=== PATIENT | female | born 1950 | race Caucasian/White ===

== ENCOUNTER → 2022-08-08 | Outpatient (CLI) | payer MEDICARE, SELFPAY ==
--- NOTE | 2022-08-09 07:42 | PFT ---
INTRODUCTION: The patient is a 72-year-old female that presents for pulmonary function studies secondary to a diagnosis of lung mass. Respiratory therapy reported good patient effort. Bronchodilators were used during testing. INTERPRETATION: Forced expiration spirometry demonstrates the presence of a severe large airways obstructive ventilatory defect. There was a significant response to aerosolized bronchodilators. Spirograms are of fair quality but do not plateau indicating slow emptying of the lungs. Body plethysmography was performed and revealed an elevated RV to 148% of predicted, indicative of underlying air trapping. Diffusing capacity by single breath CO is reduced to 55% of predicted. IMPRESSION: Partially reversible severe large airways obstructive ventilatory defect with associated air trapping and symmetric reduction in diffusing capacity.
== END | disposition home or self-care (01) ==
PROVIDERS: PCP Internal Medicine Infectious Disease; Referring Provider Internal Medicine Critical Care Medicine; Visit Provider Internal Medicine Critical Care Medicine
DX: R91.8 Other nonspecific abnormal finding of lung field (principal); F17.211 Nicotine dependence, cigarettes, in remission
CPT/HCPCS: 94060; 94726; 94729

== ENCOUNTER 2022-08-22 11:00 | Day surgery (SDC) | payer MEDICARE, SELFPAY ==
--- NOTE | 2022-08-19 07:32 | HP.PCM_ITS ---
[facility] - General General Date of Service: 08/22/22 HPI Narrative The patient is a 72-year-old female who initially presented to the pulmonary medicine clinic on August 06 for the evaluation of a lung mass. A plain film chest x-ray was obtained on July 09, 2022 due to reported dyspnea.? There was concern for a right hilar lung mass.? In follow-up, a CT chest with contrast was then obtained on July 17, 2022.? That imaging study demonstrated the presence of a right hilar lung mass measuring approximately 9 x 5 cm in size.? There was concern for extrinsic compression of the bronchus intermedius with volume loss in the right middle lobe. The patient has an approximate 03-45-mvre-year smoking history, having quit completely in March 2022.? In addition to her personal smoking history, the patient did grow up in a smoking household.? 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 Pulmonary function studies recently completed on August 09, 2022 demonstrated a partially reversible severe large airways obstructive ventilatory defect with associated air trapping and symmetric reduction in diffusing capacity. [facility] Medical History BMI 23.0-23.9, adult Dyspnea on effort Fatigue Mass of right lung Non-smoker Postnasal drip Standardized adult depression screening tool completed Home Medications cholecalciferol (vitamin D3) 250 mcg (10,000 unit) capsule 250 mcg PO QWEEK 08/05/22 [History Last Taken Unknown] guaifenesin 1,200 mg tablet, extended release 12 hr (Mucinex) 1,200 mg PO BID 08/05/22 [History Last Taken Unknown] lorazepam 0.5 mg tablet (Ativan) 0.5 mg PO BID PRN 08/05/22 [History Last Taken Unknown] magnesium 250 mg tablet 250 mg PO DAILY 08/05/22 [History Last Taken Unknown] mecobalamin (vitamin B12) 2,500 mcg chewable tablet mcg PO 08/05/22 [History Last Taken Unknown] vitamin B complex (B Complex-Vitamin B12 tablet) 1 tab PO DAILY 08/05/22 [History Last Taken Unknown] Allergy/AdvReac Type Severity Reaction Status Date / Time No Known Allergies Allergy Unverified 08/05/22 11:07 Family History Father Asthma Son Asthma Mother Breast cancer Uncle Diabetes Type 1 Surgical History H/O tubal ligation Hx of tonsillectomy Social History (Updated 08/05/22 @ 11:18 by Yamileth Lacy) Smoking Status: Former smoker quit date: 03/23/22 Tobacco: How many years used: 50 how long ago did patient quit smoking: march 2022 alcohol intake: never substance use type: does not use caffeine: Yes Type: coffee Number of servings: 2 ROS ROS Narrative 10 systems were reviewed with pertinent positives as noted in the HPI. Physical Exam Const alert and no apparent distress General Appearance: cooperative HEENT normocephalic and head/scalp atraumatic Eyes PERRL and EOMs intact bilaterally Neck supple General: trachea midline Resp normal respiratory effort Auscultation: Negative for rales, rhonchi or wheezes Cardio regular rate and regular rhythm GI normal to inspection, nondistended, normoactive bowel sounds Extremity no clubbing, cyanosis or edema Skin General Skin Exam: no breakdown Neuro no focal motor deficits and no sensory deficits noted Psych cooperative and affect normal Assessment & Plan Assessment/Plan (1) Lung mass: PLAN: The patient presented to our office for the evaluation of a right hilar lung mass noted on CT imaging of the chest from July 17, 2022.? There does appear to be some extrinsic compression affecting the right bronchus intermedius.? In light of the patient's tobacco abuse history, these findings are certainly concerning for an underlying primary lung malignancy.? I explained to the patient the options for moving forward.? I did recommend that we proceed with airway evaluation with EBUS facilitated bronchoscopy to obtain a tissue diagnosis and stage the mediastinum.? Risks and benefits of the proposed procedure were discussed with the patient at length.? The patient is in agreement to proceed.?
[2022-08-19 13:38] LABS: Platelet Count 405 K/mm3 (150-450)
[2022-08-19 13:46] LABS: Prothrombin Time (Protime)PT. 13.1 SECONDS (11.7-14.9)
[2022-08-22] VITALS (7 sets, daily range): BP systolic 126–179; BP diastolic 72–90; PULSE 90–118; RESP 18–28; TEMP 36.2–36.6; O2SAT 92–99; BMI 22.6
--- NOTE | 2022-08-22 | LUNG_PTH ---
PATIENT: MARIAM KOCH LOC: EN U#:[id number] AGE/SX: 72/F ROOM: RE08/22/[address]: Dr. Jay Covarrubias DO : 1950 BED: DIS: 08/22/2022 SPEC #: [id number] RECD: 08/22/22 13:50 STATUS: NEHEMIAS REQ #: [id number] SOLO: 08/22/22 00:[address]: Jay Covarrubias DEPT: SURGICAL PATHOLOGY RECD BY: Alicia Vogel ENTERED: 08/22/22 13:52 SP TYPE: LUNG BX OTHR DR: Dr. Aditi Caba MD Tissues: Lung, NOS Procedures: FNA Specimen Adequacy Special Stain Group I Surgery Specimen Level IV Cytology Other HEADER OPERATION: Endobronchial ultrasound PRE-OP DIAGNOSIS: Lung mass TISSUE SUBMITTED: Bronchial lesion biopsy MICROSCOPIC DIAGNOSIS Bronchial lesion, biopsy: Non-small cell carcinoma, favor poorly differentiated adenocarcinoma, consistent with lung primary. See comment. SJ:em 08/25/2022 COMMENT The specimen is evaluated at the time of biopsy by Dr. Dawn. Immediate Evaluation = Malignant cells present derived from non-small cell carcinoma. Immunohistochemistry ([id number]) supports the above diagnosis. Molecular studies on the tumor can be performed if clinically indicated. Please notify the laboratory if they are needed. Please also refer to additional cytology specimen [id number]. Case has been reviewed in consultation with Dr. Elder who concurs with the above diagnosis. IDC:AM MICROSCOPIC DESCRIPTION Slides are reviewed. GROSS DESCRIPTION Received in fixative is one container labeled with the patient's name and designated endobronchial biopsy. The specimen consists of multiple irregular fragments of light bunch soft tissue that in aggregate measure 0.5 x 0.1 x 0.1 cm. The specimen is totally submitted in one cassette. One touch imprint is prepared at the time of core biopsy. / LIONEL:em 08/22/2022 TC:0 [facility]: [id number], [id number] ADDENDUM ADDENDUM ADDENDUM ADDENDUM ADDENDUM ADDENDUM ADDENDUM ADDENDUM ADDENDUM ADDENDUM ADDENDUM ADDENDUM ADDENDUM ADDENDUM ADDENDUM ADDENDUM ADDENDUM ADDENDUM ADDENDUM ADDENDUM 09/15/2022 09:34 ADDENDUM 09/15/2022 09:34 ADDENDUM 09/15/2022 09:34 ADDENDUM 09/15/2022 09:34 ADDENDUM 09/15/2022 09:34 PD-L1 (KEYTRUDA) IMMUNOHISTOCHEMICAL ANALYSIS FROM [facility] RESULTS: Tumor proportion score: 100% / Positive [facility] ADVANCED LUNG CANCER NGS REPORT FROM [facility] RESULT SUMMARY: Abnormal IMMUNOTHERAPY BIOMARKERS: Tumor Mutation [place]: High (14.1 Mutations / MB) Microsatellite Instability: MSI Negative (4.03%) PERTINENT NEGATIVE RESULTS: The following genes are NEGATIVE for clinically relevant mutations. Mutational hotspots and surrounding exonic regions were interrogated for DNA level point mutations and indels (fusions not assayed). AKT1, ALK, ATR, CHEK1, DDR2, EGFR, ERBB2, ERBB3, FGFR1, MAP2K1, MET, NRAS, NTRK1, PIK3CA, POLD1, POLE, ROS1, STK11, TERT Please see complete report in e-chart or EMR
--- NOTE | 2022-08-22 | ASPIG_PTH ---
PATIENT: MARIAM KOCH LOC: EN U#:[id number] AGE/SX: 72/F ROOM: RE08/22/[address]: Dr. Jay Covarrubias DO : 1950 BED: DIS: 08/22/2022 SPEC #: [id number] RECD: 08/22/22 13:54 STATUS: NEHEMIAS REFaustina #: [id number] SOLO: 08/22/22 00:[address]: Jay Covarrubias DEPT: CYTOLOGY RECD BY: Alicia Vogel ENTERED: 08/22/22 13:57 SP TYPE: ASP OUT OTHR DR: Dr. Aditi Caba MD Tissues: A - Lung, NOS B - Lung, NOS C - Lung, NOS D - Lung, NOS E - Lung, NOS Procedures: FNA Specimen Adequacy Special Stain Group II Surgery Specimen Level IV Cytology Other HEADER OPERATION: Endobronchial ultrasound PRE-OP DIAGNOSIS: Lung mass TISSUE SUBMITTED: A - EBUS, TBNA, site 7 #1, B - EBUS, TBNA, site 7 #2, C - EBUS, TBNA, site 7, D - EBUS, TBNA, site 7 brush, E - EBUS, TBNA, site 7 brush (smears) DIAGNOSIS CYTOLOGY A. EBUS, TBNA, site 7 #1 (smears): Predominantly respiratory epithelial cells. Negative for malignant cells. B. EBUS, TBNA, site 7 #2 (smears): Malignant cells present derived from non-small cell carcinoma. C. EBUS, TBNA, site 7 fluid (cytospin and cell block): Malignant cells present derived from non-small cell carcinoma. D. EBUS, TBNA, site 7 brush fluid (cytospin and cell block): A few malignant cells present derived from non-small cell carcinoma. E. EBUS, TBNA, site 7 brushings (smears): Malignant cells present derived from non-small cell carcinoma. SJ:em 08/25/2022 COMMENT The specimen is evaluated at the time of procedure by Dr. Dawn. Rapid On-Site Evaluation: A. EBUS, TBNA, site 7 #1: Predominantly respiratory epithelial cells. Negative for malignant cells. B. EBUS, TBNA, site 7 #2: Malignant cells present derived from non-small cell carcinoma. Please also make reference to additional specimen ([id number]), bronchial lesion, biopsy with diagnosis of ?non-small cell carcinoma, favor poorly differentiated adenocarcinoma, consistent with lung primary?. Case has been reviewed in consultation with Dr. Elder who concurs with the above diagnosis. IDC:AM CYTOLOGY STUDY Slides are reviewed. CYTOLOGY GROSS A - Received labeled with the patient's name and and designated EBUS, TBNA, site 7 #1. The specimen consists of two stained smears for PETER (Rapid On-Site Evaluation). B - Received labeled with the patient's name and and designated EBUS, TBNA, site 7 #2. The specimen consists of two stained smears for PETER. C - Received in RPMI is 20 ml of pink, needle rinsed fluid labeled with the patient's name and and designated EBUS, TBNA, site 7. The specimen is submitted for cell block preparation. D - Received is a metallic endoscopic cytobrush with adherent minute fragments of bunch-red tissue brush in 2 ml of clear red fluid and labeled with the patient's name and and designated per the requisition as brush. The material is dislodged from the brush and submitted for cytology preparation including cell block. E - Received are nine smears labeled with the patient's name and designated per the requisition as brush. Submitted for staining. / SJ:rg 08/22/2022 TC:0 CPT: 80389 x2, 67364, 98736 x2, 08660, 61210
--- NOTE | 2022-08-22 | IMM_PTH ---
PATIENT: MARIAM KOCH LOC: EN U#:[id number] AGE/SX: 72/F ROOM: RE08/22/[address]: Dr. Jay Covarrubias DO : 1950 BED: DIS: 08/22/2022 SPEC #: [id number] RECD: 08/25/22 12:35 STATUS: NEHEMIAS REQ #: [id number] SOLO: 08/22/22 00:[address]: Jay Covarrubias DEPT: IMMUNOHISTOCHEMISTRY RECD BY: Lorelei Oliva ENTERED: 08/25/22 12:37 SP TYPE: IMMUNO OTHR DR: Dr. Aditi Caba MD Tissues: Lung, NOS Procedures: RCC (add) NAPSIN A (add) CK20 (add) CK5-6 (add) CK7 (add) CK8 (add) HEP PAR (add) AR (add) TTF1 (add) Pankeratin (add) P40 (add) ER (initial) PHYSICIAN & [address] [address] SPECIMEN INFORMATION: Tissue Source: Bronchial lesion Clinical Info: Lung mass Specimen Number: [id number] CPT code: 66174, 37280 x11 METHODOLOGY: Deparaffinized sections of prefer/formalin-fixed tissue or PAP/DQ stained slides are incubated with monoclonal/polyclonal antibodies/oligonucleotide probes. Localization is made via biotin free immunoperoxidase method. Appropriate controls are performed and reacted as expected. Results on target cell population are indicated in the following table: RESULTS: ANTIBODY / CLONE RESULT ER (6F11) positive, focal AR (1E2) negative AE1-3 (AE1/AE3/PCK26) positive CK7 (OV-TL12/30) positive CK8 (99xcrkJ53) positive CK20 (KS20.8) negative TTF-1 (8G7G3/1) positive Napsin A (Rabbit Polyclonal) positive HepPar (OCh1E5) negative RCC (PN-15) negative CK5-6 (D5 & 1684) negative P40 (BC28) negative These tests were developed and their performance characteristics determined by [facility]. They may not have been cleared or approved by the U.S. Food and Drug Administration. The FDA has determined that such clearance or approval is not necessary. The above immunohistochemical/dualISH markers are ordered and reviewed by the Pathologist. INTERPRETATION: Bronchial lesion, biopsy: Non-small cell carcinoma, favor poorly differentiated adenocarcinoma consistent with lung primary. This case has been reviewed in consultation with Dr. Elder who concurs with the above diagnosis. SJ:em 08/26/2022
[2022-08-22] MEDS: Lactated Ringers 1,000 ML 15 ML IV (11:37)
[2022-08-22] MEDS: Lidocaine Jelly 2% 20 ML Syringe (URO-JET) 1 APPLIC (13:02)
--- NOTE | 2022-08-22 13:38 | OP.BRONCH_ITS ---
Patient Name: Rani Jean Procedure Date: 08/22/2022 12:38 PM Date of : 1950 Age: 72 Procedure: Bronchoscopy Indications: Mediastinal adenopathy, Lung mass suspicious for cancer Providers: Jay Covarrubias MD Referring MD: Jay Covarrubias MD Complications: No immediate complications Procedure: Pre-Anesthesia Assessment: - A History and Physical has been performed. Patient meds and allergies have been reviewed. The risks and benefits of the procedure and the sedation options and risks were discussed with the patient. All questions were answered and informed consent was obtained. Patient identification and proposed procedure were verified prior to the procedure by the physician and the nurse in the procedure room. Mental Status Examination: alert and oriented. Airway Examination: normal oropharyngeal airway. Respiratory Examination: poor air movement. CV Examination: normal. ASA Grade Assessment: III - A patient with severe systemic disease. After reviewing the risks and benefits, the patient was deemed in satisfactory condition to undergo the procedure. The anesthesia plan was to use general anesthesia. Immediately prior to administration of medications, the patient was re-assessed for adequacy to receive sedatives. The heart rate, respiratory rate, oxygen saturations, blood pressure, adequacy of pulmonary ventilation, and response to care were monitored throughout the procedure. The physical status of the patient was re-assessed after the procedure. After I obtained informed consent, the scope was passed under direct vision. Throughout the procedure, the patient's blood pressure, pulse, and oxygen saturations were monitored continuously. The ultrasound bronchoscope was introduced through the mouth, via laryngeal mask airway and advanced to the tracheobronchial tree. The procedure was accomplished without difficulty. The patient tolerated the procedure well. Findings: The laryngeal mask airway is in good position. The vocal cords appear normal. The subglottic space is normal. The trachea is of normal caliber. The ayah is sharp. The tracheobronchial tree was examined to at least the first subsegmental level. Bronchial mucosa and anatomy are normal; there are no endobronchial lesions, and no secretions. The laryngeal mask airway is in good position. The vocal cords appear normal. The subglottic space is normal. The trachea is of normal caliber. The ayah is sharp. The tracheobronchial tree of the left lung was examined to at least the first subsegmental level. Bronchial mucosa and anatomy are normal; there are no endobronchial lesions, and no secretions. Right Lung Abnormalities: Extrinsic compression was found in the bronchus intermedius. The airway lumen is occluded. The lesion was not traversed. A completely obstructing mass was found in the bronchus intermedius. The mass was large and endobronchial. The lesion was not traversed. Endobronchial biopsies of a mass were performed in the bronchus intermedius using a forceps and sent for routine cytology. Three samples were obtained. Brushings of a mass were obtained in the bronchus intermedius with a cytology brush and sent for routine cytology. One sample was obtained The scope was withdrawn and replaced with the EBUS bronchoscope to accomplish the ultrasound examination. Lymph Nodes: An endobronchial ultrasound endoscope was utilized to systematically examine the subcarinal mediastinum (level 7) in order to assist with fine needle aspiration. Lymph node sizing was performed via endobronchial ultrasound for suspected lung cancer. Sampling by transbronchial needle aspiration was also performed using an Olympus EBUS-TBNA 19 gauge needle in the subcarinal mediastinum (level 7) and sent for routine cytology. - The 7 (subcarinal) node was evaluated. Two samples with the needle were obtained. Lymph Nodes: Rapid On-Site Evaluation (PETER): Preliminary cytology was suggestive of non small cell carcinoma (final results are pending) in the subcarinal mediastinum (level 7). Impression: - Mediastinal adenopathy - Lung mass suspicious for cancer - The airway examination of the left lung was normal. - Extrinsic compression was found in the bronchus intermedius. - An endobronchial mass was found in the bronchus intermedius. This lesion is likely malignant. - Endobronchial ultrasound was performed. - Rapid On-Site Evaluation (PETER): Preliminary cytology was suggestive of non small cell carcinoma in node level 7 (final results are pending). - An endobronchial biopsy was performed. - Brushings were obtained. Recommendation: - Await biopsy results. Procedure Code(s): --- Professional --- 75535, Bronchoscopy, rigid or flexible, including fluoroscopic guidance, when performed; with endobronchial ultrasound (EBUS) guided transtracheal and/or transbronchial sampling (eg, aspiration[s]/biopsy[ies]), one or two mediastinal and/or hilar lymph node stations or structures 81186, Bronchoscopy, rigid or flexible, including fluoroscopic guidance, when performed; with bronchial or endobronchial biopsy(s), single or multiple sites 64902, Bronchoscopy, rigid or flexible, including fluoroscopic guidance, when performed; with brushing or protected brushings Diagnosis Code(s): --- Professional --- R59.0, Localized enlarged lymph nodes R91.8, Other nonspecific abnormal finding of lung field CPT copyright 2017 [employer]. All rights reserved. 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 DO Jay Hyde MD 08/22/2022 1:38:16 PM This report has been signed electronically. Number of Addenda: 0 Note Initiated On: 08/22/2022 12:38 PM
== END 2022-08-22 16:05 | disposition home or self-care (01) ==
LOC: EN 11:02 → AC 11:02
PROVIDERS: PCP Internal Medicine Infectious Disease; Referring Provider Internal Medicine Infectious Disease; Visit Provider Internal Medicine Critical Care Medicine
PROC: BB4BZZZ Ultrasonography of Pleura (ICD-10-PCS; CPT 31652; principal; 2022-08-22 11:30)
DX: C34.91 Malignant neoplasm of unspecified part of right bronchus or lung (principal); R59.0 Localized enlarged lymph nodes; Z87.891 Personal history of nicotine dependence; Z79.899 Other long term (current) drug therapy
CPT/HCPCS: 31652; 31625; 31623; 36415; 85049; 85610; 85730; 88161; 88172; 88305; 88312; 88313; 88341; 88342; J7120; J2405

== ENCOUNTER → 2022-09-16 | Outpatient (CLI) | payer MEDICARE, SELFPAY ==
--- NOTE | 2022-09-16 10:00 | PET_ITS ---
EXAMINATION: FDG PET/CT INDICATIONS: 72-year-old female with a history of primary lung carcinoma, presenting for initial staging examination. COMPARISON EXAMINATION: None available INDEX LESION SIZE SUV INTERPRETATION Right mid lung field, right middle lobe 51.8 mm 22.2 Fulfills quantitative criteria for viable neoplasm ? Right thoracic perihilum, mediastinum 56.5 mm 14.4 Fulfills quantitative criteria for viable neoplasm ? Pancreatic head, body, peripancreatic soft tissue mass formation 30.7 mm largest 22.6 max Fulfills quantitative criteria for viable neoplasm ? Bilateral chest wall-rib ? 19.4 max Quantitative criteria for viable neoplasm are fulfilled ? NON-INDEX LESION ? ? ? Additional right hemithorax pulmonary parenchyma ? 1.9 max Quantitative criteria for viable neoplasm not fulfilled TECHNIQUE: Following the intravenous administration of 12.62 mCi of F-18 deoxyglucose via the right wrist, multiplanar image acquisitions of the head, neck, chest, abdomen and pelvis to the level of the midthigh, obtained at one-hour post radiopharmaceutical administration contemporaneously interpreted with the current CT of the chest, abdomen and pelvis dated 09/16/2022 via coregistration reveal: SERUM GLUCOSE LEVEL: 120 mg/dL HEIGHT: 65 inches WEIGHT: 126 pounds FINDINGS: HEAD/NECK: There is no evidence of abnormal increased glucose metabolism in the pharyngeal mucosal space, parapharyngeal space, oropharynx, bilateral-lateral and anterior neck, hypopharynx and distribution of the larynx. The visualized portion of the cerebral cortical-subcortical structures demonstrate symmetric and preserved glucose metabolism. CHEST: Facilitated FDG uptake is noted heterogeneously in the distribution of the right middle lobe. The calculated maximum standard uptake value is 22.2. The maximal axial diameter of the metabolic, morphologic abnormality is 51.8 mm. Additional subtle foci of increased FDG concentration are manifest in the right upper lung field. The calculated standard uptake value is 1.9. Facilitated FDG uptake is manifest in the paraesophageal lymph node basin involving lymph node station 8 and the right thoracic perihilum involving lymph node station 10R. The calculated maximum standard uptake value is 14.4. The maximal axial diameter of the largest corresponding metabolic, morphologic abnormality is 56.[address] of the chest demonstrates the following anatomic characteristics: A right hemithorax pleural effusion is nonglucose avid. Airspace disease defined in the right lobe anterior lung zone demonstrates no evidence of quantitatively significant increased FDG uptake. Atherosclerotic calcification is defined in the thoracic aorta without evidence of dilatation, aneurysm formation. Coronary artery calcification is observed. ABDOMEN/PELVIS: Enhanced FDG uptake is noted in the upper abdominal retroperitoneum which appears contiguous to the pancreatic head and body in a single nodular focus in the peripancreatic lymph node basin. The calculated maximum standard uptake value is 22.6. The maximal axial diameter of the largest metabolic, morphologic abnormality is 30.7 mm. Normal physiologic distribution of the radiopharmaceutical is identified in the hepatic (3.1) and splenic parenchyma, both renal units, urinary bladder, and visualized intestinal tract. CT of the abdomen and pelvis is remarkable for the following: Calcification is noted in the right adnexa without evidence of increased tracer uptake. Atherosclerotic calcification is defined in the abdominal aorta without evidence of dilatation, aneurysm formation. Pelvic arterial calcification is observed. SKELETAL: Facilitated uptake is noted in the bilateral chest wall-rib corresponding to destructive changes noted on CT of the chest dated 09/16/2022 in the analogous locations. The calculated maximum standard uptake value is 19.4. PET/PET/CT Tumor Base -Thigh Init IMPRESSION: 1. ABNORMAL EXAMINATION INDICATIVE OF MALIGNANT-VIABLE NEOPLASM. 2. Increased radiopharmaceutical concentration manifest in the right mid anterior lung, right middle lobe fulfills quantitative criteria for viable neoplasm. 3. Facilitated uptake noted in the right thoracic perihilum and mediastinum fulfills quantitative criteria for malignant transformation (Lidia et al, Journal of Clinical Oncology, 16:2142, 1998). 4. Focal increased radiopharmaceutical concentration in two separate locations in the region of the pancreatic head and body, as well as the soft tissue density in the peripancreatic soft tissues fulfills quantitative criteria for viable neoplasm. 5. Enhanced tracer uptake noted in the left anterior and right posterior chest wall-rib fulfill quantitative criteria for viable osseous neoplasm (John, et al, Clinical Nuclear Medicine, 29:161, 2004). 6. Additional right hemithorax pulmonary parenchymal hypermetabolic foci do not fulfill quantitative criteria for malignant transformation. Electronic Signature Yovany Alex D.O. Accurate Quantification of SUVs for this report are calculated using the exclusive [employer]. ([place]. Patent No. [id number] [phone] [id number] [phone] patent [phone] [id number] [phone] [phone]). Standardization and correction of the FDG SUV metric via [employer] technology allow for vendor non-specific objective quantitative examination comparison and optimization of the sensitivity and specificity of the FDG PET-CT examination. Electronically Signed: Yovany Alex, at 17:48 EDT ,
== END | disposition home or self-care (01) ==
PROVIDERS: PCP Internal Medicine Infectious Disease; Referring Provider Internal Medicine Hematology & Oncology; Visit Provider Internal Medicine Hematology & Oncology
DX: C34.2 Malignant neoplasm of middle lobe, bronchus or lung (principal); D49.1 Neoplasm of unspecified behavior of respiratory system
CPT/HCPCS: 78815; A9552

== ENCOUNTER → 2022-12-31 | Outpatient (CLI) | payer MEDICARE, SELFPAY ==
[2022-12-31 15:05] LABS: Anion Gap 4 (5-15); BUN 15 mg/dL (7-18); BUN/Creat Ratio 29.4 RATIO (10-20); Calcium,Total 8.9 mg/dL (8.5-10.1); Chloride 101 mmol/L (98-107); Creatinine, Serum 0.51 mg/dL (0.55-1.02); EST Glomerular Filtration Rate 126 mL/min (>60); Est Glom Filt Rate - Afr Amer 152 mL/min (>60); Glucose 90 mg/dL (74-106); Potassium 4.2 mmol/L (3.5-5.1); Sodium Level 133 mmol/L (136-145)
== END | disposition home or self-care (01) ==
LOC: LAB 13:20
PROVIDERS: PCP Internal Medicine Infectious Disease; Referring Provider Internal Medicine Nephrology; Visit Provider Internal Medicine Nephrology
DX: N17.9 Acute kidney failure, unspecified (principal)
CPT/HCPCS: 36415; 80048

== ENCOUNTER 2023-05-11 07:36 | Inpatient (IN) | payer MEDICARE, SELFPAY ==
[2023-05-11 07:37] VITALS: BP 139/96; PULSE 93; RESP 14; TEMP 36.5; O2SAT 99
--- NOTE | 2023-05-11 07:53 | CT_ITS ---
STUDY: CT ABDOMEN AND PELVIS WITH CONTRAST REASON FOR EXAM: Female, 72 years old. Hematuria, recent renal biopsy on right RADIATION DOSAGE (If Supplied By Facility): CTDIvol = ( 12.43 ) mGy, DLP = ( 542.59 ) mGy TECHNIQUE: Transaxial images were obtained from the dome of the diaphragm to the symphysis pubis without oral contrast. IV 100mL Isovue-300 was administered. Sagittal and coronal images were reconstructed. Individualized dose optimization techniques were used for this CT. COMPARISON: None. FINDINGS: Focal infiltrate is seen in the right middle lobe with mild volume loss. There is a 2.7 cm x 1.9 cm x 5.7 cm retrocrural lymph node in the upper right side of the abdomen. Coronary artery calcification. There is decreased attenuation of the liver consistent with steatosis. Normal gallbladder and extrahepatic biliary system. Normal spleen. There is dilatation of the pancreatic duct with the atrophy of the body and tail portions of the pancreas. Normal bilateral adrenal glands. There is a 3.2 cm x 3.1 cm heterogeneous hypodense mass in the anterior lower pole of the right kidney. Perinephric stranding is visualized. There is thickening of the posterior pararenal space. This is in keeping with the patient''s history of a recent renal biopsy. Normal left kidney. Normal visualized stomach. Normal small intestine. Normal colon. The appendix is visualized and appears normal. There is diffuse atherosclerotic calcification of the abdominal aorta and major visceral branches, without a demonstrated aneurysm. Normal inferior vena cava. Normal retroperitoneum. There is a 4.8 cm x 6.2 cm mass at the base of the bladder more prominent on the right side. There is a left-sided inguinal hernia containing adipose tissue. There are mild degenerative changes of the visualized lumbar spine. CT/Abdomen/Pelvis W IV Cont ONLY IMPRESSION: Right middle lobe infiltrate with volume loss. Atrophy of the body and tail portions of the pancreas with dilated pancreatic duct. Fatty infiltration of the liver. 3.2 cm x 3.1 cm heterogeneous hypodense mass in the anterior lower pole of the right kidney with right perinephric and perinephric stranding in keeping with recent history of biopsy. There is evidence of a 2.7 cm x 1.9 cm x 5.7 cm right retrocrural enlarged lymph node. There is a 4.8 cm x 6.2 cm mass at the base of the bladder more prominent on the right side. A neoplastic process should be pulled Electronically Signed: Evans Wilson MD at 9:04 EST ,
--- NOTE | 2023-05-11 07:54 | EX.ED.DYSGE1 ---
HPI History of Present Illness Chief Complaint: Complaint Detail of Chief Complaint: Hematuria Informant: patient Narrative Narrative: Patient presents with hematuria that started around 3 AM today. Patient tells me that she had a renal biopsy on May 07 because of a mass on her right kidney. After the biopsy she had a small amount of hematuria that resolved after several hours and she has not had any since until this morning. She complains of urgency but then only able to get small amounts of urine out. She did have some pain in her right low back for about 5 minutes that was dull and achy but now resolved. No significant history of UTIs. Patient currently being treated for lung cancer and is currently on immunotherapy last summer she did have chemotherapy. Patient denies any fevers or chills or sweats. Patient not anticoagulated. [facility] Medical History Anxiety BMI 23.0-23.9, adult Dyspnea on effort Fatigue Former smoker History of echocardiogram History of stress test Mass of right lung Non-smoker Postnasal drip Shortness of breath on exertion Standardized adult depression screening tool completed Wears dentures Wears glasses Home Medications cholecalciferol (vitamin D3) 250 mcg (10,000 unit) capsule 250 mcg PO DAILY 08/05/22 [History Last Taken Unknown] guaifenesin 1,200 mg tablet, extended release 12 hr (Mucinex) 1,200 mg PO BID 08/05/22 [History Last Taken Unknown] lorazepam 0.5 mg tablet (Ativan) 0.5 mg PO BID PRN Anxiety 08/05/22 [History Last Taken 08/22/22 08:30] magnesium 250 mg tablet 250 mg PO DAILY 08/05/22 [History Last Taken Unknown] mecobalamin (vitamin B12) 2,500 mcg chewable tablet 2,500 mcg PO DAILY 08/05/22 [History Last Taken Unknown] vitamin B complex (B Complex-Vitamin B12 tablet) 1 tab PO DAILY 08/05/22 [History Last Taken Unknown] Nebulizer machine #1 ea 08/29/22 [Rx Last Taken Unknown] albuterol sulfate 2.5 mg/3 mL (0.083 %) solution for nebulization 2.5 mg (3 mL) inhalation Q4H PRN Sob &/Or Wheezing #180 mL 08/29/22 [Rx Last Taken Unknown] albuterol sulfate 90 mcg/actuation aerosol inhaler (Ventolin HFA) 2 puff inhalation Q4H PRN shortness of breath or wheezing #18 grams 08/29/22 [Rx Last Taken Unknown] fluticasone fur. 200 mcg-umeclid 62.5 mcg-vilant 25 mcg inhalat.powder (Trelegy Ellipta) 1 inh inhalation DAILY #3 ea 11/17/22 [Rx Last Taken Unknown] Allergy/AdvReac Type Severity Reaction Status Date / Time No Known Allergies Allergy Verified 05/11/23 07:40 Family History Father Asthma Son Asthma Mother Breast cancer Uncle Diabetes Type 1 Surgical History H/O tubal ligation Hx of tonsillectomy Social History Smoking Status: Former smoker quit date: 03/23/22 Tobacco: How many years used: 50 how long ago did patient quit smoking: march 2022 alcohol intake: never substance use type: does not use caffeine: Yes Type: coffee Number of servings: 2 ROS ROS ED Review of Systems ROS Unobtainable: other Constitutional Constitutional ED: Reports lethargy; Denies chills, fever(s), sweats or weight loss Eyes Eyes: Denies blurry vision, change in vision or diplopia ENT ENT ED: Denies rhinorrhea or sore throat Cardiovascular Cardiovascular: Denies chest pain, orthopnea or racing heartbeat Respiratory/Chest Respiratory/Chest: Denies cough, dyspnea, dyspnea on exertion, orthopnea or sputum Gastrointestinal Gastrointestinal: Denies abdominal pain, diarrhea, nausea or vomiting Genitourinary Genitourinary ED: Reports hematuria; Denies dysuria or urinary frequency Musculoskeletal Musculoskeletal: Reports back pain; Denies arthralgias, myalgias or neck pain Integumentary Denies abscess, Abrasions or rash Neurologic Neurologic: Denies headache(s) or weakness Psychiatric Psychiatric: Denies anxiety, depression or suicidal thoughts Endocrine Endocrinology: Denies polydipsia, polyphagia or polyuria Hematologic/Lymphatic Hematologic/Lymphatic: Denies easy bleeding, easy bruising or lymphadenopathy Allergic/Immunologic Allergic/Immunologic ED: Denies mouth swelling, tongue swelling or urticaria EXAM Physical Exam Const Vital Signs: 05/11/23 07:37 Temperature 97.7 F L Temperature Source Temporal Pulse Rate 93 Respiratory Rate 14 Blood Pressure 139/96 H Blood Pressure Mean 110 Pulse Ox 99 Oxygen Delivery Method Room Air Positive well nourished and well developed General Appearance ED: well developed and NAD HEENT Reports TM's clear and moist mucous membranes normocephalic and atraumatic; Negative for trauma or tenderness Tympanic Membrane ED: Yes TM's clear Eyes PERRL and EOMs intact bilaterally General Eye ED: Negative for pale conjunctiva or scleral icterus Neck no lymphadenopathy, supple and no JVD General: Negative for tenderness Chest Wall inspection of chest normal and palpation of chest normal Chest: Negative for tenderness Resp normal respiratory effort and clear to auscultation bilaterally Effort and Inspection: Negative for respiratory distress or pain with movement Auscultation: Negative for rhonchi, wheezes or diminished lung sounds Cardio regular rate, regular rhythm, S1 normal heart sound, S2 normal heart sound and no murmurs Peripheral Pulses: pulses 2+ throughout GI normal to inspection, nondistended, normoactive bowel sounds, soft to palpation, non-tender, non-distended and no masses Back/Spine no CVA tenderness and no thoracic nor lumbar tenderness Extremity normal to inspection General Extremety ED: Negative for edema General Extremity: Negative for edema Neuro oriented x3, CN's II-XII intact bilaterally, no sensory deficits noted and gait normal Sensorium / Orientation: awake, alert, oriented to person, oriented to place and oriented to time Motor Exam: strength 5/5 throughout and strength abnormal Psych mental status grossly normal Skin no rashes or lesions noted and no wounds MDM MDM MDM Narrative Medical decision making narrative: Patient presents with hematuria. IV line established on arrival. CBC with differential count of 3.3 with hemoglobin 10.0 and platelet count of 145. Chemistries unremarkable. BUN was 12 and creatinine 0.73. Urinalysis obtained showed greater than 100 RBCs and 0-5 WBCs with +1 bacteria. I will send off a culture. We did obtain a CT scan of the abdomen pelvis with IV contrast that showed a enlarged lymph node right upper abdomen as well as some right perinephric stranding from prior biopsy. Patient also noted to have a mass on the right kidney which was biopsied. Patient also noted to have a mass in the bladder that measured 4.8 x 6.2 cm. I was able to review her blood work from April 30 prior to her biopsy and her hemoglobin at that time was 12.2. She has dropped 2 g. Discussed case with urologist on-call who recommended bladder irrigation and admission. His suspicion is that the bladder mass may be a large blood clot. May need further diagnostics if bladder mass does not resolve with irrigation such as a bladder scope. Case will be discussed with hospitalist to evaluate patient for admission and urologist will consult. Lab Data Attestation: I reviewed the patient's lab results. Labs: Laboratory Results - last 24 hr 05/11/23 08:00 WBC 3.3 L RBC 2.99 L Hgb 10.0 L Hct 29.9 L MCV 100.0 H MCH 33.4 H MCHC 33.4 RDW Std Deviation 45.1 H RDW Coeff of Francie 12.5 Plt Count 145 L MPV 9.0 Immature Gran % (Auto) 0.600 Neut % (Auto) 54.8 Lymph % (Auto) 22.2 Mora % (Auto) 21.8 H Eos % (Auto) 0.0 Baso % (Auto) 0.6 Absolute Neuts (auto) 1.8 L Absolute Lymphs (auto) 0.72 L Nucleated RBC % 0 Sodium 135 L Potassium 4.2 Chloride 105 Carbon Dioxide 26.0 Anion Gap 4 L BUN 12 Creatinine 0.73 Estim Creat Clear Calc 54.56 Est GFR (MDRD) Af Amer 101 Est GFR (MDRD) Non-Af 84 BUN/Creatinine Ratio 16.5 Glucose 142 H Calcium 9.1 Urine Color Red Urine Clarity Turbid Urine pH 7.0 Ur Specific [place] 1.010 Urine Protein 500 H Urine Glucose (UA) Normal Urine Ketones 5 H Urine Occult Blood 150 H Urine Nitrite Negative Urine Bilirubin Negative Urine Urobilinogen Normal Ur Leukocyte Esterase Negative Urine RBC > 100 SEEN Urine WBC 0-5 SEEN Ur Squamous Epith Cells 5-10 SEEN Urine Bacteria 1+ Urine Mucus 0 SEEN Radiography Diagnostic Testing: Clinical Impression(s) from Imaging Studies Abdomen/Pelvis CT 05/11/23 07:53 IMPRESSION: Right middle lobe infiltrate with volume loss. Atrophy of the body and tail portions of the pancreas with dilated pancreatic duct. Fatty infiltration of the liver. 3.2 cm x 3.1 cm heterogeneous hypodense mass in the anterior lower pole of the right kidney with right perinephric and perinephric stranding in keeping with recent history of biopsy. There is evidence of a 2.7 cm x 1.9 cm x 5.7 cm right retrocrural enlarged lymph node. There is a 4.8 cm x 6.2 cm mass at the base of the bladder more prominent on the right side. A neoplastic process should be pulled Electronically Signed: Evans Wilson MD at 9:04 EST , Discharge Plan Triage Chief Complaint: Complaint ED Provider: Carlos Chanel Dx/Rx/DC Orders Clinical Impression: Hematuria, History of lung cancer, Bladder mass Prescriptions: No Action Mucinex 1,200 mg tablet extended release 12hr 1,200 mg PO BID lorazepam [Ativan] 0.5 mg tablet 0.5 mg PO BID PRN (Reason: Anxiety) cholecalciferol (vitamin D3) 250 mcg (10,000 unit) capsule 250 mcg PO DAILY magnesium 250 mg tablet 250 mg PO DAILY vitamin B complex [B Complex-Vitamin B12] Tablet 1 tab PO DAILY mecobalamin (vitamin B12) 2,500 mcg tablet,chewable 2,500 mcg PO DAILY albuterol sulfate 2.5 mg /3 mL (0.083 %) solution for nebulization 2.5 mg inhalation Q4H PRN (Reason: Sob &/Or Wheezing) Qty: 180 3RF albuterol sulfate [Ventolin HFA] 90 mcg/actuation HFA aerosol inhaler 2 puff inhalation Q4H PRN (Reason: shortness of breath or wheezing) Qty: 18 6RF (DME) Nebulizer machine See Rx Instructions .ROUTE .MEDSUPPLY Qty: 1 0RF Rx Instructions: As directed Trelegy Ellipta 200-62.5-25 mcg blister with device 1 inh inhalation DAILY Qty: 3 3RF Primary Care Provider: Feroz Miranda Referrals: Aditi Caba MD [Non-Staff] - Disposition Disposition: Acute Care [facility]
[2023-05-11 08:04] VITALS: BMI 24.5
[2023-05-11] MEDS: 0.9% Normal Saline (1000mL) 1,000 ML 150 ML IV ×3 (08:06→18:18)
[2023-05-11 08:07] LABS: Mucous, Urine 0 SEEN /hpf (<or=2+)
[2023-05-11 08:13] LABS: Absolute Lymphocyte Count 0.72 X10^3/uL (0.83-4.51); Absolute Neutrophil Count 1.8 X10^3/uL (2.0-7.7); Basophil# 0.02 X10^3/uL; Basophil% 0.6 % (0-1); Color, Urine Red (Yellow); Glucose, Dipstick Normal (Normal); Hematocrit 29.9 % (37-47); Ketone-Dipstick 5 mg/dl (Negative); Leukocyte Esterase-Dipstick Negative /ul (Negative); Lymphocyte # 0.72 X10^3/ul (0.83-4.51); Lymphocyte % 22.2 % (19-41); Mean Corp Hgb Conc 33.4 g/dL (32-36); Mean Corpuscular Hgb 33.4 pg (27.0-32.0); Monocyte# 0.71 X10^3/uL; Monocyte% 21.8 % (0-10); NRBC Flagged by Analyzer 0 % (0-5); Neutrophil # 1.78 X10^3/uL (2.7-7.7); Neutrophil % 54.8 % (47-70); Nitrite-Dipstick Negative (Negative); Occult Blood-Urine 150 /ul (Negative); Platelet Count 145 K/mm3 (150-450); Protein-Dipstick 500 mg/dl (Negative); RBC Distribution Width CV 12.5 % (11.6-14.6); RBC Distribution Width SD 45.1 fl (35.1-43.9); Red Blood Count 2.99 M/mm3 (4.2-5.4); Urine Bilirubin Dipstick Negative (Negative); Urine Clarity Turbid (Clear); Urine Urobilinogen Normal (Normal); White Blood Count 3.3 K/mm3 (4.4-11.0)
[2023-05-11 08:18] LABS: Squamous Epithelial Cells - UA 5-10 SEEN /hpf (5-10); White Blood Cells 0-5 SEEN /hpf (0-5)
[2023-05-11 08:19] LABS: Bacteria 1+ /hpf (None Seen)
[2023-05-11 08:22] LABS: Red Blood Cells-Urine > 100 SEEN /hpf (0-5)
[2023-05-11 08:24] LABS: Anion Gap 4 (5-15); BUN 12 mg/dL (7-18); BUN/Creat Ratio 16.5 RATIO (10-20); Calcium,Total 9.1 mg/dL (8.5-10.1); Chloride 105 mmol/L (98-107); Creatinine, Serum 0.73 mg/dL (0.55-1.02); EST Glomerular Filtration Rate 84 mL/min (>60); Est Glom Filt Rate - Afr Amer 101 mL/min (>60); Estimated Creatinine Clearance 54.56 ml/min; Glucose 142 mg/dL (74-106); Potassium 4.2 mmol/L (3.5-5.1); Sodium Level 135 mmol/L (136-145)
[2023-05-11] MEDS: Ondansetron 4 MG/2 ML Vial IV (09:20)
--- NOTE | 2023-05-11 09:55 | PCM.HP.STD ---
HPI - General General Date of Admission: 05/11/23 Date of Service: 05/11/23 Chief Complaint: hematuria HPI Narrative MARIAM KOCH, is a 72 F with a PMh as outlined including lung cancer on immunotherapy, who presents via the ED on 05/11/2023 with a complaint of hematuria. She has a history of lung cancer on immunotherapy, and had an abdominal lymph node which her oncologist wanted biopsied, so she was sent up to [facility]. They couldnt biopsy it there due to the location, but biopsied a renal mass which was noticed incidentally. Patient had some hematuria after the procedure but it resolved and she was discharged home. She woke up this sana with david hematuria. She denied any frequency but admitted to some urgency. She also admitted to some right lower back pain which had now resolved. She is not on any blood thinners. REview of systems was otherwise negative. Vitals in the ED were BP of 139/96, NE of 93, RR of 14 and temp of 97.7F. She was saturating at 99% on room air. CBC showed hb of 10. wbc of 3.3 and platelets of 145. Chemistry showed sodium of 135, potassium of 4.2 and Cr of 0.73. Urinalysis showed bacteria of 1+. CT abdomen and pelvis showed a right middle lobe infiltrate with volume loss and 3.2 x 3.1 cm heterogenous hypodense mass in tami anterio rlower pole of hte right kidney with right perinephric stranding in keeping with recent biopsy. There was also a retrocural enlarged lymph node and a 4.8 x 6.2cm mass at the base of the bladder more prominent on the right side. He is being admitted to be managed for new onset hematuria. [facility] Medical History Anxiety BMI 23.0-23.9, adult Cancer COPD (chronic obstructive pulmonary disease) Dyspnea on effort Fatigue Former smoker History of echocardiogram History of stress test Kidney disease Mass of right lung Non-smoker Postnasal drip Shortness of breath on exertion Standardized adult depression screening tool completed Wears dentures Wears glasses Home Medications cholecalciferol (vitamin D3) 250 mcg (10,000 unit) capsule 250 mcg PO DAILY supplement 08/05/22 [History Last Taken 05/10/23] guaifenesin 1,200 mg tablet, extended release 12 hr (Mucinex) 1,200 mg PO PRN congestion 08/05/22 [History Last Taken Unknown] lorazepam 0.5 mg tablet (Ativan) 0.5 mg PO BID PRN Anxiety 08/05/22 [History Last Taken 08/22/22 08:30] magnesium 250 mg tablet 250 mg PO DAILY supp 08/05/22 [History Last Taken Unknown] mecobalamin (vitamin B12) 2,500 mcg chewable tablet 2,500 mcg PO DAILY supplement 08/05/22 [History Last Taken 05/10/23] vitamin B complex (B Complex-Vitamin B12 tablet) 1 tab PO DAILY supplement 08/05/22 [History Last Taken 05/10/23] Nebulizer machine #1 ea 08/29/22 [Rx Last Taken Unknown] albuterol sulfate 2.5 mg/3 mL (0.083 %) solution for nebulization 2.5 mg (3 mL) inhalation Q4H PRN Sob &/Or Wheezing #180 mL 08/29/22 [Rx Last Taken Unknown] albuterol sulfate 90 mcg/actuation aerosol inhaler (Ventolin HFA) 2 puff inhalation Q4H PRN shortness of breath or wheezing #18 grams 08/29/22 [Rx Last Taken Unknown] fluticasone fur. 200 mcg-umeclid 62.5 mcg-vilant 25 mcg inhalat.powder (Trelegy Ellipta) 1 inh inhalation DAILY breathing #3 ea 11/17/22 [Rx Last Taken 05/11/23] alprazolam 0.5 mg tablet 0.5 mg PO BID PRN anxiety 05/11/23 [History Last Taken Unknown] Allergy/AdvReac Type Severity Reaction Status Date / Time No Known Allergies Allergy Verified 05/11/23 07:40 Family History (Reviewed 12/31/22 @ 12:52 by Alexia Lundy PUBLIC HEALTH SERVICE OFFICER, PUBLIC HEALTH SERVICE OFFICER-C) Father Asthma Son Asthma Mother Breast cancer Uncle Diabetes Type 1 Surgical History H/O tubal ligation Hx of tonsillectomy Social History (Reviewed 12/31/22 @ 12:51 by Alexia Lundy PUBLIC HEALTH SERVICE OFFICER, PUBLIC HEALTH SERVICE OFFICER-C) Smoking Status: Former smoker quit date: 03/23/22 Tobacco: How many years used: 50 how long ago did patient quit smoking: march 2022 alcohol intake: never substance use type: does not use caffeine: Yes Type: coffee Number of servings: 2 ROS Review of Systems ROS Unobtainable: Denies due to encephalopathy Constitutional Constitutional: Denies anorexia, chills, fatigue, fever(s), malaise, weakness or weight loss Eyes Eyes: Denies change in vision ENT HEENT: Denies dysphagia, nasal congestion or throat swelling Cardiovascular Cardiovascular: Denies chest pain, edema, orthopnea or palpitations Respiratory/Chest Respiratory/Chest: Denies cough, shortness of breath at rest or shortness of breath with exertion Gastrointestinal Gastrointestinal: Denies abdominal pain, diarrhea, dyspepsia, hematemesis, hematochezia, melena, nausea or vomiting Genitourinary Genitourinary: Reports hematuria; Denies dysuria, nocturia or oliguria Musculoskeletal Musculoskeletal: Denies back pain or joint swelling Integumentary Integumentary: Denies dry skin Psychiatric Psychiatric: Denies anxiety Vital Signs Vital Signs Vital Signs: 05/11/23 07:37 Temperature 97.7 F L Temperature Source Temporal Pulse Rate 93 Respiratory Rate 14 Blood Pressure 139/96 H Blood Pressure Mean 110 Pulse Ox 99 Oxygen Delivery Method Room Air Weight Weight: 134 lb Body Mass Index (BMI) 24.5 Physical Exam Const alert and no apparent distress General Appearance: cooperative and well developed HEENT normocephalic, head/scalp atraumatic, moist oral mucous membranes and oropharynx normal Eyes PERRL and EOMs intact bilaterally Neck no lymphadenopathy and supple Lymph Lymphatic: no lymphadenopathy noted and no lymphedema noted Resp normal respiratory effort, normal air movement and clear to auscultation bilaterally Cardio regular rate, regular rhythm, S1 normal heart sound, S2 normal heart sound and no murmurs GI normal to inspection, nondistended, normoactive bowel sounds, soft to palpation and non-tender Extremity normal capillary refill, no clubbing, cyanosis or edema and no calf tenderness General Extremity: no tenderness to palpation of joints or extremities Skin General Skin Exam: no breakdown Neuro CN's II-XII intact bilaterally, no focal motor deficits, no sensory deficits noted and deep tendon reflexes 2+ bilaterally Motor Exam: strength 5/5 throughout and general weakness Psych thought process normal and cooperative Appearance: appropriate Results Lab / Micro Data 05/11/23 08:00 05/11/23 08:00 Labs: Laboratory Results - last 24 hr 05/11/23 08:00: WBC 3.3 L, RBC 2.99 L, Hgb 10.0 L, Hct 29.9 L, MCV 100.0 H, MCH 33.4 H, MCHC 33.4, RDW Std Deviation 45.1 H, RDW Coeff of Francie 12.5, Plt Count 145 L, MPV 9.0, Immature Gran % (Auto) 0.600, Neut % (Auto) 54.8, Lymph % (Auto) 22.2, [place] % (Auto) 21.8 H, Eos % (Auto) 0.0, Baso % (Auto) 0.6, Absolute Neuts (auto) 1.8 L, Absolute Lymphs (auto) 0.72 L, Nucleated RBC % 0, Sodium 135 L, Potassium 4.2, Chloride 105, Carbon Dioxide 26.0, Anion Gap 4 L, BUN 12, Creatinine 0.73, Estim Creat Clear Calc 54.56, Est GFR (MDRD) Af Amer 101, Est GFR (MDRD) Non-Af 84, BUN/Creatinine Ratio 16.5, Glucose 142 H, Calcium 9.1, Urine Color Red, Urine Clarity Turbid, Urine pH 7.0, Ur Specific [place] 1.010, Urine Protein 500 H, Urine Glucose (UA) Normal, Urine Ketones 5 H, Urine Occult Blood 150 H, Urine Nitrite Negative, Urine Bilirubin Negative, Urine Urobilinogen Normal, Ur Leukocyte Esterase Negative, Urine RBC > 100 SEEN, Urine WBC 0-5 SEEN, Ur Squamous Epith Cells 5-10 SEEN, Urine Bacteria 1+, Urine Mucus 0 SEEN Imaging Radiology Impression Abdomen/Pelvis CT 05/11/23 07:53 IMPRESSION: Right middle lobe infiltrate with volume loss. Atrophy of the body and tail portions of the pancreas with dilated pancreatic duct. Fatty infiltration of the liver. 3.2 cm x 3.1 cm heterogeneous hypodense mass in the anterior lower pole of the right kidney with right perinephric and perinephric stranding in keeping with recent history of biopsy. There is evidence of a 2.7 cm x 1.9 cm x 5.7 cm right retrocrural enlarged lymph node. There is a 4.8 cm x 6.2 cm mass at the base of the bladder more prominent on the right side. A neoplastic process should be pulled Electronically Signed: Evans Wilson MD at 9:04 EST , Assessment & Plan Assessment/Plan (1) Bladder mass: (2) History of lung cancer: (3) Hematuria: PLAN: Plan #New onset hematuria Started having flank hematuria this morning. Had a right kidney biopsy on 07 May on account of metastatic lung cancer with a renal lesion. Says she had mild hematuria after the biopsy but it resolved until this morning. Hemoglobin is 10. Will check CBC every 4 hourly Hydrated with IV fluids. Continuous bladder irrigation. Urology consulted. CT of the abdomen and pelvis done showed a mass in the bladder. However patient pulled out her imaging done at [facility] March 2023 and there was no mention of any bladder mass. I also spoke to her oncologist Dr. Harris who reviewed her previous images and there was no such mention. It is doubtful that she would have had a bladder lesion grow so quickly within less than a month. Question this is a possibly hematoma that is being seen on the CAT scan. Urology consulted. Await recommendations. Transfuse if Hb is less than 7. #Pancytopenia: WBC is 3.3 with hemoglobin of 10 and platelets of 145. Check CBC every 4 hourly. May be due to immunotherapy for lung cancer. #Metastatic lung cancer Has mets to the pancreas and the kidney. Had a kidney biopsy done recently. Results pending. Currently on immunotherapy. Follow-up with her oncologist on outpatient basis. Discussed with oncologist Dr. Grimes. DVT prophylaxis: SCDs. CODE STATUS: Full code Patient counseled extensively about different types of CODE STATUS including full code, DNR CCA and DNR CCA. Patient elects to be full code. Total [id number] time 16 minutes. Total time spent on evaluation and management of patient, reviewing chart and specialist notes, discussing plan with patient, discussion with nursing and ancillary staff as well as documentation:77 mins Charges/Coding Visit Charges Inpatient E&M: 37317 Init Hosp L3 Procedures Hospitalists Procedures: 91285 Advncd Care Plan 30 Min
[2023-05-11 11:27] VITALS: BP 165/88; PULSE 90; RESP 16; O2SAT 94
[2023-05-11 11:37] VITALS: BP 165/88; PULSE 90; RESP 16; TEMP 36.8; O2SAT 95
[2023-05-11 11:41] VITALS: BMI 24.7
[2023-05-11 12:06] VITALS: BP 167/93; PULSE 90; RESP 18; TEMP 36.6; O2SAT 96
[2023-05-11] MEDS: 0.9% Saline Lock 10 ML Syringe IV (12:15)
--- NOTE | 2023-05-11 16:26 | PCM.CONS.U ---
Assessment & Plan Assessment/Plan (1) Bladder mass: (2) History of lung cancer: (3) Hematuria: (4) Asthma-COPD overlap syndrome: (5) Adenocarcinoma of lung: QUALIFIERS: Laterality: unspecified laterality Qualified Code(s): C34.90 - Malignant neoplasm of unspecified part of unspecified bronchus or lung (6) Lung mass: HPI Consult Data Date of Consult: 05/11/23 HPI Narrative Reason for Consultation: Possible bladder mass bladder mass HPI Narrative: MARIAM KOCH, is a 72 F who presents to the hospital she had a biopsy of a right renal mass done in [place] she did report some bleeding after this and then last night she had significant amount of dark old blood and some pain she presented to the ER CAT scan was done that demonstrated a large what appears to be mass in the bladder but on my review this looks more like a large blood clot in the bladder probably resolve the bleeding from the biopsy of her renal mass in the right kidney she does have a history of lung cancer that is metastatic and is currently immunotherapy. I recommend we continue with bladder irrigation to see if we can dissolve the clot but does look like an organized clot probably what to take her to surgery later this week plan for Thursday for cystoscopy and evacuation of blood clot. [facility] Medical History Anxiety BMI 23.0-23.9, adult Cancer COPD (chronic obstructive pulmonary disease) Dyspnea on effort Fatigue Former smoker History of echocardiogram History of stress test Kidney disease Mass of right lung Non-smoker Postnasal drip Shortness of breath on exertion Standardized adult depression screening tool completed Wears dentures Wears glasses Home Medications cholecalciferol (vitamin D3) 250 mcg (10,000 unit) capsule 250 mcg PO DAILY supplement 08/05/22 [History Last Taken 05/10/23] guaifenesin 1,200 mg tablet, extended release 12 hr (Mucinex) 1,200 mg PO PRN congestion 08/05/22 [History Last Taken Unknown] lorazepam 0.5 mg tablet (Ativan) 0.5 mg PO BID PRN Anxiety 08/05/22 [History Last Taken 08/22/22 08:30] magnesium 250 mg tablet 250 mg PO DAILY supp 08/05/22 [History Last Taken Unknown] mecobalamin (vitamin B12) 2,500 mcg chewable tablet 2,500 mcg PO DAILY supplement 08/05/22 [History Last Taken 05/10/23] vitamin B complex (B Complex-Vitamin B12 tablet) 1 tab PO DAILY supplement 08/05/22 [History Last Taken 05/10/23] Nebulizer machine #1 ea 08/29/22 [Rx Last Taken Unknown] albuterol sulfate 2.5 mg/3 mL (0.083 %) solution for nebulization 2.5 mg (3 mL) inhalation Q4H PRN Sob &/Or Wheezing #180 mL 08/29/22 [Rx Last Taken Unknown] albuterol sulfate 90 mcg/actuation aerosol inhaler (Ventolin HFA) 2 puff inhalation Q4H PRN shortness of breath or wheezing #18 grams 08/29/22 [Rx Last Taken Unknown] fluticasone fur. 200 mcg-umeclid 62.5 mcg-vilant 25 mcg inhalat.powder (Trelegy Ellipta) 1 inh inhalation DAILY breathing #3 ea 11/17/22 [Rx Last Taken 05/11/23] alprazolam 0.5 mg tablet 0.5 mg PO BID PRN anxiety 05/11/23 [History Last Taken Unknown] Allergy/AdvReac Type Severity Reaction Status Date / Time No Known Allergies Allergy Verified 05/11/23 07:40 Family History Father Asthma Son Asthma Mother Breast cancer Uncle Diabetes Type 1 Surgical History H/O tubal ligation Hx of tonsillectomy Social History Smoking Status: Former smoker quit date: 03/23/22 Tobacco: How many years used: 50 how long ago did patient quit smoking: march 2022 alcohol intake: never substance use type: does not use caffeine: Yes Type: coffee Number of servings: 2 Physical Exam Const alert and oriented x3 General Appearance: cooperative HEENT normocephalic, head/scalp atraumatic, EAC's normal and TM's normal bilaterally Eyes PERRL and EOMs intact bilaterally Pupil: sluggish Neck no lymphadenopathy, supple and no JVD General: trachea midline Lymph Lymphatic: no lymphadenopathy noted, lymphedema and lymphadenopathy Resp normal respiratory effort, normal air movement and clear to auscultation bilaterally Cardio regular rate, regular rhythm and peripheral pulses 2+ throughout GI soft to palpation, non-tender and non-distended Extremity normal capillary refill and no clubbing, cyanosis or edema General Extremity: no tenderness to palpation of joints or extremities Skin no rashes or lesions noted General Skin Exam: turgor normal Lesions: no lesions Rashes: no rashes Neuro CN's II-XII intact bilaterally Speech: speech normal Motor Exam: strength 5/5 throughout; Negative for general weakness Psych thought process normal, cooperative and affect normal Appearance: appropriate Medical Records Data Attestation: I reviewed the patient's medical records Lab / Micro Data 05/11/23 08:00 05/11/23 08:00 Labs: Laboratory Results - last 24 hr 05/11/23 08:00: WBC 3.3 L, RBC 2.99 L, Hgb 10.0 L, Hct 29.9 L, MCV 100.0 H, MCH 33.4 H, MCHC 33.4, RDW Std Deviation 45.1 H, RDW Coeff of Francie 12.5, Plt Count 145 L, MPV 9.0, Immature Gran % (Auto) 0.600, Neut % (Auto) 54.8, Lymph % (Auto) 22.2, [place] % (Auto) 21.8 H, Eos % (Auto) 0.0, Baso % (Auto) 0.6, Absolute Neuts (auto) 1.8 L, Absolute Lymphs (auto) 0.72 L, Nucleated RBC % 0, Sodium 135 L, Potassium 4.2, Chloride 105, Carbon Dioxide 26.0, Anion Gap 4 L, BUN 12, Creatinine 0.73, Estim Creat Clear Calc 54.56, Est GFR (MDRD) Af Amer 101, Est GFR (MDRD) Non-Af 84, BUN/Creatinine Ratio 16.5, Glucose 142 H, Calcium 9.1, Urine Color Red, Urine Clarity Turbid, Urine pH 7.0, Ur Specific [place] 1.010, Urine Protein 500 H, Urine Glucose (UA) Normal, Urine Ketones 5 H, Urine Occult Blood 150 H, Urine Nitrite Negative, Urine Bilirubin Negative, Urine Urobilinogen Normal, Ur Leukocyte Esterase Negative, Urine RBC > 100 SEEN, Urine WBC 0-5 SEEN, Ur Squamous Epith Cells 5-10 SEEN, Urine Bacteria 1+, Urine Mucus 0 SEEN Imaging Radiology Impression Abdomen/Pelvis CT 05/11/23 07:53 IMPRESSION: Right middle lobe infiltrate with volume loss. Atrophy of the body and tail portions of the pancreas with dilated pancreatic duct. Fatty infiltration of the liver. 3.2 cm x 3.1 cm heterogeneous hypodense mass in the anterior lower pole of the right kidney with right perinephric and perinephric stranding in keeping with recent history of biopsy. There is evidence of a 2.7 cm x 1.9 cm x 5.7 cm right retrocrural enlarged lymph node. There is a 4.8 cm x 6.2 cm mass at the base of the bladder more prominent on the right side. A neoplastic process should be pulled Electronically Signed: Evans Wilson MD at 9:04 EST ,
[2023-05-11 17:29] VITALS: BP 119/58; PULSE 94; RESP 18; TEMP 36.8; O2SAT 95
[2023-05-11 18:22] LABS: Absolute Lymphocyte Count 0.92 X10^3/uL (0.83-4.51); Absolute Neutrophil Count 1.3 X10^3/uL (2.0-7.7); Basophil# 0.02 X10^3/uL; Basophil% 0.6 % (0-1); Hematocrit 26.2 % (37-47); Hemoglobin 8.4 g/dL (12.0-15.0); Lymphocyte # 0.92 X10^3/ul (0.83-4.51); Mean Corp Hgb Conc 32.1 g/dL (32-36); Mean Corpuscular Hgb 32.3 pg (27.0-32.0); Mean Corpuscular Volume 100.8 fL (81-99); Mean Platelet Vol. 8.9 fl (6.2-12.0); Monocyte# 0.92 X10^3/uL; NRBC Flagged by Analyzer 0 % (0-5); Neutrophil % 41.1 % (47-70); Platelet Count 130 K/mm3 (150-450); RBC Distribution Width CV 12.6 % (11.6-14.6); RBC Distribution Width SD 45.9 fl (35.1-43.9); White Blood Count 3.2 K/mm3 (4.4-11.0)
[2023-05-11 21:06] VITALS: BP 186/99; PULSE 120; RESP 20; TEMP 37; O2SAT 94
[2023-05-11] MEDS: LORazepam 0.5 MG Tablet PO (21:17)
[2023-05-11 22:15] LABS: Absolute Lymphocyte Count 0.88 X10^3/uL (0.83-4.51); Absolute Neutrophil Count 1.5 X10^3/uL (2.0-7.7); Basophil# 0.01 X10^3/uL; Basophil% 0.2 % (0-1); Eosinophil# 0.01 X10^3/uL; Eosinophils% 0.2 % (0-5); Hemoglobin 8.3 g/dL (12.0-15.0); Lymphocyte # 0.88 X10^3/ul (0.83-4.51); Lymphocyte % 21.9 % (19-41); Mean Corp Hgb Conc 31.9 g/dL (32-36); Mean Corpuscular Hgb 32.2 pg (27.0-32.0); Mean Corpuscular Volume 100.8 fL (81-99); Mean Platelet Vol. 8.7 fl (6.2-12.0); Monocyte% 39.9 % (0-10); NRBC Flagged by Analyzer 0 % (0-5); Neutrophil # 1.48 X10^3/uL (2.7-7.7); Neutrophil % 37.1 % (47-70); POSITIVE DIFFERENTIAL YES; Platelet Count 137 K/mm3 (150-450); RBC Distribution Width CV 12.6 % (11.6-14.6); RBC Distribution Width SD 46.3 fl (35.1-43.9); Red Blood Count 2.58 M/mm3 (4.2-5.4)
[2023-05-11 22:18] LABS: Differential Indicated SCAN CRITERIA MET
[2023-05-11 22:37] LABS: Differential Comment SCANNED
[2023-05-12] MEDS: 0.9% Normal Saline (1000mL) 1,000 ML 150 ML IV ×4 (01:03→20:19)
[2023-05-12 02:20] LABS: Absolute Lymphocyte Count 1.13 X10^3/uL (0.83-4.51); Absolute Neutrophil Count 1.5 X10^3/uL (2.0-7.7); Basophil# 0.01 X10^3/uL; Basophil% 0.3 % (0-1); Eosinophil# 0.01 X10^3/uL; Eosinophils% 0.3 % (0-5); Hematocrit 23.5 % (37-47); Hemoglobin 7.7 g/dL (12.0-15.0); Lymphocyte # 1.13 X10^3/ul (0.83-4.51); Mean Corp Hgb Conc 32.8 g/dL (32-36); Mean Corpuscular Volume 100.9 fL (81-99); Mean Platelet Vol. 9.3 fl (6.2-12.0); Monocyte# 1.23 X10^3/uL; Monocyte% 31.5 % (0-10); NRBC Flagged by Analyzer 0 % (0-5); Neutrophil % 38.4 % (47-70); Platelet Count 130 K/mm3 (150-450); RBC Distribution Width CV 12.8 % (11.6-14.6); RBC Distribution Width SD 45.9 fl (35.1-43.9); Red Blood Count 2.33 M/mm3 (4.2-5.4); White Blood Count 3.9 K/mm3 (4.4-11.0)
[2023-05-12 04:15] VITALS: BP 134/71; PULSE 92; RESP 18; TEMP 36.6; O2SAT 92
[2023-05-12] MEDS: Ipratropium/Albuterol Sulfate 3 ML AMPUL.NEB INHALATION ×2 (06:49→13:33)
[2023-05-12] MEDS: Budesonide Respules 0.5 MG/2 ML AMPUL.NEB. INHALATION (06:49)
[2023-05-12 06:50] VITALS: PULSE 89; RESP 16
[2023-05-12 06:54] LABS: Absolute Lymphocyte Count 0.89 X10^3/uL (0.83-4.51); Absolute Neutrophil Count 1.4 X10^3/uL (2.0-7.7); Basophil# 0.01 X10^3/uL; Basophil% 0.3 % (0-1); Eosinophil# 0.01 X10^3/uL; Eosinophils% 0.3 % (0-5); Hematocrit 25.4 % (37-47); Hemoglobin 8.4 g/dL (12.0-15.0); Lymphocyte # 0.89 X10^3/ul (0.83-4.51); Lymphocyte % 24.3 % (19-41); Mean Corp Hgb Conc 33.1 g/dL (32-36); Mean Corpuscular Hgb 33.6 pg (27.0-32.0); Mean Corpuscular Volume 101.6 fL (81-99); Monocyte% 35.5 % (0-10); NRBC Flagged by Analyzer 0 % (0-5); Neutrophil # 1.44 X10^3/uL (2.7-7.7); Neutrophil % 39.3 % (47-70); Platelet Count 132 K/mm3 (150-450); RBC Distribution Width CV 12.8 % (11.6-14.6); RBC Distribution Width SD 46.8 fl (35.1-43.9); White Blood Count 3.7 K/mm3 (4.4-11.0)
[2023-05-12 07:24] LABS: Anion Gap 2 (5-15); BUN 7 mg/dL (7-18); BUN/Creat Ratio 12.5 RATIO (10-20); Calcium,Total 8.1 mg/dL (8.5-10.1); Chloride 113 mmol/L (98-107); Creatinine, Serum 0.56 mg/dL (0.55-1.02); EST Glomerular Filtration Rate 113 mL/min (>60); Est Glom Filt Rate - Afr Amer 137 mL/min (>60); Estimated Creatinine Clearance 54.74 ml/min; Glucose 113 mg/dL (74-106); Potassium 3.9 mmol/L (3.5-5.1); Sodium Level 141 mmol/L (136-145)
[2023-05-12 07:59] VITALS: BP 118/64; PULSE 94; RESP 18; TEMP 36.9; O2SAT 95
[2023-05-12] MEDS: Acetaminophen 325 MG Tablet 650 MG PO (08:15)
[2023-05-12] MEDS: Vitamin B Comp W-C Capsule 1 CAP PO (08:18)
[2023-05-12] MEDS: Cholecalciferol (Vit D3) 125 MCG CAPSULE (5,000 UNITS) 250 MCG PO (08:18)
--- NOTE | 2023-05-12 10:30 | CASEMGMT ---
DEVANTE ALVARADO Assessment: Face to Face with pt for initial transition planning/care coordination assessment. RN CHRISTIANO introduced self and role at [facility], pt voices understanding and consents to assessment. Pt is A&O x4 and answers all questions appropriately at this time. Pt sitting up in bed in no distress with friend and granddtr at bedside. Pt agreeable to assessment with visitors present. Care providers, pharmacy, and demographics verified/updated. Admitting Dx: Hematuria PCP:Ruben Specialists:Alyssa, onc; selene Bass D.Brown, pulm Preferred Pharmacy: [facility] Insurance: [employer] [facility] Prescription Benefit: yes LNOK: Genoveva Ruelas, friend; Penny Carreno dtr Living Arrangements: Pt lives with grandson who is staying while pt is alone ( is at [facility] for 30 days) in a two story home with 2 steps to enter without a rail. Pt reports she is I in ADL's and IADL's and denies concerns at home. Transportation: Pt drives self and denies concerns with transportation. DME:nebulizer, doesn't use HHC/SNF: Denies hx of Pt states no concerns with going home at time of dc. Pt states no further concerns/needs. CM to follow. Advised pt to ask CM if any further question/concerns/needs arise, voices understanding. Pt Goal: Home Plan: Home
--- NOTE | 2023-05-12 12:53 | PN_ITS ---
Subjective Subjective Patient seen and examined. She had no active complaints. She had an uneventful night. Hematuria has resolved. Review of systems otherwise negative. Objective Data Objective Data Vital Signs: Vital Signs Temp Pulse Resp BP Pulse Ox O2 Del Method 98.5 F 94 18 118/64 95 Room Air 05/12/23 07:59 05/12/23 07:59 05/12/23 07:59 05/12/23 07:59 05/12/23 07:59 05/12/23 08:03 Oxygen Delivery Method Room Air Weight: 135 lb Body Mass Index (BMI) 24.7 Intake & Output: Intake and Output for Last 24 Hours 05/10/23 05/11/23 05/12/23 23:59 23:59 23:59 Intake Total 1530.0 / 1530.0 1795 / 1795 Output Total 7450 / 7450 1550 / 1550 Balance -5920.0 / -5920.0 245 / 245 Lab / Micro Data 05/12/23 06:40 05/12/23 06:40 Labs: Laboratory Results - last 24 hr 05/11/23 18:08: WBC 3.2 L, RBC 2.60 L, Hgb 8.4 L, Hct 26.2 L, MCV 100.8 H, MCH 32.3 H, MCHC 32.1, RDW Std Deviation 45.9 H, RDW Coeff of Francie 12.6, Plt Count 130 L, MPV 8.9, Immature Gran % (Auto) 0.300, Neut % (Auto) 41.1 L, Lymph % (Auto) 29.0, [place] % (Auto) 29.0 H, Eos % (Auto) 0.0, Baso % (Auto) 0.6, Absolute Neuts (auto) 1.3 L, Absolute Lymphs (auto) 0.92, Nucleated RBC % 0 05/11/23 22:04: WBC 4.0 L, RBC 2.58 L, Hgb 8.3 L, Hct 26.0 L, MCV 100.8 H, MCH 32.2 H, MCHC 31.9 L, RDW Std Deviation 46.3 H, RDW Coeff of Francie 12.6, Plt Count 137 L, MPV 8.7, Immature Gran % (Auto) 0.700, Neut % (Auto) 37.1 L, Lymph % (Auto) 21.9, [place] % (Auto) 39.9 H, Eos % (Auto) 0.2, Baso % (Auto) 0.2, Absolute Neuts (auto) 1.5 L, Absolute Lymphs (auto) 0.88, Nucleated RBC % 0, Differential Comment SCANNED, Antibody Screen NEGATIVE 05/12/23 02:06: WBC 3.9 L, RBC 2.33 L, Hgb 7.7 L, Hct 23.5 L, MCV 100.9 H, MCH 33.0 H, MCHC 32.8, RDW Std Deviation 45.9 H, RDW Coeff of Francie 12.8, Plt Count 130 L, MPV 9.3, Immature Gran % (Auto) 0.500, Neut % (Auto) 38.4 L, Lymph % (Auto) 29.0, [place] % (Auto) 31.5 H, Eos % (Auto) 0.3, Baso % (Auto) 0.3, Absolute Neuts (auto) 1.5 L, Absolute Lymphs (auto) 1.13, Nucleated RBC % 0 05/12/23 06:40: WBC 3.7 L, RBC 2.50 L, Hgb 8.4 L, Hct 25.4 L, MCV 101.6 H, MCH 33.6 H, MCHC 33.1, RDW Std Deviation 46.8 H, RDW Coeff of Francie 12.8, Plt Count 132 L, MPV 9.0, Immature Gran % (Auto) 0.300, Neut % (Auto) 39.3 L, Lymph % (Auto) 24.3, [place] % (Auto) 35.5 H, Eos % (Auto) 0.3, Baso % (Auto) 0.3, Absolute Neuts (auto) 1.4 L, Absolute Lymphs (auto) 0.89, Nucleated RBC % 0, Sodium 141, Potassium 3.9, Chloride 113 H, Carbon Dioxide 26.0, Anion Gap 2 L, BUN 7, Creatinine 0.56, Estim Creat Clear Calc 54.74, Est GFR (MDRD) Af Amer 137, Est GFR (MDRD) Non-Af 113, BUN/Creatinine Ratio 12.5, Glucose 113 H, Calcium 8.1 L Physical Exam Const alert, oriented x3 and no apparent distress General Appearance: cooperative and well developed HEENT normocephalic, head/scalp atraumatic, moist oral mucous membranes and oropharynx normal Eyes PERRL and EOMs intact bilaterally Neck no lymphadenopathy and supple Lymph Lymphatic: no lymphadenopathy noted and no lymphedema noted Resp normal respiratory effort, normal air movement and clear to auscultation b ilaterally Cardio regular rate, regular rhythm, S1 normal heart sound, S2 normal heart sound and no murmurs GI normal to inspection, nondistended, normoactive bowel sounds, soft to palpation and non-tender Extremity normal capillary refill, no clubbing, cyanosis or edema and no calf tenderness General Extremity: no tenderness to palpation of joints or extremities Skin General Skin Exam: no breakdown Neuro CN's II-XII intact bilaterally, no focal motor deficits, no sensory deficits noted and deep tendon reflexes 2+ bilaterally Motor Exam: strength 5/5 throughout and general weakness Psych thought process normal and cooperative Appearance: appropriate Assessment & Plan Assessment/Plan (1) Bladder mass: (2) History of lung cancer: (3) Hematuria: PLAN: Plan #New onset hematuria * resolved. Had continuous bladder irrigation * likely a sequelae of the right kidney biopsy she had no May 07 2023 * hb today is 8.4. * Urology on board. * CT of the abdomen and pelvis done showed a mass in the bladder. However patient pulled out her imaging done at [facility] March 2023 and there was no mention of any bladder mass. THis bladder mass was likely a blood clot. * Transfuse if Hb is less than 7. * #Pancytopenia: WBC is 3.7 today with hemoglobin of 8.4 and platelets of 132. Check CBC every 4 hourly. May be due to immunotherapy for lung cancer. #Metastatic lung cancer * Has mets to the pancreas and the kidney. Had a kidney biopsy done recently. Results pending. * Currently on immunotherapy. Follow-up with her oncologist on outpatient basis. Discussed with oncologist Dr. Grimes. * DVT prophylaxis: SCDs. CODE STATUS: Full code * Patient counseled extensively about different types of CODE STATUS including full code, DNR CCA and DNR CCA. Patient elects to be full code. Total [id number] time 16 minutes. * Charges/Coding Visit Charges Inpatient E&M: 03960 Subs Hosp L2
[2023-05-12 13:33] VITALS: PULSE 88; RESP 14
[2023-05-12 14:00] VITALS: BP 125/65; PULSE 95; RESP 18; TEMP 36.8; O2SAT 95
--- NOTE | 2023-05-12 18:35 | CT_ITS ---
STUDY: CT ABDOMEN AND PELVIS WITH CONTRAST REASON FOR EXAM: Female, 72 years old. Follow up BLADDER MASS, PT HAD KIDNEY BIOPSY 05/07/2023, NOW HAS HEMATURIA WITH CLOTS, HX:COPD, LUNG CANCER WITH METS RADIATION DOSAGE (If Supplied By Facility): CTDIvol = ( 13.27 ) mGy, DLP = ( 1259.17 ) mGycm TECHNIQUE: Transaxial images were obtained from the dome of the diaphragm to the symphysis pubis without oral contrast. IV 100mL Isovue-370 was administered. Sagittal and coronal images were reconstructed. Individualized dose optimization techniques were used for this CT. COMPARISON: May 11, 2023. FINDINGS: There is right middle lobe consolidation. There is small right pleural effusion. There are 3.0 x 3.0 cm retrocrural lymph nodes. The visualized portions of the heart are within normal limits. Normal liver. Normal gallbladder and extrahepatic biliary system. Normal spleen. There is atrophy of the body and tail of the pancreas with dilatation of the pancreatic duct. There are enlarged peripancreatic lymph nodes measuring up to 2.5 cm. Normal bilateral adrenal glands. There is 3.4 x 3.2 cm enhancing solid mass in the anterior lower pole of the right kidney. Normal left kidney. Normal visualized stomach. Normal small intestine. Normal colon. There is non-visualization of the appendix. There is diffuse atherosclerotic calcification of the abdominal aorta, without a demonstrated aneurysm. Normal inferior vena cava. Normal retroperitoneum. There is a Desouza catheter in the urinary bladder. Normal visualized uterus. There is no free fluid in the abdomen or pelvis. Normal abdominal wall. There are degenerative changes of the visualized lumbar spine. CT/Abdomen/Pelvis WITH Contrast IMPRESSION: Right renal mass consistent with renal carcinoma or metastatic disease. Enlarged upper abdominal and retrocrural lymph nodes. Desouza catheter in the bladder. No dominant mass in the bladder. Previously seen abnormality likely represented hematoma. Right middle lobe consolidation of the lung. Electronically Signed: Taurus Hassan MD at 20:24 EST ,
[2023-05-12] MEDS: ALPRAZolam 0.5 MG Tablet PO (19:39)
[2023-05-12 19:42] VITALS: BP 157/100; PULSE 116; RESP 15; TEMP 37.1; O2SAT 95
--- NOTE | 2023-05-12 22:16 | NURSING ---
CBI DC'D PER NEW ORDER DR BRIDGES. ALSO SURGERY CANCELED FOR TOMORROW BASED ON CT ABD/PELVIS RESULTS.
[2023-05-13 03:00] VITALS: BP 124/75; PULSE 81; RESP 15; TEMP 36.8; O2SAT 93; O2SAT 94
--- NOTE | 2023-05-13 07:39 | PCM.CONS.U ---
HPI Consult Data Date of Consult: 05/13/23 HPI Narrative Reason for Consultation: Gross hematuria after biopsy HPI Narrative: MARIAM KOCH, is a 72 F who presents she had a biopsy of a renal mass which had bleeding CT scan demonstrated large blood clot in the bladder we irrigated the patient repeat CAT scan showed the blood clots completely gone at this point we can stop irrigation and remove the Desouza catheter signing off call with questions [facility] Medical History Anxiety BMI 23.0-23.9, adult Cancer COPD (chronic obstructive pulmonary disease) Dyspnea on effort Fatigue Former smoker History of echocardiogram History of stress test Kidney disease Mass of right lung Non-smoker Postnasal drip Shortness of breath on exertion Standardized adult depression screening tool completed Wears dentures Wears glasses Home Medications cholecalciferol (vitamin D3) 250 mcg (10,000 unit) capsule 250 mcg PO DAILY supplement 08/05/22 [History Last Taken 05/10/23] guaifenesin 1,200 mg tablet, extended release 12 hr (Mucinex) 1,200 mg PO PRN congestion 08/05/22 [History Last Taken Unknown] lorazepam 0.5 mg tablet (Ativan) 0.5 mg PO BID PRN Anxiety 08/05/22 [History Last Taken 08/22/22 08:30] magnesium 250 mg tablet 250 mg PO DAILY supp 08/05/22 [History Last Taken Unknown] mecobalamin (vitamin B12) 2,500 mcg chewable tablet 2,500 mcg PO DAILY supplement 08/05/22 [History Last Taken 05/10/23] vitamin B complex (B Complex-Vitamin B12 tablet) 1 tab PO DAILY supplement 08/05/22 [History Last Taken 05/10/23] Nebulizer machine #1 ea 08/29/22 [Rx Last Taken Unknown] albuterol sulfate 2.5 mg/3 mL (0.083 %) solution for nebulization 2.5 mg (3 mL) inhalation Q4H PRN Sob &/Or Wheezing #180 mL 08/29/22 [Rx Last Taken Unknown] albuterol sulfate 90 mcg/actuation aerosol inhaler (Ventolin HFA) 2 puff inhalation Q4H PRN shortness of breath or wheezing #18 grams 08/29/22 [Rx Last Taken Unknown] fluticasone fur. 200 mcg-umeclid 62.5 mcg-vilant 25 mcg inhalat.powder (Trelegy Ellipta) 1 inh inhalation DAILY breathing #3 ea 11/17/22 [Rx Last Taken 05/11/23] alprazolam 0.5 mg tablet 0.5 mg PO BID PRN anxiety 05/11/23 [History Last Taken Unknown] Allergy/AdvReac Type Severity Reaction Status Date / Time No Known Allergies Allergy Verified 05/11/23 07:40 Family History Father Asthma Son Asthma Mother Breast cancer Uncle Diabetes Type 1 Surgical History H/O tubal ligation Hx of tonsillectomy Social History Smoking Status: Former smoker quit date: 03/23/22 Tobacco: How many years used: 50 how long ago did patient quit smoking: march 2022 alcohol intake: never substance use type: does not use caffeine: Yes Type: coffee Number of servings: 2 Lab / Micro Data 05/12/23 06:40 05/12/23 06:40 Imaging Radiology Impression Abdomen/Pelvis CT 05/12/23 18:35 IMPRESSION: Right renal mass consistent with renal carcinoma or metastatic disease. Enlarged upper abdominal and retrocrural lymph nodes. Desouza catheter in the bladder. No dominant mass in the bladder. Previously seen abnormality likely represented hematoma. Right middle lobe consolidation of the lung. Electronically Signed: Taurus Hassan MD at 20:24 EST ,
[2023-05-13 08:16] VITALS: O2SAT 95
[2023-05-13 08:39] VITALS: BP 128/71; PULSE 91; RESP 16; TEMP 37.1; O2SAT 97
[2023-05-13 08:39] LABS: Absolute Lymphocyte Count 1.03 X10^3/uL (0.83-4.51); Absolute Neutrophil Count 1.5 X10^3/uL (2.0-7.7); Basophil# 0.01 X10^3/uL; Basophil% 0.3 % (0-1); Eosinophil# 0.04 X10^3/uL; Hematocrit 25.7 % (37-47); Hemoglobin 8.2 g/dL (12.0-15.0); Lymphocyte # 1.03 X10^3/ul (0.83-4.51); Lymphocyte % 26.2 % (19-41); Mean Corp Hgb Conc 31.9 g/dL (32-36); Mean Corpuscular Hgb 32.8 pg (27.0-32.0); Mean Corpuscular Volume 102.8 fL (81-99); Monocyte# 1.38 X10^3/uL; Monocyte% 35.1 % (0-10); NRBC Flagged by Analyzer 0 % (0-5); Neutrophil # 1.45 X10^3/uL (2.7-7.7); Neutrophil % 36.9 % (47-70); Platelet Count 164 K/mm3 (150-450); RBC Distribution Width CV 13.2 % (11.6-14.6); RBC Distribution Width SD 47.8 fl (35.1-43.9); White Blood Count 3.9 K/mm3 (4.4-11.0)
[2023-05-13 08:53] LABS: Anion Gap 3 (5-15); BUN 4 mg/dL (7-18); Calcium,Total 8.1 mg/dL (8.5-10.1); Chloride 111 mmol/L (98-107); EST Glomerular Filtration Rate 129 mL/min (>60); Est Glom Filt Rate - Afr Amer 156 mL/min (>60); Estimated Creatinine Clearance 54.74 ml/min; Glucose 94 mg/dL (74-106); Potassium 3.4 mmol/L (3.5-5.1); Sodium Level 141 mmol/L (136-145)
[2023-05-13] MEDS: Vitamin B Comp W-C Capsule 1 CAP PO (08:53)
[2023-05-13] MEDS: Cholecalciferol (Vit D3) 125 MCG CAPSULE (5,000 UNITS) 250 MCG PO (08:53)
--- NOTE | 2023-05-13 10:14 | PCM.DC.SUM ---
Providers Date of Admission: 05/11/23 Date of Discharge: 05/13/23 Primary Care Physician: Dr. Feroz Miranda, DO Consultations 05/11/23 11:36 Consult: Urology Routine Consulting Provider: Librado Hitchcock Reason for Consult: hematuria EMERGENT Consult: No MD Notified: Yes Date Notified: 05/11/23 Time Notified: 10:18 Method of Notification: Text Reason For Visit: HEMATURIA Diagnosis Discharge Diagnosis (1) Bladder mass: Status: Acute Code(s): N32.89 - Other specified disorders of bladder (2) History of lung cancer: Status: Acute Code(s): Z85.118 - Personal history of other malignant neoplasm of bronchus and lung (3) Hematuria: Status: Acute Code(s): R31.9 - Hematuria, unspecified Plan #New onset hematuria resolved. Had continuous bladder irrigation likely a sequelae of the right kidney biopsy she had no May 07 2023 hb today is 8.4. Urology on board. CT of the abdomen and pelvis done showed a mass in the bladder. However patient pulled out her imaging done at [facility] March 2023 and there was no mention of any bladder mass. THis bladder mass was likely a blood clot. Transfuse if Hb is less than 7. #Pancytopenia: WBC is 3.7 today with hemoglobin of 8.4 and platelets of 132. Check CBC every 4 hourly. May be due to immunotherapy for lung cancer. #Metastatic lung cancer Has mets to the pancreas and the kidney. Had a kidney biopsy done recently. Results pending. Currently on immunotherapy. Follow-up with her oncologist on outpatient basis. Discussed with oncologist Dr. Grimes. DVT prophylaxis: SCDs. CODE STATUS: Full code Patient counseled extensively about different types of CODE STATUS including full code, DNR CCA and DNR CCA. Patient elects to be full code. Total [id number] time 16 minutes. Medications at Discharge Home Medications cholecalciferol (vitamin D3) 250 mcg (10,000 unit) capsule 250 mcg PO DAILY supplement 08/05/22 guaifenesin 1,200 mg tablet, extended release 12 hr (Mucinex) 1,200 mg PO PRN congestion 08/05/22 lorazepam 0.5 mg tablet (Ativan) 0.5 mg PO BID PRN Anxiety 08/05/22 magnesium 250 mg tablet 250 mg PO DAILY supp 08/05/22 mecobalamin (vitamin B12) 2,500 mcg chewable tablet 2,500 mcg PO DAILY supplement 08/05/22 vitamin B complex (B Complex-Vitamin B12 tablet) 1 tab PO DAILY supplement 08/05/22 Nebulizer machine #1 ea 08/29/22 albuterol sulfate 2.5 mg/3 mL (0.083 %) solution for nebulization 2.5 mg (3 mL) inhalation Q4H PRN Sob &/Or Wheezing #180 mL 08/29/22 albuterol sulfate 90 mcg/actuation aerosol inhaler (Ventolin HFA) 2 puff inhalation Q4H PRN shortness of breath or wheezing #18 grams 08/29/22 fluticasone fur. 200 mcg-umeclid 62.5 mcg-vilant 25 mcg inhalat.powder (Trelegy Ellipta) 1 inh inhalation DAILY breathing #3 ea 11/17/22 alprazolam 0.5 mg tablet 0.5 mg PO BID PRN anxiety 05/11/23 Hospital Course Operations None Procedures None Summary of Care Provided Minutes Spent on Discharge: 50 Hospital Course: MARIAM KOCH, is a 72 F with a PMh as outlined including lung cancer on immunotherapy, who presents via the ED on 05/11/2023 with a complaint of hematuria. She has a history of lung cancer on immunotherapy, and had an abdominal lymph node which her oncologist wanted biopsied, so she was sent up to [facility] [address] [place]. They couldnt biopsy it there due to the location, but biopsied a renal mass which was noticed incidentally. Patient had some hematuria after the procedure but it resolved and she was discharged home. She woke up this sana with david hematuria. She denied any frequency but admitted to some urgency. She also admitted to some right lower back pain which had now resolved. She is not on any blood thinners. REview of systems was otherwise negative. Vitals in the ED were BP of 139/96, KS of 93, RR of 14 and temp of 97.7F. She was saturating at 99% on room air. CBC showed hb of 10. wbc of 3.3 and platelets of 145. Chemistry showed sodium of 135, potassium of 4.2 and Cr of 0.73. Urinalysis showed bacteria of 1+. CT abdomen and pelvis showed a right middle lobe infiltrate with volume loss and 3.2 x 3.1 cm heterogenous hypodense mass in tami anterio rlower pole of hte right kidney with right perinephric stranding in keeping with recent biopsy. There was also a retrocural enlarged lymph node and a 4.8 x 6.2cm mass at the base of the bladder more prominent on the right side. She was admitted to be managed for new onset hematuria. She was started on continuous bladder irrigation. Urology was consulted. The bladder mass was thought to be more likely due to hematoma in the bladder. Hematuria resolved with IV fluid hydration in the continuous bladder irrigation. Patient did not require blood transfusion. Her hemoglobin was 8.2 at time of discharge. Hematuria was thought to be likely be due to the kidney biopsy. She remained stable and was discharged home on 05/13/2023. She is follow-up with her primary care doctor within 1 to 2 weeks. She is also to follow-up with urology and hair oncologist. Patient seen and examined prior to discharge. She had no active complaints and had an uneventful night. Review of systems otherwise negative. Labs and vitals reviewed. Home medication reviewed and reconciled. Physical Exam Const alert, oriented x3 and no apparent distress General Appearance: cooperative, comfortable, well kempt and well developed HEENT normocephalic, head/scalp atraumatic, hearing grossly normal bilaterally, moist oral mucous membranes and oropharynx normal Mouth: oral and palatal mucosa normal Eyes PERRL, EOMs intact bilaterally and conjunctivae normal Neck no lymphadenopathy and supple Lymph Lymphatic: no lymphadenopathy noted and no lymphedema noted Resp normal respiratory effort, normal air movement, no retractions, no use of accessory muscles and clear to auscultation bilaterally Cardio regular rate, regular rhythm, S1 normal heart sound, S2 normal heart sound and no murmurs GI normal to inspection, nondistended, normoactive bowel sounds, soft to palpation and non-tender Extremity normal to inspection, full ROM, normal capillary refill, no clubbing, cyanosis or edema and no calf tenderness General Extremity: no tenderness to palpation of joints or extremities Skin no rashes or lesions noted General Skin Exam: no breakdown Neuro oriented x3, CN's II-XII intact bilaterally, moves all extremities, no focal motor deficits, no sensory deficits noted and deep tendon reflexes 2+ bilaterally Sensorium / Orientation: awake Motor Exam: strength 5/5 throughout and general weakness Psych thought process normal and cooperative Appearance: appropriate Weight / BMI Weight Weight: 135 lb Body Mass Index (BMI) 24.7 ABG / Lab / Microbiology Data 05/13/23 07:13 05/13/23 07:13 Laboratory: Laboratory Results - last 24 hr 05/13/23 07:13: WBC 3.9 L, RBC 2.50 L, Hgb 8.2 L, Hct 25.7 L, MCV 102.8 H, MCH 32.8 H, MCHC 31.9 L, RDW Std Deviation 47.8 H, RDW Coeff of Francie 13.2, Plt Count 164, MPV 9.0, Immature Gran % (Auto) 0.500, Neut % (Auto) 36.9 L, Lymph % (Auto) 26.2, [place] % (Auto) 35.1 H, Eos % (Auto) 1.0, Baso % (Auto) 0.3, Absolute Neuts (auto) 1.5 L, Absolute Lymphs (auto) 1.03, Nucleated RBC % 0, Sodium 141, Potassium 3.4 L, Chloride 111 H, Carbon Dioxide 27.0, Anion Gap 3 L, BUN 4 L, Creatinine 0.50 L, Estim Creat Clear Calc 54.74, Est GFR (MDRD) Af Amer 156, Est GFR (MDRD) Non-Af 129, BUN/Creatinine Ratio 8.0 L, Glucose 94, Calcium 8.1 L Radiography Diagnostic Testing: Radiology Impression Abdomen/Pelvis CT 05/12/23 18:35 IMPRESSION: Right renal mass consistent with renal carcinoma or metastatic disease. Enlarged upper abdominal and retrocrural lymph nodes. Desouza catheter in the bladder. No dominant mass in the bladder. Previously seen abnormality likely represented hematoma. Right middle lobe consolidation of the lung. Electronically Signed: Taurus Hassan MD at 20:24 EST , D/C Instructions Discharge Diet: Low fat / Low cholesterol Discharge Activity: Return to Normal Activity Weight Bearing Status: Weight bearing as tolerated Call your doctor if you observe: Fever of 101 or Higher, Shortness of breath, Dizziness, Swelling in the ankles and - (hematuria) Meaningful Use Info Meaningful Use Diagnoses (Choose all that apply): None applicable Discharge Plan Admission Admit Date/Time: 05/11/23 10:14 Primary Reason for Your Visit: hematuria Attending Provider: Graciela Quijano Primary Care Provider: Feroz Miranda Consulting Providers: Librado Hitchcock Instructions Patient Instructions: What is Hematuria? Discharge Orders/Prescriptions Prescriptions: Continued guaifenesin [Mucinex] 1,200 mg tablet extended release 12hr 1,200 mg PO PRN lorazepam [Ativan] 0.5 mg tablet 0.5 mg PO BID PRN (Reason: Anxiety) cholecalciferol (vitamin D3) 250 mcg (10,000 unit) capsule 250 mcg PO DAILY magnesium 250 mg tablet 250 mg PO DAILY vitamin B complex [B Complex-Vitamin B12] Tablet 1 tab PO DAILY mecobalamin (vitamin B12) 2,500 mcg tablet,chewable 2,500 mcg PO DAILY albuterol sulfate 2.5 mg /3 mL (0.083 %) solution for nebulization 2.5 mg inhalation Q4H PRN (Reason: Sob &/Or Wheezing) Qty: 180 3RF albuterol sulfate [Ventolin HFA] 90 mcg/actuation HFA aerosol inhaler 2 puff inhalation Q4H PRN (Reason: shortness of breath or wheezing) Qty: 18 6RF (DME) Nebulizer machine See Rx Instructions .ROUTE .MEDSUPPLY Qty: 1 0RF Rx Instructions: As directed alprazolam 0.5 mg tablet 0.5 mg PO BID PRN Trelegy Ellipta 200-62.5-25 mcg blister with device 1 inh inhalation DAILY Qty: 3 3RF Referrals / Follow Up: Feroz Miranda DO [Primary Care Provider] - Within 2 Weeks Librado Hitchcock MD [Med Staff - Active Staff] - Within 2 Weeks Nikolas Shah DO [Med Staff - Active Staff] - Within 1 Week Aditi Caba MD [Non-Staff] - Disposition Disposition (needs filled in before D/C Order can be placed): Home, Self Care Charges/Coding Visit Charges Inpatient E&M: 45682 Disch Hosp >30min
--- NOTE | 2023-05-13 10:39 | CASEMGMT ---
RN CM met with pt bedside. Pt has DC orders and reports she is ready to get out of here . Pt still with patel catheter in place. Spoke with RN who is awaiting an order to remove. Pt will DC home with self care. Yu DREW, RN, CCM
--- NOTE | 2023-05-13 10:40 | PHA.DC.MR.R ---
Pharmacy [place] Med Reconciliation Pharmacy Service has performed discharge medication reconciliation for this patient. The patient's discharge medication list was reviewed for discrepancies and discrepancies were resolved. Medications at Discharge Home Medications cholecalciferol (vitamin D3) 250 mcg (10,000 unit) capsule 250 mcg PO DAILY supplement 08/05/22 guaifenesin 1,200 mg tablet, extended release 12 hr (Mucinex) 1,200 mg PO PRN congestion 08/05/22 lorazepam 0.5 mg tablet (Ativan) 0.5 mg PO BID PRN Anxiety 08/05/22 magnesium 250 mg tablet 250 mg PO DAILY supp 08/05/22 mecobalamin (vitamin B12) 2,500 mcg chewable tablet 2,500 mcg PO DAILY supplement 08/05/22 vitamin B complex (B Complex-Vitamin B12 tablet) 1 tab PO DAILY supplement 08/05/22 Nebulizer machine #1 ea 08/29/22 albuterol sulfate 2.5 mg/3 mL (0.083 %) solution for nebulization 2.5 mg (3 mL) inhalation Q4H PRN Sob &/Or Wheezing #180 mL 08/29/22 albuterol sulfate 90 mcg/actuation aerosol inhaler (Ventolin HFA) 2 puff inhalation Q4H PRN shortness of breath or wheezing #18 grams 08/29/22 fluticasone fur. 200 mcg-umeclid 62.5 mcg-vilant 25 mcg inhalat.powder (Trelegy Ellipta) 1 inh inhalation DAILY breathing #3 ea 11/17/22 alprazolam 0.5 mg tablet 0.5 mg PO BID PRN anxiety 05/11/23
== END 2023-05-13 12:50 | disposition home or self-care (01) | DRG 698 ==
LOC: ED 09:42 → MS3 10:22
PROVIDERS: Admitting Provider Student in an Organized Health Care Education/Training Program; Emergency Provider Emergency Medicine; PCP Student in an Organized Health Care Education/Training Program; Visit Provider Student in an Organized Health Care Education/Training Program
DX: N99.89 Other postprocedural complications and disorders of genitourinary system (principal); D61.811 Other drug-induced pancytopenia; C78.89 Secondary malignant neoplasm of other digestive organs; C79.00 Secondary malignant neoplasm of unspecified kidney and renal pelvis; C34.90 Malignant neoplasm of unspecified part of unspecified bronchus or lung; J44.9 Chronic obstructive pulmonary disease, unspecified; F41.9 Anxiety disorder, unspecified; R31.0 Gross hematuria; Z79.51 Long term (current) use of inhaled steroids; Z79.899 Other long term (current) drug therapy; Z87.891 Personal history of nicotine dependence; Y84.8 Other medical procedures as the cause of abnormal reaction of the patient, or of later complication, without mention of misadventure at the time of the procedure
CPT/HCPCS: 36415; 74177; 80048; 81001; 85025; 86850; 86900; 86901; 94640; 99284; J7030; Q9967; A4216; J2405

== ENCOUNTER 2023-05-23 20:05 | Inpatient (IN) | payer MEDICARE, SELFPAY ==
[2023-05-23 20:06] VITALS: BP 112/73; PULSE 113; RESP 16; TEMP 37.2; O2SAT 93
[2023-05-23 21:30] VITALS: BP 116/69; PULSE 65; RESP 16; TEMP 37.1; O2SAT 95
--- NOTE | 2023-05-23 21:36 | EKG12_ITS ---
Test Reason : DYSRHYTHMIA Blood Pressure : / mmHG Vent. Rate : 108 BPM Atrial Rate : 108 BPM P-R Int : 122 ms QRS Dur : 134 ms QT Int : 340 ms P-R-T Axes : 066 068 046 degrees QTc Int : 455 ms Sinus tachycardia Possible Left atrial enlargement Right bundle branch block Abnormal ECG Confirmed by Suhas Cota ([id number]), editor news CATHERINE FOLEY ([id number]) on 05/25/2023 10:31:19 AM Referred By: Confirmed By:Suhas Cota
--- NOTE | 2023-05-23 21:41 | EX.ED.DYSGE1 ---
HPI <LEOLA Garrido - Last Filed: 05/23/23 22:04> History of Present Illness Chief Complaint: Shortness of Breath Narrative Narrative: Patient is a 72-year-old female with history of COPD, history of right-sided lung cancer who sees Dr. Acharya, the patient receives chemotherapy every 3 weeks, next chemotherapy is in 3 days. Patient states that today she developed a cough, she felt more short of breath and she is here for evaluation. Patient does states she is been under a lot of stress, she has been around a lot of family that is ill. Patient is concerned that she might of caught something. She denies being on any recent biotics, she does take steroids before her chemotherapy. Patient is here for evaluation. PFS <LEOLA Garrido - Last Filed: 05/23/23 22:04> [facility] Medical History (Updated 05/21/23 @ 00:01 by Eriberto Saldivar) Adenocarcinoma of lung Anxiety Asthma-COPD overlap syndrome BMI 23.0-23.9, adult Cancer COPD (chronic obstructive pulmonary disease) Dyspnea on effort Fatigue Former smoker History of echocardiogram History of lung cancer History of stress test Kidney disease Lung mass Mass of right lung Non-smoker Postnasal drip Shortness of breath on exertion Standardized adult depression screening tool completed Wears dentures Wears glasses Home Medications cholecalciferol (vitamin D3) 250 mcg (10,000 unit) capsule 250 mcg PO DAILY supplement 08/05/22 [History Last Taken 05/10/23] guaifenesin 1,200 mg tablet, extended release 12 hr (Mucinex) 1,200 mg PO PRN congestion 08/05/22 [History Last Taken Unknown] lorazepam 0.5 mg tablet (Ativan) 0.5 mg PO BID PRN Anxiety 08/05/22 [History Last Taken 08/22/22 08:30] mecobalamin (vitamin B12) 2,500 mcg chewable tablet 2,500 mcg PO DAILY supplement 08/05/22 [History Last Taken 05/10/23] vitamin B complex (B Complex-Vitamin B12 tablet) 1 tab PO DAILY supplement 08/05/22 [History Last Taken 05/10/23] Nebulizer machine #1 ea 08/29/22 [Rx Last Taken Unknown] albuterol sulfate 2.5 mg/3 mL (0.083 %) solution for nebulization 2.5 mg (3 mL) inhalation Q4H PRN Sob &/Or Wheezing #180 mL 08/29/22 [Rx Last Taken Unknown] albuterol sulfate 90 mcg/actuation aerosol inhaler (Ventolin HFA) 2 puff inhalation Q4H PRN shortness of breath or wheezing #18 grams 08/29/22 [Rx Last Taken Unknown] fluticasone fur. 200 mcg-umeclid 62.5 mcg-vilant 25 mcg inhalat.powder (Trelegy Ellipta) 1 inh inhalation DAILY breathing #3 ea 11/17/22 [Rx Last Taken 05/11/23] alprazolam 0.5 mg tablet 0.5 mg PO BID PRN anxiety 05/11/23 [History Last Taken Unknown] Allergy/AdvReac Type Severity Reaction Status Date / Time No Known Allergies Allergy Verified 05/23/23 20:15 Family History Father Asthma Son Asthma Mother Breast cancer Uncle Diabetes Type 1 Surgical History H/O tubal ligation Hx of tonsillectomy Social History Smoking Status: Former smoker quit date: 03/23/22 Tobacco: How many years used: 50 how long ago did patient quit smoking: march 2022 alcohol intake: never substance use type: does not use caffeine: Yes Type: coffee Number of servings: 2 ROS <LEOLA Garrido - Last Filed: 05/23/23 22:04> ROS ED ROS Narrative Constitutional: Negative for fever, chills, weight loss, weakness Eyes: Negative for vision loss, vision change, double vision ENT: Negative for any sore throat, ear pain, congestion Cardiovascular: Negative for any chest pain, tightness, palpitations Respiratory: Negative for any sputum production, hemoptysis,orthopnea. Positive for cough, dyspnea, dyspnea on exertion Gastrointestinal: Negative for any abdominal pain, nausea, vomiting, diarrhea, constipation, blood in stool, blood in vomit : Negative for any urinary frequency, dysuria, retention, blood in urine Muscle skeletal: Negative for any neck pain, back pain Neurological: Negative for any headache, syncope, dizziness Skin: Negative for any rashes, itching, abrasions, lacerations Psychiatric: Negative for any depression, anxiety, stress, suicidal ideation, homicidal ideation Hematologic: Negative for any excessive bruising, easy bleeding EXAM <LEOLA Garrido - Last Filed: 05/23/23 22:04> Physical Exam Narrative Exam Narrative: Vital signs reviewed. Patient appears to be in no obvious distress. HEET: Head normocephalic atraumatic, TMs clear bilaterally. Posterior pharynx is clear, moist mucous membranes. Nares clear bilaterally. Neck: Supple with no lymphadenopathy or tenderness. No signs of meningismus. Cardiac: Regular rate and rhythm no murmurs gallops or rubs, equal peripheral pulses bilaterally. Respiratory: Diminished lung sounds in the bases, slight expiratory wheeze to the right upper lobe. No chest tenderness. Abdomen: Soft, nontender, nondistended. No abdominal bruit or pulsatile masses. No hepatosplenomegaly Extremities: No peripheral edema, no signs of gross trauma or deformity. Active full range of motion of all extremities. Neuro: Cranial nerves II through XII intact, no focal neurological deficits. Skin: Clean dry and intact with no rash, purpura, petechiae, vesicles or pustules. Backs/flank: No CVA tenderness, no midline spinal tenderness, no deformity. Psych: Normal mood and affect. No SI, HI or acute psychosis. Const Vital Signs: 05/23/23 20:06 05/23/23 21:28 05/23/23 21:30 Temperature 99.0 F 98.8 F Temperature Source Temporal Oral Pulse Rate 113 H 65 Respiratory Rate 16 16 Respiratory Effort Normal Respiratory Depth Normal Respiratory Pattern Normal Blood Pressure 112/73 116/69 Blood Pressure Mean 86 84 Pulse Ox 93 95 Oxygen Delivery Method Room Air Room Air Room Air Oxygen Flow Rate (L/min) 05/23/23 21:44 05/23/23 23:24 Temperature 98.4 F Temperature Source Oral Pulse Rate 102 H 102 H Respiratory Rate 20 H 24 H Respiratory Effort Respiratory Depth Respiratory Pattern Normal Blood Pressure 117/66 Blood Pressure Mean 83 Pulse Ox 98 Oxygen Delivery Method Nasal Cannula Oxygen Flow Rate (L/min) 2 <Dr. Pete Lanza DO - Last Filed: 05/23/23 23:40> Physical Exam Const Vital Signs: 05/23/23 20:06 05/23/23 21:28 05/23/23 21:30 Temperature 99.0 F 98.8 F Temperature Source Temporal Oral Pulse Rate 113 H 65 Respiratory Rate 16 16 Respiratory Effort Normal Respiratory Depth Normal Respiratory Pattern Normal Blood Pressure 112/73 116/69 Blood Pressure Mean 86 84 Pulse Ox 93 95 Oxygen Delivery Method Room Air Room Air Room Air Oxygen Flow Rate (L/min) 05/23/23 21:44 05/23/23 23:24 Temperature 98.4 F Temperature Source Oral Pulse Rate 102 H 102 H Respiratory Rate 20 H 24 H Respiratory Effort Respiratory Depth Respiratory Pattern Normal Blood Pressure 117/66 Blood Pressure Mean 83 Pulse Ox 98 Oxygen Delivery Method Nasal Cannula Oxygen Flow Rate (L/min) 2 MDM <LEOLA Garrido - Last Filed: 05/23/23 22:04> MDM Lab Data Labs: Laboratory Results - last 24 hr 05/23/23 05/23/23 05/23/23 21:45 21:46 22:30 WBC 20.7 H RBC 3.03 L Hgb 10.3 L Hct 30.7 L MCV 101.3 H MCH 34.0 H MCHC 33.6 RDW Std Deviation 51.8 H RDW Coeff of Francie 13.9 Plt Count 451 H MPV 8.0 Immature Gran % (Auto) 1.100 H Neut % (Auto) 79.4 H Lymph % (Auto) 4.2 L Merrick % (Auto) 15.0 H Eos % (Auto) 0.0 Baso % (Auto) 0.3 Absolute Neuts (auto) 16.4 H Absolute Lymphs (auto) 0.87 Nucleated RBC % 0 Differential Comment SCANNED Diff Path Review May foll Sodium 131 L Potassium 3.7 Chloride 98 Carbon Dioxide 26.0 Anion Gap 7 BUN 10 Creatinine 0.80 Est GFR (MDRD) Af Amer 91 Est GFR (MDRD) Non-Af 75 BUN/Creatinine Ratio 12.5 Glucose 146 H Lactic Acid 1.5 Calcium 9.0 Troponin I High Sens 8 Urine Color Straw Urine Clarity Clear Urine pH 5.0 Ur Specific [place] 1.010 Urine Protein 15 H Urine Glucose (UA) Normal Urine Ketones 5 H Urine Occult Blood 10 H Urine Nitrite Negative Urine Bilirubin Negative Urine Urobilinogen Normal Ur Leukocyte Esterase Negative Urine RBC 0-5 SEEN Urine WBC 0 SEEN Ur Squamous Epith Cells 0-5 SEEN Urine Bacteria 0 SEEN Urine Mucus 0 SEEN Radiography Diagnostic Testing: Clinical Impression(s) from Imaging Studies Chest X-Ray 05/23/23 22:10 IMPRESSION: Left basilar opacity. Developing pneumonia not excluded. Presumably chronic changes at the right perihilar region. Electronically Signed: Cristopher Walker MD at 22:43 EST , Chest CTA 05/23/23 22:45 IMPRESSION: No pulmonary embolism. Bilateral lower lung bronchial thickening/debris. There are multifocal patchy opacities at the lower lungs which are new. Findings may reflect aspiration and/or bronchopneumonia. Chronic changes in the right perihilar soft tissues with improvement compared to PET/CT September 16, 2022. Given the multifocal opacities, follow up suggested. Electronically Signed: Cristopher Walker MD at 23:21 EST , Treatment and Re-Evaluation :: Differential diagnosis includes however is not limited to: COPD exacerbation, community-acquired pneumonia, worsening lung cancer, pulmonary embolus, viral-like illness such as influenza or COVID-19. Patient appears to be in no obvious distress, patient is in slight tripod position however she is breathing normal. Patient received a cardiac workup including a troponin. Two-view chest x-ray will be obtained. Basic laboratory values will be obtained, patient received breathing treatments, IV steroids. Patient will be reevaluated. <Dr. Pete Lanza, DO - Last Filed: 05/23/23 23:40> [facility] Narrative Medical decision making narrative: Differential diagnosis includes however is not limited to: COPD exacerbation, community-acquired pneumonia, worsening lung cancer, pulmonary embolus, viral-like illness such as influenza or COVID-19. Patient appears to be in no obvious distress, patient is in slight tripod position however she is breathing normal. Patient received a cardiac workup including a troponin. Two-view chest x-ray will be obtained. Basic laboratory values will be obtained, patient received breathing treatments, IV steroids. Patient will be reevaluated. This patient was seen with a PA/[employer] CH[employer]ER Individually assessed they patient including history and physical. I have reviewed everything on the chart that is available and agree with the documentation provided by the PA/[employer] CH[employer]ER including discussion about the assessment, treatment plan, discussion, and return precautions. Differential as above. Patient well-appearing with normal vital signs except for some tachycardia. CBC shows leukocytosis of 20.7. Hemoglobin 10.3 and is stable. Renal function and electrolytes appear normal. Lactic acid 1.5. High-sensitivity opponent is 8. EKG on my interpretation shows a sinus tachycardia at 108 bpm without sign of ischemic change or ectopy. Chest x-ray my interpretation shows a left lower lobe infiltrate. Given patient history of lung cancer and tachycardia as well as shortness of breath and hypoxia CTA of the chest was obtained to rule out pulmonary embolism. This shows bilateral infiltrates in the lung bases. Patient recently admitted within the last 90 days so she will be started on vancomycin and Zosyn. She is requiring oxygen and states she does not usually have to wear oxygen at home. Patient was given breathing treatments for wheezing and she has a history of COPD. He was also given Solu-Medrol. Patient will be admitted for further care. Impression: 1. History of lung cancer 2. Leukocytosis 3. Hypoxic respiratory failure 4. Bilateral lower lobe pneumonia Lab Data Labs: Laboratory Results - last 24 hr 05/23/23 05/23/23 05/23/23 21:45 21:46 22:30 WBC 20.7 H RBC 3.03 L Hgb 10.3 L Hct 30.7 L MCV 101.3 H MCH 34.0 H MCHC 33.6 RDW Std Deviation 51.8 H RDW Coeff of Francie 13.9 Plt Count 451 H MPV 8.0 Immature Gran % (Auto) 1.100 H Neut % (Auto) 79.4 H Lymph % (Auto) 4.2 L Merrick % (Auto) 15.0 H Eos % (Auto) 0.0 Baso % (Auto) 0.3 Absolute Neuts (auto) 16.4 H Absolute Lymphs (auto) 0.87 Nucleated RBC % 0 Differential Comment SCANNED Diff Path Review May foll Sodium 131 L Potassium 3.7 Chloride 98 Carbon Dioxide 26.0 Anion Gap 7 BUN 10 Creatinine 0.80 Est GFR (MDRD) Af Amer 91 Est GFR (MDRD) Non-Af 75 BUN/Creatinine Ratio 12.5 Glucose 146 H Lactic Acid 1.5 Calcium 9.0 Troponin I High Sens 8 Urine Color Straw Urine Clarity Clear Urine pH 5.0 Ur Specific [place] 1.010 Urine Protein 15 H Urine Glucose (UA) Normal Urine Ketones 5 H Urine Occult Blood 10 H Urine Nitrite Negative Urine Bilirubin Negative Urine Urobilinogen Normal Ur Leukocyte Esterase Negative Urine RBC 0-5 SEEN Urine WBC 0 SEEN Ur Squamous Epith Cells 0-5 SEEN Urine Bacteria 0 SEEN Urine Mucus 0 SEEN Radiography Diagnostic Testing: Clinical Impression(s) from Imaging Studies Chest X-Ray 05/23/23 22:10 IMPRESSION: Left basilar opacity. Developing pneumonia not excluded. Presumably chronic changes at the right perihilar region. Electronically Signed: Cristopher Walker MD at 22:43 EST , Chest CTA 05/23/23 22:45 IMPRESSION: No pulmonary embolism. Bilateral lower lung bronchial thickening/debris. There are multifocal patchy opacities at the lower lungs which are new. Findings may reflect aspiration and/or bronchopneumonia. Chronic changes in the right perihilar soft tissues with improvement compared to PET/CT September 16, 2022. Given the multifocal opacities, follow up suggested. Electronically Signed: Cristopher Walker MD at 23:21 EST , Discharge Plan Triage Chief Complaint: Shortness of Breath ED Midlevel Provider: Nikolas Butt ED Provider: ePte Lanza Dx/Rx/DC Orders Instructions: ED COPD Flare Prescriptions: No Action guaifenesin [Mucinex] 1,200 mg tablet extended release 12hr 1,200 mg PO PRN lorazepam [Ativan] 0.5 mg tablet 0.5 mg PO BID PRN (Reason: Anxiety) cholecalciferol (vitamin D3) 250 mcg (10,000 unit) capsule 250 mcg PO DAILY vitamin B complex [B Complex-Vitamin B12] Tablet 1 tab PO DAILY mecobalamin (vitamin B12) 2,500 mcg tablet,chewable 2,500 mcg PO DAILY albuterol sulfate 2.5 mg /3 mL (0.083 %) solution for nebulization 2.5 mg inhalation Q4H PRN (Reason: Sob &/Or Wheezing) Qty: 180 3RF albuterol sulfate [Ventolin HFA] 90 mcg/actuation HFA aerosol inhaler 2 puff inhalation Q4H PRN (Reason: shortness of breath or wheezing) Qty: 18 6RF (DME) Nebulizer machine See Rx Instructions .ROUTE .MEDSUPPLY Qty: 1 0RF Rx Instructions: As directed alprazolam 0.5 mg tablet 0.5 mg PO BID PRN Trelegy Ellipta 200-62.5-25 mcg blister with device 1 inh inhalation DAILY Qty: 3 3RF Primary Care Provider: Feroz Miranda Referrals: Feroz Miranda, DO [Primary Care Provider] -
[2023-05-23 21:44] VITALS: PULSE 102; RESP 20
[2023-05-23] MEDS: Ipratropium/Albuterol Sulfate 3 ML AMPUL.NEB INHALATION (21:44)
[2023-05-23] MEDS: MethylPREDNISolone 125 MG/2 ML Vial 60 MG IV (21:52)
[2023-05-23 21:56] LABS: Absolute Lymphocyte Count 0.87 X10^3/uL (0.83-4.51); Absolute Neutrophil Count 16.4 X10^3/uL (2.0-7.7); Basophil# 0.06 X10^3/uL; Basophil% 0.3 % (0-1); Hematocrit 30.7 % (37-47); Hemoglobin 10.3 g/dL (12.0-15.0); Lymphocyte # 0.87 X10^3/ul (0.83-4.51); Lymphocyte % 4.2 % (19-41); Mean Corp Hgb Conc 33.6 g/dL (32-36); Mean Corpuscular Volume 101.3 fL (81-99); Monocyte# 3.11 X10^3/uL; NRBC Flagged by Analyzer 0 % (0-5); Neutrophil # 16.42 X10^3/uL (2.7-7.7); Neutrophil % 79.4 % (47-70); POSITIVE DIFFERENTIAL YES; Platelet Count 451 K/mm3 (150-450); RBC Distribution Width CV 13.9 % (11.6-14.6); RBC Distribution Width SD 51.8 fl (35.1-43.9); Red Blood Count 3.03 M/mm3 (4.2-5.4); White Blood Count 20.7 K/mm3 (4.4-11.0)
[2023-05-23 22:01] LABS: Differential Indicated SCAN CRITERIA MET
--- NOTE | 2023-05-23 22:10 | RAD_ITS ---
INDICATION: cough EXAMINATION/TECHNIQUE: X-RAY - XR Chest 2 Views COMPARISON: Prior CT abdomen April 2023. FINDINGS: Emphysematous change. Cardiac silhouette normal in size. There is a right-sided perihilar opacity which may be chronic. Mid to upper lungs are relatively clear above the level of the zoran. There is no pleural effusion. Some increased markings are noted at the left base compared to the right. Right-sided rib changes. No acute spinal pathology. Degenerative changes of the spine are present. RAD/Chest PA and Lateral IMPRESSION: Left basilar opacity. Developing pneumonia not excluded. Presumably chronic changes at the right perihilar region. Electronically Signed: Cristopher Walker MD at 22:43 EST ,
[2023-05-23 22:14] LABS: Anion Gap 7 (5-15); BUN 10 mg/dL (7-18); BUN/Creat Ratio 12.5 RATIO (10-20); Chloride 98 mmol/L (98-107); EST Glomerular Filtration Rate 75 mL/min (>60); Est Glom Filt Rate - Afr Amer 91 mL/min (>60); Glucose 146 mg/dL (74-106); Potassium 3.7 mmol/L (3.5-5.1); Sodium Level 131 mmol/L (136-145); Troponin-I HS 8 pg/mL (3.0-54.0)
[2023-05-23 22:22] LABS: Differential Comment SCANNED
--- NOTE | 2023-05-23 22:45 | CT_ITS ---
STUDY: CTA CHEST REASON FOR EXAM: Female, 72 years old. PE TECHNIQUE: The examination was performed with the intravenous administration of IV 100mL [id number]. Post-processing of the angiographic images was performed, with multiplanar reformation and maximum intensity projection reconstruction. Individualized dose optimization techniques were used for this CT. COMPARISON: CT PET September 16, 2022 FINDINGS: Homogeneous thyroid gland with probable right lobe enlargement. No pathologic axillary adenopathy. There is atherosclerotic aortic disease. No pulmonary arterial filling defect is appreciated. The right pulmonary artery does extend through abnormal soft tissue at the right hilum where there is no disease. There is no pericardial effusion. No significant pleural effusion. Visualized portions of the upper abdomen demonstrate no acute abnormality. This patient has multifocal bronchial thickening in the lower lungs as well as some bronchial debris. Patchy airspace opacity is seen at the lower lungs right greater than left. Emphysematous change. Slight patchy upper lung opacities are present. No focal aggressive osseous lesion is present. CT/CTA Chest W/WO Contrast IMPRESSION: No pulmonary embolism. Bilateral lower lung bronchial thickening/debris. There are multifocal patchy opacities at the lower lungs which are new. Findings may reflect aspiration and/or bronchopneumonia. Chronic changes in the right perihilar soft tissues with improvement compared to PET/CT September 16, 2022. Given the multifocal opacities, follow up suggested. Electronically Signed: Cristopher Walker MD at 23:21 EST ,
[2023-05-23 23:00] LABS: Lactic Acid 1.5 mmol/L (0.4-1.9)
[2023-05-23 23:24] VITALS: BP 117/66; PULSE 102; RESP 24; TEMP 36.9; O2SAT 98; BMI 26.6
[2023-05-23 23:26] LABS: Bacteria 0 SEEN /hpf (None Seen); Color, Urine Straw (Yellow); Glucose, Dipstick Normal (Normal); Ketone-Dipstick 5 mg/dl (Negative); Leukocyte Esterase-Dipstick Negative /ul (Negative); Mucous, Urine 0 SEEN /hpf (<or=2+); Nitrite-Dipstick Negative (Negative); Occult Blood-Urine 10 /ul (Negative); Protein-Dipstick 15 mg/dl (Negative); Urine Bilirubin Dipstick Negative (Negative); Urine Clarity Clear (Clear); Urine Urobilinogen Normal (Normal); White Blood Cells 0 SEEN /hpf (0-5)
[2023-05-23 23:34] LABS: Red Blood Cells-Urine 0-5 SEEN /hpf (0-5); Squamous Epithelial Cells - UA 0-5 SEEN /hpf (5-10)
[2023-05-24] VITALS (9 sets, daily range): BP systolic 113–140; BP diastolic 56–91; PULSE 90–112; RESP 15–20; TEMP 36.3–36.9; O2SAT 92–100; BMI 23.6; BMI 23.8
--- NOTE | 2023-05-24 00:01 | PCM.HP.STD ---
[facility] - General General Date of Admission: 05/24/23 Date of Service: 05/24/23 Chief Complaint: SOB and Wheezing. 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 [address] Shah of oncology, generalized anxiety, OA and recent admission here from May 11, 2023 to May 13, 2023 for workup of a bladder mass with hematuria who presents to [facility] ER complaining of SOB and wheezing. Ms. Jean reports her symptoms began earlier today when she developed a cough and GONZALEZ that progressed to SOB at rest. She also admits to wheezing along with increased life-stress with multiple close family members who are also ill at this time with the additional concern that she may have caught something from them. She denies being on recent antibiotics but she does admit to taking steroids before her chemo with her next dose due in 3 days. She denies related fever, chills, nausea, vomiting, diarrhea or constipation. In the ER she was diagnosed with AE COPD with CXR positive for Multifocal Pneumonia (likely nosocomial after recent admission) with Leukocytosis of 20.7 present on admission complicated by clinical evidence of Acute Respiratory Insufficiency and she was then admitted to the general medical floor for ongoing care for a stay that is expected to be greater than 48 hours. [facility] Medical History Adenocarcinoma of lung Anxiety Asthma-COPD overlap syndrome BMI 23.0-23.9, adult Cancer COPD (chronic obstructive pulmonary disease) Dyspnea on effort Fatigue Former smoker History of echocardiogram History of lung cancer History of stress test Kidney disease Lung mass Mass of right lung Non-smoker Postnasal drip Shortness of breath on exertion Standardized adult depression screening tool completed Wears dentures Wears glasses Home Medications cholecalciferol (vitamin D3) 250 mcg (10,000 unit) capsule 250 mcg PO DAILY supplement 08/05/22 [History Last Taken 05/10/23] guaifenesin 1,200 mg tablet, extended release 12 hr (Mucinex) 1,200 mg PO PRN congestion 08/05/22 [History Last Taken Unknown] lorazepam 0.5 mg tablet (Ativan) 0.5 mg PO BID PRN Anxiety 08/05/22 [History Last Taken 08/22/22 08:30] mecobalamin (vitamin B12) 2,500 mcg chewable tablet 2,500 mcg PO DAILY supplement 08/05/22 [History Last Taken 05/10/23] vitamin B complex (B Complex-Vitamin B12 tablet) 1 tab PO DAILY supplement 08/05/22 [History Last Taken 05/10/23] Nebulizer machine #1 ea 08/29/22 [Rx Last Taken Unknown] albuterol sulfate 2.5 mg/3 mL (0.083 %) solution for nebulization 2.5 mg (3 mL) inhalation Q4H PRN Sob &/Or Wheezing #180 mL 08/29/22 [Rx Last Taken Unknown] albuterol sulfate 90 mcg/actuation aerosol inhaler (Ventolin HFA) 2 puff inhalation Q4H PRN shortness of breath or wheezing #18 grams 08/29/22 [Rx Last Taken Unknown] fluticasone fur. 200 mcg-umeclid 62.5 mcg-vilant 25 mcg inhalat.powder (Trelegy Ellipta) 1 inh inhalation DAILY breathing #3 ea 11/17/22 [Rx Last Taken 05/11/23] alprazolam 0.5 mg tablet 0.5 mg PO BID PRN anxiety 05/11/23 [History Last Taken Unknown] Allergy/AdvReac Type Severity Reaction Status Date / Time No Known Allergies Allergy Verified 05/23/23 20:15 Family History Father Asthma Son Asthma Mother Breast cancer Uncle Diabetes Type 1 Surgical History H/O tubal ligation Hx of tonsillectomy Social History Smoking Status: Former smoker quit date: 03/23/22 Tobacco: How many years used: 50 how long ago did patient quit smoking: march 2022 alcohol intake: never substance use type: does not use caffeine: Yes Type: coffee Number of servings: 2 ROS ROS Narrative Review of systems: Constitutional: Patient denies fever or chills. Eyes: Patient denies changes in vision or discharge from eyes. ENT: Patient denies runny nose, sore throat or ear pain. CV: Patient denies chest pain or palpitations. Resp: Patient admits to nonproductive cough with wheezing. GI: Patient denies abdominal pain, nausea or vomiting. : Patient denies dysuria or urinary frequency. MSK: Patient denies arthralgias or myalgias. Neuro: Patient denies headache, dizziness or focal neurologic deficits. Skin: Patient denies rash. Psych: Patient denies uncontrolled depression or anxiety. Hematology: Patient denies easy bleeding or easy bruisability. Endocrinologic: Patient denies polyuria, polydipsia or polyphagia. 14 point ROS otherwise negative except for positives noted above in BPI. Vital Signs Vital Signs Vital Signs: 05/23/23 20:06 05/23/23 21:28 05/23/23 21:30 Temperature 99.0 F 98.8 F Temperature Source Temporal Oral Pulse Rate 113 H 65 Respiratory Rate 16 16 Respiratory Effort Normal Respiratory Depth Normal Respiratory Pattern Normal Blood Pressure 112/73 116/69 Blood Pressure Mean 86 84 Pulse Ox 93 95 Oxygen Delivery Method Room Air Room Air Room Air Oxygen Flow Rate (L/min) 05/23/23 21:44 05/23/23 23:24 Temperature 98.4 F Temperature Source Oral Pulse Rate 102 H 102 H Respiratory Rate 20 H 24 H Respiratory Effort Respiratory Depth Respiratory Pattern Normal Blood Pressure 117/66 Blood Pressure Mean 83 Pulse Ox 98 Oxygen Delivery Method Nasal Cannula Oxygen Flow Rate (L/min) 2 Weight Weight: 145 lb 11.609 oz Body Mass Index (BMI) 26.6 Physical Exam Const alert, oriented x3 and average body habitus Constitutional Narrative: Labored respirations with audible wheezing and cough noted. General Appearance: cooperative HEENT normocephalic, head/scalp atraumatic, hearing grossly normal bilaterally and moist oral mucous membranes Eyes PERRL and EOMs intact bilaterally Neck no lymphadenopathy and supple Resp Resp Narrative: Diminished breath sounds throughout with scattered wheezes. Auscultation: wheezes Cardio regular rate and regular rhythm GI normal to inspection, nondistended, normoactive bowel sounds, soft to palpation, non-tender and non-distended Extremity normal to inspection and full ROM Skin Skin Narrative: Patient has no evidence of rash. Neuro oriented x3, CN's II-XII intact bilaterally, moves all extremities and no focal motor deficits Sensorium / Orientation: awake, alert, oriented to person, oriented to place and oriented to time Speech: speech normal Motor Exam: strength 5/5 throughout Psych affect normal Results Medical Records Data Attestation: I reviewed the patient's medical records Lab / Micro Data Attestation: I reviewed the patient's lab results. 05/23/23 21:45 05/23/23 21:45 Labs: Laboratory Results - last 24 hr 05/23/23 21:45: WBC 20.7 H, RBC 3.03 L, Hgb 10.3 L, Hct 30.7 L, MCV 101.3 H, MCH 34.0 H, MCHC 33.6, RDW Std Deviation 51.8 H, RDW Coeff of Francie 13.9, Plt Count 451 H, MPV 8.0, Immature Gran % (Auto) 1.100 H, Neut % (Auto) 79.4 H, Lymph % (Auto) 4.2 L, Dare % (Auto) 15.0 H, Eos % (Auto) 0.0, Baso % (Auto) 0.3, Absolute Neuts (auto) 16.4 H, Absolute Lymphs (auto) 0.87, Nucleated RBC % 0, Differential Comment SCANNED, Diff Path Review July, Sodium 131 L, Potassium 3.7, Chloride 98, Carbon Dioxide 26.0, Anion Gap 7, BUN 10, Creatinine 0.80, Est GFR (MDRD) Af Amer 91, Est GFR (MDRD) Non-Af 75, BUN/Creatinine Ratio 12.5, Glucose 146 H, Calcium 9.0, Troponin I High Sens 8 05/23/23 21:46: Urine Color Straw, Urine Clarity Clear, Urine pH 5.0, Ur Specific Thompson 1.010, Urine Protein 15 H, Urine Glucose (UA) Normal, Urine Ketones 5 H, Urine Occult Blood 10 H, Urine Nitrite Negative, Urine Bilirubin Negative, Urine Urobilinogen Normal, Ur Leukocyte Esterase Negative, Urine RBC 0-5 SEEN, Urine WBC 0 SEEN, Ur Squamous Epith Cells 0-5 SEEN, Urine Bacteria 0 SEEN, Urine Mucus 0 SEEN 05/23/23 22:30: Lactic Acid 1.5 Imaging Radiology Impression Chest X-Ray 05/23/23 22:10 IMPRESSION: Left basilar opacity. Developing pneumonia not excluded. Presumably chronic changes at the right perihilar region. Electronically Signed: Cristopher Walker MD at 22:43 EST , Chest CTA 05/23/23 22:45 IMPRESSION: No pulmonary embolism. Bilateral lower lung bronchial thickening/debris. There are multifocal patchy opacities at the lower lungs which are new. Findings may reflect aspiration and/or bronchopneumonia. Chronic changes in the right perihilar soft tissues with improvement compared to PET/CT September 16, 2022. Given the multifocal opacities, follow up suggested. Electronically Signed: Cristopher Walker MD at 23:21 EST , Assessment & Plan Assessment/Plan (1) Multifocal pneumonia: (2) COPD with exacerbation: (3) Respiratory insufficiency: PLAN: Plan 1. Multifocal Pneumonia (likely nosocomial after recent admission) with Leukocytosis of 20.7 present on admission - Admit to general medical floor. Continue broad-spectrum antibiotics with IV Zosyn and IV Vancomycin and await culture and sensitivity data. Give Tylenol prn for [id number] (level 1-5/10) pain or fever. Give IV Morphine prn for severe (level 6-10/10) pain. 2. AE COPD complicating #1 - Continue IV Solu Medrol and add IV antibiotics plus scheduled and prn nebulizers. 3. Acute Hypoxic Respiratory Insufficiency due to#1 & #2 - Wean supplemental oxygen as tolerated. 4. 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 [address] Shah of oncology compounding #1 - #3 - Continue supportive care. 5. Recent admission here from May 11, 2023 to May 13, 2023 for workup of a bladder mass with hematuria - Noted. 6. Generalized anxiety - Continue prn Alprazolam. 7. OA - Give Tylenol prn. 8. DVT prophylaxis - Lovenox 40 mg sq daily plus SCD's. Total time: Approximately 55 minutes. Charges/Coding Visit Charges Inpatient E&M: 93188 Init Hosp L2
[2023-05-24] MEDS: Piperacil/Tazobactam 3.375 GM in 0.9% Normal Saline (50mL MB+) 50 ML IV ×4 (00:09→22:03)
[2023-05-24] MEDS: Vancomycin HCl 1,750 MG in 0.9% Normal Saline (500mL Bag) 500 ML 250 MG IV (00:47)
[2023-05-24] MEDS: 0.9% Normal Saline (1000mL) 1,000 ML 70 ML IV (03:15)
--- NOTE | 2023-05-24 03:26 | PCM.RX.CS ---
Consult Antibiotic Management Pharmacy has been consulted to manage selected antibiotic: Vancomycin Type of Intervention Type of Consult: New start Suspected Infection Suspected Infection: Pneumonia Labs Labs: Sodium 131 mmol/L (136-145) L 05/23/23 21:45 Potassium 3.7 mmol/L (3.5-5.1) 05/23/23 21:45 Chloride 98 mmol/L (98-107) 05/23/23 21:45 Carbon Dioxide 26.0 mmol/L (21.0-32.0) 05/23/23 21:45 Anion Gap 7 (5-15) 05/23/23 21:45 BUN 10 mg/dL (7-18) 05/23/23 21:45 Creatinine 0.80 mg/dL (0.55-1.02) 05/23/23 21:45 Est GFR (MDRD) Af Amer 91 mL/min (>60) 05/23/23 21:45 Est GFR (MDRD) Non-Af 75 mL/min (>60) 05/23/23 21:45 BUN/Creatinine Ratio 12.5 RATIO (10-20) 05/23/23 21:45 Glucose 146 mg/dL (74-106) H 05/23/23 21:45 Microbiology Microbiology: Microbiology 05/24/23 23:20 Urine Catheter - Catheter Legionella Antigen - Final 05/24/23 23:20 Urine Catheter - Catheter Streptococcus pneumoniae Antigen (M - Final Dosing Weight Weight used for dosin.5 kg Estimated Creatinine Clearance Estimated Creatinine Clearance: 57 Goal Trough Goal Trough: 15-20 mcg/mL Pharmacy Plan for Drug Dosing Pharmacy Plan for Drug Dosing: Pharmacy Service will continue to monitor and adjust dosing as required. Follow-Up Labs Follow-Up Labs: Trough: Vancomycin Date/Time Labs Ordered Labs to be done on [date and time ordered]: 05/25/23 @2464
[2023-05-24 07:01] LABS: Absolute Lymphocyte Count 0.35 X10^3/uL (0.83-4.51); Absolute Neutrophil Count 15.9 X10^3/uL (2.0-7.7); Basophil# 0.04 X10^3/uL; Basophil% 0.2 % (0-1); Eosinophil# 0.43 X10^3/uL; Eosinophils% 2.5 % (0-5); Hematocrit 28.6 % (37-47); Hemoglobin 9.2 g/dL (12.0-15.0); Lymphocyte # 0.35 X10^3/ul (0.83-4.51); Mean Corp Hgb Conc 32.2 g/dL (32-36); Mean Corpuscular Hgb 32.6 pg (27.0-32.0); Mean Corpuscular Volume 101.4 fL (81-99); Mean Platelet Vol. 8.2 fl (6.2-12.0); Monocyte# 0.54 X10^3/uL; Monocyte% 3.1 % (0-10); NRBC Flagged by Analyzer 0 % (0-5); Neutrophil # 15.87 X10^3/uL (2.7-7.7); Neutrophil % 91.3 % (47-70); POSITIVE DIFFERENTIAL YES; Platelet Count 414 K/mm3 (150-450); RBC Distribution Width CV 13.7 % (11.6-14.6); RBC Distribution Width SD 50.8 fl (35.1-43.9); Red Blood Count 2.82 M/mm3 (4.2-5.4); White Blood Count 17.4 K/mm3 (4.4-11.0)
[2023-05-24] MEDS: Ipratropium/Albuterol Sulfate 3 ML AMPUL.NEB INHALATION ×2 (07:16→14:22)
[2023-05-24 07:35] LABS: ALB/GLOB Ratio 0.5 RATIO (0.9-2.4); AST(SGOT) 21 U/L (15-37); Alanine Aminotransfer ALT/SGPT 26 U/L (13-56); Albumin, Serum 2.4 g/dL (3.2-5.0); Alkaline Phosphatase 89 U/L (45-117); Anion Gap 4 (5-15); BUN 9 mg/dL (7-18); BUN/Creat Ratio 13.2 RATIO (10-20); Calcium,Total 8.6 mg/dL (8.5-10.1); Chloride 107 mmol/L (98-107); Creatinine, Serum 0.68 mg/dL (0.55-1.02); EST Glomerular Filtration Rate 90 mL/min (>60); Est Glom Filt Rate - Afr Amer 109 mL/min (>60); Estimated Creatinine Clearance 50.27 ml/min; Globulin 4.5 g/dL (2.2-4.2); Glucose 191 mg/dL (74-106); Magnesium 2.7 mg/dL (1.6-2.6); Phosphorus 2.8 mg/dL (2.5-4.9); Potassium 4.2 mmol/L (3.5-5.1); Protein, Total 6.9 g/dL (6.4-8.2); Sodium Level 135 mmol/L (136-145); Thyroid Stim Hormone (TSH) 0.34 uIU/mL (0.358-3.74)
[2023-05-24] MEDS: MethylPREDNISolone 125 MG/2 ML Vial 60 MG IV ×2 (07:58→22:00)
[2023-05-24] MEDS: Cholecalciferol (Vit D3) 125 MCG CAPSULE (5,000 UNITS) 250 MCG PO (07:58)
[2023-05-24] MEDS: Pantoprazole Sodium 40 MG Tablet PO (07:58)
[2023-05-24] MEDS: Enoxaparin 40 MG/0.4 ML Syringe SC (07:59)
--- NOTE | 2023-05-24 08:09 | PN.HOSP_ITS ---
Reason for Visit Reason for Visit: Diagnoses Pneumonia, unspecified organism (05/24/23) Chronic obstructive pulmonary disease with (acute) exacerbation (05/24/23) Other abnormalities of breathing (05/24/23) Subjective Subjective Breathing okay at this time. Objective Data Objective Data Vital Signs: Vital Signs Temp Pulse Resp BP Pulse Ox O2 Del Method O2 Flow Rate 36.4 C L 100 20 H 140/91 H 95 Nasal Cannula 2 05/24/23 03:04 05/24/23 07:17 05/24/23 07:17 05/24/23 03:04 05/24/23 07:17 05/24/23 07:17 05/24/23 07:17 Oxygen Flow Rate (L/min) 2 Oxygen Delivery Method Nasal Cannula Weight: 58.7 kg Body Mass Index (BMI) 23.8 Intake & Output: Intake and Output for Last 24 Hours 05/22/23 05/23/23 05/24/23 23:59 23:59 23:59 Intake Total 685 / 685 Balance 685 / 685 Lab / Micro Data 05/24/23 06:55 05/24/23 06:55 Labs: Laboratory Results - last 24 hr 05/23/23 21:45: WBC 20.7 H, RBC 3.03 L, Hgb 10.3 L, Hct 30.7 L, MCV 101.3 H, MCH 34.0 H, MCHC 33.6, RDW Std Deviation 51.8 H, RDW Coeff of Francie 13.9, Plt Count 451 H, MPV 8.0, Immature Gran % (Auto) 1.100 H, Neut % (Auto) 79.4 H, Lymph % (Auto) 4.2 L, Harlan % (Auto) 15.0 H, Eos % (Auto) 0.0, Baso % (Auto) 0.3, Absolute Neuts (auto) 16.4 H, Absolute Lymphs (auto) 0.87, Nucleated RBC % 0, D ifferential Comment SCANNED, Diff Path Review July, Sodium 131 L, Potassium 3.7, Chloride 98, Carbon Dioxide 26.0, Anion Gap 7, BUN 10, Creatinine 0.80, Est GFR (MDRD) Af Amer 91, Est GFR (MDRD) Non-Af 75, BUN/Creatinine Ratio 12.5, Glucose 146 H, Calcium 9.0, Troponin I High Sens 8 05/23/23 21:46: Urine Color Straw, Urine Clarity Clear, Urine pH 5.0, Ur Specific Labelle 1.010, Urine Protein 15 H, Urine Glucose (UA) Normal, Urine Ketones 5 H, Urine Occult Blood 10 H, Urine Nitrite Negative, Urine Bilirubin Negative, Urine Urobilinogen Normal, Ur Leukocyte Esterase Negative, Urine RBC 0-5 SEEN, Urine WBC 0 SEEN, Ur Squamous Epith Cells 0-5 SEEN, Urine Bacteria 0 SEEN, Urine Mucus 0 SEEN 05/23/23 22:30: Lactic Acid 1.5 05/24/23 06:55: WBC 17.4 H, RBC 2.82 L, Hgb 9.2 L, Hct 28.6 L, MCV 101.4 H, MCH 32.6 H, MCHC 32.2, RDW Std Deviation 50.8 H, RDW Coeff of Francie 13.7, Plt Count 414, MPV 8.2, Immature Gran % (Auto) 0.900, Neut % (Auto) 91.3 H, Lymph % (Auto) 2.0 L, Harlan % (Auto) 3.1, Eos % (Auto) 2.5, Baso % (Auto) 0.2, Absolute Neuts (auto) 15.9 H, Absolute Lymphs (auto) 0.35 L, Nucleated RBC % 0, Sodium 135 L, Potassium 4.2, Chloride 107, Carbon Dioxide 24.0, Anion Gap 4 L, BUN 9, Creatinine 0.68, Estim Creat Clear Calc 50.27, Est GFR (MDRD) Af Amer 109, Est GFR (MDRD) Non-Af 90, BUN/Creatinine Ratio 13.2, Glucose 191 H, Calcium 8.6, Phosphorus 2.8, Magnesium 2.7 H, Total Bilirubin 0.30, AST 21, ALT 26, Alkaline Phosphatase 89, Total Protein 6.9, Albumin 2.4 L, Globulin 4.5 H, Albumin/Glob ulin Ratio 0.5 L, TSH 0.34 L Micro: Microbiology 05/24/23 23:20 Urine Catheter - Catheter Legionella Antigen - Final 05/24/23 23:20 Urine Catheter - Catheter Streptococcus pneumoniae Antigen (M - Final Radiography Diagnostic Testing: Radiology Impression Chest X-Ray 05/23/23 22:10 IMPRESSION: Left basilar opacity. Developing pneumonia not excluded. Presumably chronic changes at the right perihilar region. Electronically Signed: Cristopher Walker MD at 22:43 EST , Chest CTA 05/23/23 22:45 IMPRESSION: No pulmonary embolism. Bilateral lower lung bronchial thickening/debris. There are multifocal patchy opacities at the lower lungs which are new. Findings may reflect aspiration and/or bronchopneumonia. Chronic changes in the right perihilar soft tissues with improvement compared to PET/CT September 16, 2022. Given the multifocal opacities, follow up suggested. Electronically Signed: Cristopher Walker MD at 23:21 EST , Physical Exam Const alert and no apparent distress HEENT head/scalp atraumatic and moist oral mucous membranes Resp normal respiratory effort, no retractions and no use of accessory muscles Resp Narrative: Diminished bilaterally Cardio regular rate, regular rhythm, S1 normal heart sound and S2 normal heart sound GI normal to inspection, nondistended, normoactive bowel sounds, soft to palpation, non-tender and non-distended Neuro Sensorium / Orientation: awake and alert Assessment & Plan Assessment/Plan (1) Multifocal pneumonia: (2) COPD with exacerbation: (3) Respiratory insufficiency: PLAN: Plan Pneumonia * unclear type. diffuse, no consolidation. * Strep and legionella antigens, COVID 19, influenza, RSV are negative * Abx with pip/tazo and vancomycin. * Pep therapy AE COPD * 2/2 pneumonia * Methylpred and BDs. 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 [address] Shah of oncology compounding #1 - #3 - Continue supportive care. * Generalized anxiety - Continue prn Alprazolam. * OA - Give Tylenol prn. DVT prophylaxis - Lovenox 40 mg sq daily plus SCD's. Charges/Coding Visit Charges Inpatient E&M: 03977 Subs Hosp L2
[2023-05-24] MEDS: Vancomycin IV 500 MG/100 ML BAG 100 MG IV (13:09)
[2023-05-24] MEDS: ALPRAZolam 0.5 MG Tablet PO (22:03)
[2023-05-25] MEDS: Vancomycin IV 500 MG/100 ML BAG 100 MG IV (01:31)
[2023-05-25 01:59] VITALS: BP 122/71; PULSE 95; RESP 18; TEMP 36.9; O2SAT 95
[2023-05-25] MEDS: 0.9% Normal Saline (1000mL) 1,000 ML 70 ML IV ×2 (02:05→20:47)
[2023-05-25] MEDS: Piperacil/Tazobactam 3.375 GM in 0.9% Normal Saline (50mL MB+) 50 ML IV ×3 (05:45→20:48)
[2023-05-25 06:00] VITALS: BMI 23.8
[2023-05-25 06:29] LABS: Absolute Lymphocyte Count 0.56 X10^3/uL (0.83-4.51); Absolute Neutrophil Count 17.7 X10^3/uL (2.0-7.7); Basophil# 0.04 X10^3/uL; Basophil% 0.2 % (0-1); Hematocrit 30.6 % (37-47); Hemoglobin 9.9 g/dL (12.0-15.0); Lymphocyte # 0.56 X10^3/ul (0.83-4.51); Lymphocyte % 2.9 % (19-41); Mean Corp Hgb Conc 32.4 g/dL (32-36); Mean Corpuscular Hgb 32.7 pg (27.0-32.0); Mean Platelet Vol. 8.5 fl (6.2-12.0); Monocyte# 0.56 X10^3/uL; Monocyte% 2.9 % (0-10); NRBC Flagged by Analyzer 0 % (0-5); Neutrophil # 17.71 X10^3/uL (2.7-7.7); POSITIVE DIFFERENTIAL YES; Platelet Count 511 K/mm3 (150-450); RBC Distribution Width CV 13.8 % (11.6-14.6); RBC Distribution Width SD 50.7 fl (35.1-43.9); Red Blood Count 3.03 M/mm3 (4.2-5.4); White Blood Count 19.1 K/mm3 (4.4-11.0)
[2023-05-25 06:45] LABS: Anion Gap 4 (5-15); BUN 11 mg/dL (7-18); BUN/Creat Ratio 14.7 RATIO (10-20); Calcium,Total 9.4 mg/dL (8.5-10.1); Chloride 108 mmol/L (98-107); Creatinine, Serum 0.75 mg/dL (0.55-1.02); EST Glomerular Filtration Rate 81 mL/min (>60); Est Glom Filt Rate - Afr Amer 98 mL/min (>60); Estimated Creatinine Clearance 50.27 ml/min; Glucose 169 mg/dL (74-106); Potassium 4.1 mmol/L (3.5-5.1); Sodium Level 137 mmol/L (136-145)
[2023-05-25 06:58] VITALS: PULSE 90; RESP 16; O2SAT 98
[2023-05-25] MEDS: Ipratropium/Albuterol Sulfate 3 ML AMPUL.NEB INHALATION (06:58)
[2023-05-25 08:00] VITALS: BP 114/59; PULSE 105; RESP 16; TEMP 36.9; O2SAT 95
--- NOTE | 2023-05-25 08:29 | CPS ---
decreased NC to 1L
[2023-05-25] MEDS: ALPRAZolam 0.5 MG Tablet PO ×2 (08:33→20:53)
[2023-05-25] MEDS: MethylPREDNISolone 125 MG/2 ML Vial 60 MG IV ×2 (10:05→20:47)
[2023-05-25] MEDS: Enoxaparin 40 MG/0.4 ML Syringe SC (10:05)
[2023-05-25] MEDS: Pantoprazole Sodium 40 MG Tablet PO (10:05)
[2023-05-25] MEDS: Cholecalciferol (Vit D3) 125 MCG CAPSULE (5,000 UNITS) 250 MCG PO (10:06)
[2023-05-25] MEDS: Folic Acid 1 MG Tablet PO (10:09)
--- NOTE | 2023-05-25 10:56 | CASEMGMT ---
DEVANTE ALVARADO Readmission Note Previous Admission:05/11/23-05/13/23 Diagnosis:hematuria DC Disposition: Home Current Admission: Admitted 05/24/23 Current Diagnosis:AE COPD with multifocal pna Pt has a hx of lung cancer on immunotherapy and presented to [facility] ER after a bx of renal mass at [facility]. Pt was placed on CBI and urology c/s. Pt hematuria had resolved and was thought to be d/t her kidney bx. Pt did not require a blood transfusion and was dc'd home. Pt represented to [facility] ER for SOB and wheezing. Pt recently passed and she states she was around sick contacts. DEVANTE ALVARADO into pt room, pt with family visiting. Pt reports taking her meds as ordered since last hospital stay. Pt reports she has an appt scheduled with her pcp next week, she has seen her oncologist since last hospital stay and reports not needing to see urology. Pt currently on RA. Discussed local in network DME companies should pt need oxygen, pt states that if she would need this she will consult her friend Genoveva who is a nurse. She states she has a granddtr who is a nurse and multiple family members who can assist her at home. Pt denies any HHC needs at this time or any assistance at all. Noted pt board states SBA. DEVANTE ALVARADO to follow. DC Plan: Home, follow for oxygen. Fran LOW CM
--- NOTE | 2023-05-25 13:07 | PN.HOSP_ITS ---
Reason for Visit Reason for Visit: Diagnoses Pneumonia, unspecified organism (05/24/23) Chronic obstructive pulmonary disease with (acute) exacerbation (05/24/23) Other abnormalities of breathing (05/24/23) Subjective Subjective No acute events overnight. Patient seen at bedside this morning, daughter and granddaughter present. Patient was sitting up comfortably in bed, conversing normally, in no acute distress. She was breathing comfortably on room air at rest. Patient states she feels significantly better today than on admission. She does continue to have moderate shortness of breath with exertion, which is concerning to her as she lives in a two-story home and is intent on going home on discharge. She reports a mild cough with occasional sputum production. Denies any fevers or chills. Denies any chest pain. No other acute concerns at this time. Objective Data Objective Data Vital Signs: Vital Signs Temp Pulse Resp BP Pulse Ox O2 Del Method O2 Flow Rate 98.4 F 105 H 16 114/59 L 95 Room Air 2 05/25/23 08:00 05/25/23 08:00 05/25/23 08:00 05/25/23 08:00 05/25/23 08:00 05/25/23 09:00 05/25/23 06:58 Oxygen Flow Rate (L/min) 2 Oxygen Delivery Method Room Air Weight: 58.74 kg Body Mass Index (BMI) 23.8 Intake & Output: Intake and Output for Last 24 Hours 05/23/23 05/24/23 05/25/23 23:59 23:59 23:59 Intake Total 2685.00 / 2685.00 200 / 200 Balance 2685.00 / 2685.00 200 / 200 Lab / Micro Data 05/25/23 06:10 05/25/23 06:10 Labs: Laboratory Results - last 24 hr 05/25/23 06:10: WBC 19.1 H, RBC 3.03 L, Hgb 9.9 L, Hct 30.6 L, MCV 101.0 H, MCH 32.7 H, MCHC 32.4, RDW Std Deviation 50.7 H, RDW Coeff of Francie 13.8, Plt Count 511 H, MPV 8.5, Immature Gran % (Auto) 1.000 H, Neut % (Auto) 93.0 H, Lymph % (Auto) 2.9 L, [place] % (Auto) 2.9, Eos % (Auto) 0.0, Baso % (Auto) 0.2, Absolute Neuts (auto) 17.7 H, Absolute Lymphs (auto) 0.56 L, Nucleated RBC % 0, Sodium 137, Potassium 4.1, Chloride 108 H, Carbon Dioxide 25.0, Anion Gap 4 L, BUN 11, Creatinine 0.75, Estim Creat Clear Calc 50.27, Est GFR (MDRD) Af Amer 98, Est GFR (MDRD) Non-Af 81, BUN/Creatinine Ratio 14.7, Glucose 169 H, Calcium 9.4 Micro: Microbiology 05/24/23 09:32 Mucosa - Nose SARS-CoV-2, Influenza & RSV (PCR) - Final 05/24/23 23:20 Urine Catheter - Catheter Legionella Antigen - Final 05/24/23 23:20 Urine Catheter - Catheter Streptococcus pneumoniae Antigen (M - Final Physical Exam Const alert, oriented x3, no apparent distress and average body habitus Constitutional Narrative: Pleasant elderly female, sitting up comfortably in bed, conversing normally, no acute distress. General Appearance: cooperative and comfortable HEENT normocephalic, head/scalp atraumatic, hearing grossly normal bilaterally, nasal mucous membranes and turbinates normal and moist oral mucous membranes Eyes PERRL, EOMs intact bilaterally and conjunctivae normal Neck full ROM Chest inspection of chest normal Resp normal respiratory effort and no use of accessory muscles Resp Narrative: Breathing comfortably on room air. Good air movement bilaterally with only mild decreased breath sounds in bilateral lung bases. No wheezing or crackles noted. Cardio regular rate, regular rhythm, no murmurs and peripheral pulses 2+ throughout GI normal to inspection, nondistended, normoactive bowel sounds, soft to palpation, non-tender and non-distended Back/Spine normal ROM Extremity normal to inspection, full ROM and no pedal edema Skin no rashes or lesions noted Neuro no focal motor deficits and no sensory deficits noted Speech: speech normal Psych mental status grossly normal Assessment & Plan Assessment/Plan (1) Multifocal pneumonia: (2) COPD with exacerbation: (3) Respiratory insufficiency: PLAN: Plan Patient is a 72-year-old female who presented [facility] ED on 05/24/2023 with worsening shortness of breath. 1. Multifocal pneumonia with unclear organism, COPD exacerbation with acute hypoxia ? Presented with worsening shortness of breath and wheezing at rest. Not on home O2 at baseline, currently requiring up to 2 L nasal cannula on admit. ? CTA chest showed no PE bilateral lower lobe bronchial thickening and multifocal patchy opacities consistent with pneumonia. ? Respiratory panel negative, urine antigens negative, unable to produce sputum sample, blood cultures pending. ? Has shown good improvement on broad-spectrum antibiotics and acute COPD treatments. Continue vancomycin and Zosyn for now. Continue steroids and scheduled nebs. Continue home long-acting inhaler. ? Weaned to room air at rest on 05/24. Will need home O2 ambulatory testing prior to discharge. 2. Lung cancer with metastases to pancreas and kidney ? Follows with Dr. Shah. Currently on chemotherapy every 3 weeks, unclear agent. CTA chest on admit notably showed chronic changes in right perihilar soft tissue's with improvement compared to PET/CT scan from 09/16/2022. No oncology needs while inpatient, continue outpatient follow-up. Chronic medical conditions: ? History of tobacco abuse: Quit in 03/2022. Encouraged continued cessation. ? Anxiety: Continue home Xanax 0.5 mg twice daily as needed. ? OA: Continue Tylenol as needed. DVT prophylaxis: Lovenox CODE STATUS: Full code, verified Expected disposition: Home, 1 to 2 days Total clinical time spent by myself addressing the patient's medical issues, reviewing all the data, and collaborating with patient's care team: 35 minutes. Charges/Coding Visit Charges Inpatient E&M: 63140 Subs Hosp L2
[2023-05-25 13:11] LABS: Pathologist Review Reviewed
[2023-05-25 13:12] LABS: Vancomycin, Trough Level 7.9 ug/mL (5.0-15.0)
--- NOTE | 2023-05-25 13:20 | PCM.RX.CS ---
Consult Antibiotic Management Pharmacy has been consulted to manage selected antibiotic: Vancomycin Type of Intervention Type of Consult: Follow-up Suspected Infection Suspected Infection: Pneumonia Prior Doses of Antibiotics Prior Doses of Antibiotics Received/Current Regimen: Vancomycin 500 mg IV Q12H given 05/23 @ 1309, and 05/24 @ 0131 Labs Labs: Sodium 137 mmol/L (136-145) 05/25/23 06:10 Potassium 4.1 mmol/L (3.5-5.1) 05/25/23 06:10 Chloride 108 mmol/L (98-107) H 05/25/23 06:10 Carbon Dioxide 25.0 mmol/L (21.0-32.0) 05/25/23 06:10 Anion Gap 4 (5-15) L 05/25/23 06:10 BUN 11 mg/dL (7-18) 05/25/23 06:10 Creatinine 0.75 mg/dL (0.55-1.02) 05/25/23 06:10 Est GFR (MDRD) Af Amer 98 mL/min (>60) 05/25/23 06:10 Est GFR (MDRD) Non-Af 81 mL/min (>60) 05/25/23 06:10 BUN/Creatinine Ratio 14.7 RATIO (10-20) 05/25/23 06:10 Glucose 169 mg/dL (74-106) H 05/25/23 06:10 Vancomycin Trough 7.9 ug/mL (5.0-15.0) 05/25/23 12:26 Microbiology Microbiology: Microbiology 05/24/23 09:32 Mucosa - Nose SARS-CoV-2, Influenza & RSV (PCR) - Final 05/24/23 23:20 Urine Catheter - Catheter Legionella Antigen - Final 05/24/23 23:20 Urine Catheter - Catheter Streptococcus pneumoniae Antigen (M - Final Dosing Weight Weight used for dosin.7 kg Estimated Creatinine Clearance Estimated Creatinine Clearance: ~50 Goal Trough Goal Trough: 15-20 mcg/mL Pharmacy Plan for Drug Dosing Pharmacy Plan for Drug Dosing: Vancomycin trough = 7.9, increase to 1000 mg Q12H Pharmacy Service will continue to monitor and adjust dosing as required. Follow-Up Labs Follow-Up Labs: Trough: Vancomycin Date/Time Labs Ordered Labs to be done on [date and time ordered]: 05/27/23 @ 0030
[2023-05-25] MEDS: Vancomycin IV 1,000 MG/200 ML BAG 200 MG IV (13:27)
[2023-05-25 14:00] VITALS: BP 130/78; PULSE 94; RESP 16; TEMP 36.7; O2SAT 95
[2023-05-25] MEDS: Vancomycin Trough/Random Due 1 LAB MC (14:38)
[2023-05-25 20:40] VITALS: BP 141/76; PULSE 95; RESP 16; TEMP 36.7; O2SAT 98
[2023-05-25 20:41] VITALS: PULSE 95
[2023-05-26] MEDS: Vancomycin IV 1,000 MG/200 ML BAG 200 MG IV ×2 (01:47→13:02)
[2023-05-26 01:54] VITALS: BP 158/60; PULSE 85; RESP 16; TEMP 36.6; O2SAT 93
[2023-05-26 03:45] VITALS: BMI 24.8
[2023-05-26] MEDS: Piperacil/Tazobactam 3.375 GM in 0.9% Normal Saline (50mL MB+) 50 ML IV (06:13)
[2023-05-26] MEDS: Enoxaparin 40 MG/0.4 ML Syringe SC (07:27)
[2023-05-26] MEDS: Folic Acid 1 MG Tablet PO (07:27)
[2023-05-26] MEDS: MethylPREDNISolone 125 MG/2 ML Vial 60 MG IV (07:28)
[2023-05-26] MEDS: Pantoprazole Sodium 40 MG Tablet PO (07:28)
[2023-05-26] MEDS: Cholecalciferol (Vit D3) 125 MCG CAPSULE (5,000 UNITS) 250 MCG PO (07:28)
[2023-05-26 07:34] VITALS: BP 154/83; PULSE 80; RESP 16; TEMP 37; O2SAT 95
[2023-05-26 08:03] VITALS: O2SAT 94; O2SAT 95
--- NOTE | 2023-05-26 09:29 | CASEMGMT ---
Pt did not qualify for home oxygen.
--- NOTE | 2023-05-26 10:12 | PN.HOSP_ITS ---
Reason for Visit Reason for Visit: Diagnoses Pneumonia, unspecified organism (05/24/23) Chronic obstructive pulmonary disease with (acute) exacerbation (05/24/23) Other abnormalities of breathing (05/24/23) Subjective Subjective No acute events overnight. Patient seen at bedside this morning. Sitting up comfortably in bed, conversing normally, no acute distress. Breathing comfortably on room air. Patient states she continues to feel better each day. She was able to walk around with the assistance of nursing staff this morning, did have some shortness of breath with exertion but this is improved from previous days. Did not require any supplemental oxygen with ambulation. She denies any fevers or chills. Denies any chest pain or shortness of breath at rest. Patient is hopeful about being discharged home this afternoon. No other acute concerns. Objective Data Objective Data Vital Signs: Vital Signs Temp Pulse Resp BP Pulse Ox O2 Del Method O2 Flow Rate 98.6 F 80 16 154/83 H 95 Room Air 2 05/26/23 07:34 05/26/23 07:34 05/26/23 07:34 05/26/23 07:34 05/26/23 08:03 05/26/23 09:11 05/25/23 06:58 Oxygen Flow Rate (L/min) 2 Oxygen Delivery Method Room Air Weight: 61.235 kg Body Mass Index (BMI) 24.8 Intake & Output: Intake and Output for Last 24 Hours 05/24/23 05/25/23 05/26/23 23:59 23:59 23:59 Intake Total 2685.00 / 2685.00 1800 / 1800 802.33 / 802.33 Balance 2685.00 / 2685.00 1800 / 1800 802.33 / 802.33 Lab / Micro Data 05/25/23 06:10 05/25/23 06:10 Labs: Laboratory Results - last 24 hr 05/23/23 21:45: Diff Path Review Reviewed 05/25/23 12:26: Vancomycin Trough 7.9 Micro: Microbiology 05/23/23 22:30 Blood Culture (Wb) - Anticubital Left Blood Culture - Preliminary No growth in 48 hours. 05/23/23 22:20 Blood Culture (Wb) - Anticubital Right Blood Culture - Preliminary No growth in 48 hours. 05/24/23 09:32 Mucosa - Nose SARS-CoV-2, Influenza & RSV (PCR) - Final 05/24/23 23:20 Urine Catheter - Catheter Legionella Antigen - Final 05/24/23 23:20 Urine Catheter - Catheter Streptococcus pneumoniae Antigen (M - Final Physical Exam Const alert, oriented x3, no apparent distress and average body habitus Constitutional Narrative: Pleasant elderly female, sitting up comfortably in bed, conversing normally, no acute distress. General Appearance: cooperative and comfortable HEENT normocephalic, head/scalp atraumatic, hearing grossly normal bilaterally, nasal mucous membranes and turbinates normal and moist oral mucous membranes Eyes PERRL, EOMs intact bilaterally and conjunctivae normal Neck full ROM Chest inspection of chest normal Resp normal respiratory effort and no use of accessory muscles Resp Narrative: Breathing comfortably on room air. Good air movement bilaterally with only mild decreased breath sounds in bilateral lung bases. No wheezing or crackles noted. Cardio regular rate, regular rhythm, no murmurs and peripheral pulses 2+ throughout GI normal to inspection, nondistended, normoactive bowel sounds, soft to palpation, non-tender and non-distended Back/Spine normal ROM Extremity normal to inspection, full ROM and no pedal edema Skin no rashes or lesions noted Neuro no focal motor deficits and no sensory deficits noted Speech: speech normal Psych mental status grossly normal Assessment & Plan Assessment/Plan (1) Multifocal pneumonia: (2) COPD with exacerbation: (3) Respiratory insufficiency: PLAN: Plan Patient is a 72-year-old female who presented [facility] ED on 05/24/2023 with worsening shortness of breath. 1. Multifocal pneumonia with unclear organism, COPD exacerbation with acute hypoxia ? Presented with worsening shortness of breath and wheezing at rest. Not on home O2 at baseline, currently requiring up to 2 L nasal cannula on admit. ? CTA chest showed no PE bilateral lower lobe bronchial thickening and multifocal patchy opacities consistent with pneumonia. ? Respiratory panel negative, urine antigens negative, unable to produce sputum sample, blood cultures pending. ? Has shown good improvement on broad-spectrum antibiotics and acute COPD treatments. Continue vancomycin and Zosyn for now. Continue steroids and scheduled nebs. Continue home long-acting inhaler. ? Weaned to room air at rest on 05/24. O2 ambulatory test on 05/25 completed, no supplemental oxygen needs on discharge. ? Will plan to discharge home this afternoon on p.o. steroids and p.o. antibiotics to complete 5-day courses of both. 2. Lung cancer with metastases to pancreas and kidney ? Follows with Dr. Shah. Currently on chemotherapy every 3 weeks, unclear agent. CTA chest on admit notably showed chronic changes in right perihilar soft tissue's with improvement compared to PET/CT scan from 09/16/2022. No oncology needs while inpatient, continue outpatient follow-up. Chronic medical conditions: ? History of tobacco abuse: Quit in 03/2022. Encouraged continued cessation. ? Anxiety: Continue home Xanax 0.5 mg twice daily as needed. ? OA: Continue Tylenol as needed. DVT prophylaxis: Lovenox CODE STATUS: Full code, verified Expected disposition: Home, 1 to 2 days Total clinical time spent by myself addressing the patient's medical issues, reviewing all the data, and collaborating with patient's care team: 35 minutes. Charges/Coding Visit Charges Inpatient E&M: 81573 Subs Hosp L2
[2023-05-26] MEDS: ALPRAZolam 0.5 MG Tablet PO (10:59)
[2023-05-26 11:21] VITALS: BP 166/98; PULSE 96; RESP 16; TEMP 36.6; O2SAT 96
--- NOTE | 2023-05-26 13:14 | DCINST_ITS ---
Discharge Instructions Diet Discharge Diet: No restrictions Activity Discharge Activity: No Restrictions Weight Bearing Status: Full weight bearing Follow Up Care Test Results: Test results from this visit will be discussed in further detail at your follow- up appointment, if applicable. Discharge Plan Admission Admit Date/Time: 05/24/23 00:33 Primary Reason for Your Visit: Shortness of breath Attending Provider: Ernesto Sibley Primary Care Provider: Feroz Miranda Consulting Providers: Gavino Michele; Mitchell Stuart Instructions Patient Instructions: ED COPD Flare Additional Instructions / Restrictions: Take prednisone and Augmentin for 2 more days on discharge to complete 5-day courses of steroids and antibiotics total. Follow-up with your primary care doctor as needed. Discharge Orders/Prescriptions Prescriptions: New prednisone 20 mg tablet 40 mg PO DAILY 2 Days Qty: 4 0RF amoxicillin-pot clavulanate 875-125 mg tablet 1 tab PO BID 2 Days Qty: 4 0RF Continued guaifenesin [Mucinex] 1,200 mg tablet extended release 12hr 1,200 mg PO PRN lorazepam [Ativan] 0.5 mg tablet 0.5 mg PO BID PRN (Reason: Anxiety) cholecalciferol (vitamin D3) 250 mcg (10,000 unit) capsule 250 mcg PO DAILY vitamin B complex [B Complex-Vitamin B12] Tablet 1 tab PO DAILY mecobalamin (vitamin B12) 2,500 mcg tablet,chewable 2,500 mcg PO DAILY albuterol sulfate 2.5 mg /3 mL (0.083 %) solution for nebulization 2.5 mg inhalation Q4H PRN (Reason: Sob &/Or Wheezing) Qty: 180 3RF albuterol sulfate [Ventolin HFA] 90 mcg/actuation HFA aerosol inhaler 2 puff inhalation Q4H PRN (Reason: shortness of breath or wheezing) Qty: 18 6RF folic acid 1 mg tablet 1 mg PO DAILY Patient Comments: TAKE 1 TABLET BY MOUTH ONCE DAILY Trelegy Ellipta 200-62.5-25 mcg blister with device 1 inh inhalation DAILY Qty: 3 3RF Discontinued alprazolam 0.5 mg tablet 0.5 mg PO BID PRN Trelegy Ellipta 100-62.5-25 mcg blister with device 1 inh INHALATION DAILY PRN Patient Comments: INHALE 1 PUFF BY MOUTH ONCE DAILY. ADMINISTER AT APPROXIMATELY THE SAME TIME EACH DAY No Action (DME) Nebulizer machine See Rx Instructions .ROUTE .MEDSULY Qty: 1 0RF Rx Instructions: As directed Referrals / Follow Up: Feroz Miranda DO [Primary Care Provider] - Disposition Disposition (needs filled in before D/C Order can be placed): Home, Self Care
--- NOTE | 2023-05-26 14:21 | DS.PCM_ITS ---
Providers Date of Admission: 05/24/23 Date of Discharge: 05/26/23 Primary Care Physician: Dr. Feroz Miranda DO Reason For Visit: AE COPD WITH MULTIFOCAL PNA Diagnosis Discharge Diagnosis (1) Multifocal pneumonia: Status: Acute Code(s): J18.9 - Pneumonia, unspecified organism (2) COPD with exacerbation: Status: Chronic Code(s): J44.1 - Chronic obstructive pulmonary disease with (acute) exacerbation (3) Respiratory insufficiency: Status: Acute Code(s): R06.89 - Other abnormalities of breathing Medications at Discharge Home Medications cholecalciferol (vitamin D3) 250 mcg (10,000 unit) capsule 250 mcg PO DAILY s upplement 08/05/22 guaifenesin 1,200 mg tablet, extended release 12 hr (Mucinex) 1,200 mg PO PRN co ngestion 08/05/22 lorazepam 0.5 mg tablet (Ativan) 0.5 mg PO BID PRN Anxiety 08/05/22 mecobalamin (vitamin B12) 2,500 mcg chewable tablet 2,500 mcg PO DAILY supplement 08/05/22 vitamin B complex (B Complex-Vitamin B12 tablet) 1 tab PO DAILY supplement 08/05/22 Nebulizer machine #1 ea 08/29/22 albuterol sulfate 2.5 mg/3 mL (0.083 %) solution for nebulization 2.5 mg (3 mL) inhalation Q4H PRN Sob &/Or Wheezing #180 mL 08/29/22 albuterol sulfate 90 mcg/actuation aerosol inhaler (Ventolin HFA) 2 puff inhalation Q4H PRN shortness of breath or wheezing #18 grams 08/29/22 fluticasone fur. 200 mcg-umeclid 62.5 mcg-vilant 25 mcg inhalat.powder (Trelegy Ellipta) 1 inh inhalation DAILY breathing #3 ea 11/17/22 folic acid 1 mg tablet 1 mg PO DAILY vit 05/24/23 amoxicillin 875 mg-potassium clavulanate 125 mg tablet 1 tab PO BID 2 days #4 tabs 05/26/23 prednisone 20 mg tablet 40 mg (2 x 20 mg) PO DAILY 2 days #4 tabs 05/26/23 Hospital Course Operations None Procedures EKG and - (Chest x-ray, CTA chest) Summary of Care Provided Minutes Spent on Discharge: 35 Hospital Course: Patient is a 72-year-old female who presented [facility] ED on 05/24/2023 with worsening shortness of breath. Hospital course as noted below. Patient discharged home without any therapy needs in stable condition on 05/25. 1. Multifocal pneumonia with unclear organism, COPD exacerbation with acute hypoxia ? Presented with worsening shortness of breath and wheezing at rest. Not on home O2 at baseline, currently requiring up to 2 L nasal cannula on admit. ? CTA chest showed no PE bilateral lower lobe bronchial thickening and mult ifocal patchy opacities consistent with pneumonia. ? Respiratory panel negative, urine antigens negative, unable to produce sputum sample, blood cultures pending. ? Has shown good improvement on broad-spectrum antibiotics and acute COPD treatments. Continue vancomycin and Zosyn for now. Continue steroids and scheduled nebs. Continue home long-acting inhaler. ? Weaned to room air at rest on 05/24. O2 ambulatory test on 05/25 completed, no supplemental oxygen needs on discharge. ? Discharged on prednisone 40 mg daily and Augmentin to complete 5-day courses of steroids and antibiotics. 2. Lung cancer with metastases to pancreas and kidney ? Follows with Dr. Shah. Currently on chemotherapy every 3 weeks, unclear agent. CTA chest on admit notably showed chronic changes in right perihilar s oft tissue's with improvement compared to PET/CT scan from 09/16/2022. No oncology needs while inpatient, continue outpatient follow-up. Chronic medical conditions: ? History of tobacco abuse: Quit in 03/2022. Encouraged continued cessation. ? Anxiety: Continue home Xanax 0.5 mg twice daily as needed. ? OA: Continue Tylenol as needed. Total clinical time spent by myself addressing the patient's discharge needs: 35 minutes. Physical Exam Const alert, oriented x3, no apparent distress and average body habitus Constitutional Narrative: Pleasant elderly female, sitting up comfortably in bed, conversing normally, no acute distress. General Appearance: cooperative and comfortable HEENT normocephalic, head/scalp atraumatic, hearing grossly normal bilaterally, nasal mucous membranes and turbinates normal and moist oral mucous membranes Eyes PERRL, EOMs intact bilaterally and conjunctivae normal Neck full ROM Chest inspection of chest normal Resp normal respiratory effort and no use of accessory muscles Resp Narrative: Breathing comfortably on room air. Good air movement bilaterally with only mild decreased breath sounds in bilateral lung bases. No wheezing or crackles noted. Cardio regular rate, regular rhythm, no murmurs and peripheral pulses 2+ throughout GI normal to inspection, nondistended, normoactive bowel sounds, soft to palpation, non-tender and non-distended Back/Spine normal ROM Extremity normal to inspection, full ROM and no pedal edema Skin no rashes or lesions noted Neuro no focal motor deficits and no sensory deficits noted Speech: speech normal Psych mental status grossly normal Weight / BMI Weight Weight: 61.235 kg Body Mass Index (BMI) 24.8 ABG / Lab / Microbiology Data 05/25/23 06:10 05/25/23 06:10 Microbiology: Microbiology 05/23/23 22:30 Blood Culture (Wb) - Anticubital Left Blood Culture - Preliminary No growth in 48 hours. 05/23/23 22:20 Blood Culture (Wb) - Anticubital Right Blood Culture - Preliminary No growth in 48 hours. 05/24/23 09:32 Mucosa - Nose SARS-CoV-2, Influenza & RSV (PCR) - Final 05/24/23 23:20 Urine Catheter - Catheter Legionella Antigen - Final 05/24/23 23:20 Urine Catheter - Catheter Streptococcus pneumoniae Antigen (M - Final D/C Instructions Discharge Diet: No restrictions Weight Bearing Status: Full weight bearing Meaningful Use Info Meaningful Use Diagnoses (Choose all that apply): None applicable Discharge Plan Admission Admit Date/Time: 05/24/23 00:33 Primary Reason for Your Visit: Shortness of breath Attending Provider: Ernesto Sibley Primary Care Provider: Feroz Miranda Consulting Providers: Gavino Michele; Mitchell Stuart Instructions Patient Instructions: ED COPD Flare Additional Instructions / Restrictions: Take prednisone and Augmentin for 2 more days on discharge to complete 5-day courses of steroids and antibiotics total. Follow-up with your primary care doctor as needed. Discharge Orders/Prescriptions Prescriptions: New prednisone 20 mg tablet 40 mg PO DAILY 2 Days Qty: 4 0RF amoxicillin-pot clavulanate 875-125 mg tablet 1 tab PO BID 2 Days Qty: 4 0RF Continued guaifenesin [Mucinex] 1,200 mg tablet extended release 12hr 1,200 mg PO PRN lorazepam [Ativan] 0.5 mg tablet 0.5 mg PO BID PRN (Reason: Anxiety) cholecalciferol (vitamin D3) 250 mcg (10,000 unit) capsule 250 mcg PO DAILY vitamin B complex [B Complex-Vitamin B12] Tablet 1 tab PO DAILY mecobalamin (vitamin B12) 2,500 mcg tablet,chewable 2,500 mcg PO DAILY albuterol sulfate 2.5 mg /3 mL (0.083 %) solution for nebulization 2.5 mg inhalation Q4H PRN (Reason: Sob &/Or Wheezing) Qty: 180 3RF albuterol sulfate [Ventolin HFA] 90 mcg/actuation HFA aerosol inhaler 2 puff inhalation Q4H PRN (Reason: shortness of breath or wheezing) Qty: 18 6RF folic acid 1 mg tablet 1 mg PO DAILY Patient Comments: TAKE 1 TABLET BY MOUTH ONCE DAILY Trelegy Ellipta 200-62.5-25 mcg blister with device 1 inh inhalation DAILY Qty: 3 3RF Discontinued alprazolam 0.5 mg tablet 0.5 mg PO BID PRN Trelegy Ellipta 100-62.5-25 mcg blister with device 1 inh INHALATION DAILY PRN Patient Comments: INHALE 1 PUFF BY MOUTH ONCE DAILY. ADMINISTER AT APPROXIMATELY THE SAME TIME EACH DAY No Action (DME) Nebulizer machine See Rx Instructions .ROUTE .MEDSUPPLY Qty: 1 0RF Rx Instructions: As directed Referrals / Follow Up: Feroz Miranda DO [Primary Care Provider] - Disposition Disposition (needs filled in before D/C Order can be placed): Home, Self Care Charges/Coding Visit Charges Inpatient E&M: 57461 Disch Hosp >30min
== END 2023-05-26 16:22 | disposition home or self-care (01) | DRG 190 ==
LOC: ED 05-24 01:40 → MS3 05-24 02:05
PROVIDERS: Nurse Practitioner; Admitting Provider Internal Medicine; Emergency Provider Student in an Organized Health Care Education/Training Program; PCP Student in an Organized Health Care Education/Training Program; Visit Provider Hospitalist
DX: J44.1 Chronic obstructive pulmonary disease with (acute) exacerbation (principal); J18.9 Pneumonia, unspecified organism; C78.89 Secondary malignant neoplasm of other digestive organs; C79.00 Secondary malignant neoplasm of unspecified kidney and renal pelvis; C34.91 Malignant neoplasm of unspecified part of right bronchus or lung; J44.0 Chronic obstructive pulmonary disease with (acute) lower respiratory infection; M19.90 Unspecified osteoarthritis, unspecified site; F41.1 Generalized anxiety disorder; Z79.51 Long term (current) use of inhaled steroids; Z87.891 Personal history of nicotine dependence; Z79.899 Other long term (current) drug therapy
CPT/HCPCS: 36415; 71046; 71275; 80048; 80053; 80202; 81001; 83605; 83735; 84100; 84443; 84484; 85025; 87040; 87449; 87631; 93005; 94640; 94668; 97162; 99285; J7030; J7040; Q9967; A4216

== ENCOUNTER 2023-06-11 20:14 | Inpatient (IN) | payer MEDICARE, SELFPAY ==
[2023-06-11 20:14] VITALS: BP 154/76; PULSE 129; RESP 16; TEMP 36.2; O2SAT 98
--- NOTE | 2023-06-11 21:08 | EX.ED.DYSGE1 ---
HPI <KEENA Rendon - Last Filed: 06/11/23 22:19> History of Present Illness Chief Complaint: Nausea/Vomiting/Diarrhea Narrative Narrative: Patient presenting today due to abdominal pain and diarrhea that she has had since last Thursday. 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 She reports, I feel like crap. Her friend is in the room reports that her heart rate today was in the 120s which is unusual for her. She had a temperature today of 100.5 ?F. She reports that her abdominal pain is intermittent and she has had intermittent loose stools over this week. No history of C. difficile or recent antibiotics. She denies any chest pain, shortness of breath, blood in the stool, and urinary symptoms. PFSH <KEENA Rendon - Last Filed: 06/11/23 22:19> [facility] Medical History Adenocarcinoma of lung Anxiety Asthma-COPD overlap syndrome BMI 23.0-23.9, adult Cancer COPD (chronic obstructive pulmonary disease) Dyspnea on effort Fatigue Former smoker History of echocardiogram History of lung cancer History of stress test Kidney disease Lung mass Mass of right lung Non-smoker Postnasal drip Shortness of breath on exertion Standardized adult depression screening tool completed Wears dentures Wears glasses Home Medications cholecalciferol (vitamin D3) 250 mcg (10,000 unit) capsule 250 mcg PO DAILY supplement 08/05/22 [History Last Taken 05/10/23] mecobalamin (vitamin B12) 2,500 mcg chewable tablet 2,500 mcg PO DAILY supplement 08/05/22 [History Last Taken 05/10/23] Nebulizer machine #1 ea 08/29/22 [Rx Last Taken Unknown] albuterol sulfate 2.5 mg/3 mL (0.083 %) solution for nebulization 2.5 mg (3 mL) inhalation Q4H PRN Sob &/Or Wheezing #180 mL 08/29/22 [Rx Last Taken Unknown] albuterol sulfate 90 mcg/actuation aerosol inhaler (Ventolin HFA) 2 puff inhalation Q4H PRN shortness of breath or wheezing #18 grams 08/29/22 [Rx Last Taken Unknown] fluticasone fur. 200 mcg-umeclid 62.5 mcg-vilant 25 mcg inhalat.powder (Trelegy Ellipta) 1 inh inhalation DAILY breathing #3 ea 11/17/22 [Rx Last Taken 05/11/23] folic acid 1 mg tablet 1 mg PO DAILY vit 05/24/23 [History Last Taken Unknown] Allergy/AdvReac Type Severity Reaction Status Date / Time No Known Allergies Allergy Verified 06/11/23 20:16 Family History Father Asthma Son Asthma Mother Breast cancer Uncle Diabetes Type 1 Surgical History H/O tubal ligation Hx of tonsillectomy Social History Smoking Status: Former smoker quit date: 03/23/22 Tobacco: How many years used: 50 how long ago did patient quit smoking: march 2022 alcohol intake: never substance use type: does not use caffeine: Yes Type: coffee Number of servings: 2 ROS <KEENA Rendon - Last Filed: 06/11/23 22:19> ROS ED Constitutional Constitutional ED: Reports fever(s); Denies chills Cardiovascular Cardiovascular: Denies chest pain Respiratory/Chest Respiratory/Chest: Denies cough or dyspnea Gastrointestinal Gastrointestinal: Reports abdominal pain, diarrhea and nausea; Denies vomiting Genitourinary Genitourinary ED: Denies dysuria, hematuria or urinary urgency Musculoskeletal Musculoskeletal: Denies arthralgias or myalgias Integumentary Denies rash Neurologic Neurologic: Denies weakness EXAM <KEENA Rendon - Last Filed: 06/11/23 22:19> Physical Exam Const Vital Signs: 06/11/23 20:14 06/11/23 22:14 Temperature 97.2 F L 102.5 F H Temperature Source Temporal Axillary Pulse Rate 129 H 123 H Respiratory Rate 16 34 H Blood Pressure 154/76 H 141/85 H Blood Pressure Mean 102 103 Pulse Ox 98 91 Oxygen Delivery Method Room Air Room Air Positive well nourished, well developed and no apparent distress General Appearance ED: well developed HEENT Reports normocephalic and head/scalp atraumatic Mouth ED: Yes moist mucous membranes normal Eyes PERRL and EOMs intact bilaterally Neck full ROM and supple Chest Wall inspection of chest normal Resp normal respiratory effort and clear to auscultation bilaterally Cardio regular rate and regular rhythm GI soft to palpation, non-tender, non-distended and no masses Back/Spine normal ROM and normal to inspection Extremity normal to inspection and full ROM Neuro oriented x3, CN's II-XII intact bilaterally, moves all extremities, no focal motor deficits and no sensory deficits noted Sensorium / Orientation: awake and alert Psych mental status grossly normal and thought process normal Skin no rashes or lesions noted and no wounds <Dr. Ta Cao DO - Last Filed: 06/11/23 23:55> Physical Exam Const Vital Signs: 06/11/23 20:14 06/11/23 22:14 Temperature 97.2 F L 102.5 F H Temperature Source Temporal Axillary Pulse Rate 129 H 123 H Respiratory Rate 16 34 H Blood Pressure 154/76 H 141/85 H Blood Pressure Mean 102 103 Pulse Ox 98 91 Oxygen Delivery Method Room Air Room Air [facility] <KEENA Rendon - Last Filed: 06/11/23 22:19> [facility] Narrative Medical decision making narrative: Patient presenting today due to fever, tachycardia, she is currently being treated with chemotherapy for metastatic lung cancer to the right kidney. She has had intermittent loose stools over this past week with intermittent nausea. She reports that her abdominal pain has been intermittent, she is not currently in pain. Her abdomen is soft and nontender. No history of C. difficile but we will try to obtain a stool sample if she is able to provide one. Workup will be obtained to rule out leukocytosis, anemia, electrolyte abnormality, WILLY, and UTI. COVID, RSV, and influenza swab will be obtained. Chest x-ray be obtained to rule out infiltrate. She will be given IV fluids. I did offer analgesia but she reports that she took a [place] prior to arrival and does not need anything for pain at this time. Lab Data Attestation: I reviewed the patient's lab results. Labs: Laboratory Results - last 24 hr 06/11/23 21:34 WBC 0.7 L* RBC 3.66 L Hgb 11.7 L Hct 35.3 L MCV 96.4 MCH 32.0 MCHC 33.1 RDW Std Deviation 48.6 H RDW Coeff of Francie 13.5 Plt Count 281 MPV 9.1 Neut % (Auto) Not Reportable Absolute Neuts (auto) 0.3 L Absolute Lymphs (auto) 0.08 L Total Counted 100 Neutrophils % (Manual) 34 L Band Neutrophils % 2 Lymphocytes % (Manual) 12 L Monocytes % (Manual) 34 H Metamyelocytes % 2 H Myelocytes % 16 H Differential Comment SEE COMMENTS Diff Path Review May foll Platelet Estimate ADEQUATE RBC Morphology N CHROM Anisocytosis 1+ Macrocytosis 1+ Ovalocytes RARE Sodium 124 L Potassium 4.9 Chloride 90 L Carbon Dioxide 27.0 Anion Gap 7 BUN 13 Creatinine 0.94 Estim Creat Clear Calc 46.27 Est GFR (MDRD) Af Amer 75 Est GFR (MDRD) Non-Af 62 BUN/Creatinine Ratio 13.8 Glucose 121 H Calcium 9.1 Total Bilirubin 1.20 H AST 41 H ALT 23 Alkaline Phosphatase 53 Total Protein 6.6 Albumin 2.5 L Globulin 4.1 Albumin/Globulin Ratio 0.6 L Lipase 12 L Radiography Diagnostic Testing: Clinical Impression(s) from Imaging Studies Chest X-Ray 06/11/23 22:20 IMPRESSION: Persistent interstitial thickening in the right infrahilar region and left lower lobe improved since previous exam. No new infiltrates. Electronically Signed: Reinaldo Smart MD at 22:51 EDT , <Dr. Ta Cao, DO - Last Filed: 06/11/23 23:55> [facility] Narrative Medical decision making narrative: Patient presenting today due to fever, tachycardia, she is currently being treated with chemotherapy for metastatic lung cancer to the right kidney. She has had intermittent loose stools over this past week with intermittent nausea. She reports that her abdominal pain has been intermittent, she is not currently in pain. Her abdomen is soft and nontender. No history of C. difficile but we will try to obtain a stool sample if she is able to provide one. Workup will be obtained to rule out leukocytosis, anemia, electrolyte abnormality, WILLY, and UTI. COVID, RSV, and influenza swab will be obtained. Chest x-ray be obtained to rule out infiltrate. She will be given IV fluids. I did offer analgesia but she reports that she took a [place] prior to arrival and does not need anything for pain at this time. Interventions / MDM: Differential diagnosis: Neutropenic fever, chemotherapy, electrolyte abnormalities, stool infections Diagnosis considered but do not suspect: No clinical UTI symptoms. No clinical pneumonia symptoms. My EKG interpretation: N/A Imaging independently reviewed and interpreted by myself: 2 view chest x-ray: No acute process External documents reviewed: N/A Test considered but not ordered:N/A ED course: Attending note: Patient seen and evaluated with gristmiller. I perform my own [id number] evaluation. I agree with the plan of work-up. History non-small lung cancer diagnosed June 2022. Was on immunotherapy followed by Dr. Shah. First chemo treatment started 6 days ago due to kidney involvement. Intermittent nausea since then. Intermittent loose stools for last 2 to 3 days nonbloody. No cough. Today had a fever 100.5, status post Vicodin with Tylenol. Evaluation nontoxic. Soft abdomen. Lungs were normal. Heart was regular. Workup with neutropenic concerns with her fever at home no white count of 0.7 absolute neutrophils of 300. Sodium did return at 124 which can contribute to her nausea symptoms. Stool studies ordered. 2250: Spoke with her oncologist Dr. Shah, recommended broad-spectrum antibiotics with pending stool studies. Blood cultures are pending. Will discuss with hospitalist for admission. Re-evaluation: stable Disposition discussed with patient/family/significant other: Patient Case discussed with consulting clinician: Oncology, hospitalist This note was generated with [employer] dictation software. It may contain incorrect words, spelling, and punctuation that were not noted in checking the note before signing. Lab Data Labs: Laboratory Results - last 24 hr 06/11/23 21:34 WBC 0.7 L* RBC 3.66 L Hgb 11.7 L Hct 35.3 L MCV 96.4 MCH 32.0 MCHC 33.1 RDW Std Deviation 48.6 H RDW Coeff of Francie 13.5 Plt Count 281 MPV 9.1 Neut % (Auto) Not Reportable Absolute Neuts (auto) 0.3 L Absolute Lymphs (auto) 0.08 L Total Counted 100 Neutrophils % (Manual) 34 L Band Neutrophils % 2 Lymphocytes % (Manual) 12 L Monocytes % (Manual) 34 H Metamyelocytes % 2 H Myelocytes % 16 H Differential Comment SEE COMMENTS Diff Path Review May foll Platelet Estimate ADEQUATE RBC Morphology N CHROM Anisocytosis 1+ Macrocytosis 1+ Ovalocytes RARE Sodium 124 L Potassium 4.9 Chloride 90 L Carbon Dioxide 27.0 Anion Gap 7 BUN 13 Creatinine 0.94 Estim Creat Clear Calc 46.27 Est GFR (MDRD) Af Amer 75 Est GFR (MDRD) Non-Af 62 BUN/Creatinine Ratio 13.8 Glucose 121 H Calcium 9.1 Total Bilirubin 1.20 H AST 41 H ALT 23 Alkaline Phosphatase 53 Total Protein 6.6 Albumin 2.5 L Globulin 4.1 Albumin/Globulin Ratio 0.6 L Lipase 12 L Radiography Diagnostic Testing: Clinical Impression(s) from Imaging Studies Chest X-Ray 06/11/23 22:20 IMPRESSION: Persistent interstitial thickening in the right infrahilar region and left lower lobe improved since previous exam. No new infiltrates. Electronically Signed: Reinaldo Smart MD at 22:51 EDT , Discharge Plan Dx/Rx/DC Orders Clinical Impression: Non-small cell cancer of right lung, Diarrhea, Hyponatremia, Neutropenic fever Disposition Disposition: Acute Care Hospital [facility]
[2023-06-11 21:28] VITALS: BMI 24.3
[2023-06-11] MEDS: 0.9% Normal Saline (1000mL) 1,000 ML 999 ML IV (21:31)
[2023-06-11 21:40] LABS: Hematocrit 35.3 % (37-47); Hemoglobin 11.7 g/dL (12.0-15.0); Mean Corp Hgb Conc 33.1 g/dL (32-36); Mean Corpuscular Volume 96.4 fL (81-99); Mean Platelet Vol. 9.1 fl (6.2-12.0); POSITIVE COUNT YES; POSITIVE DIFFERENTIAL YES; POSITIVE MORPHOLOGY YES; Platelet Count 281 K/mm3 (150-450); RBC Distribution Width CV 13.5 % (11.6-14.6); RBC Distribution Width SD 48.6 fl (35.1-43.9); Red Blood Count 3.66 M/mm3 (4.2-5.4)
[2023-06-11 21:53] LABS: Differential Indicated MANUAL DIFF
[2023-06-11 21:54] LABS: White Blood Count 0.7 K/mm3 (4.4-11.0)
[2023-06-11 22:11] LABS: ALB/GLOB Ratio 0.6 RATIO (0.9-2.4); AST(SGOT) 41 U/L (15-37); Alanine Aminotransfer ALT/SGPT 23 U/L (13-56); Albumin, Serum 2.5 g/dL (3.2-5.0); Alkaline Phosphatase 53 U/L (45-117); Anion Gap 7 (5-15); BUN 13 mg/dL (7-18); BUN/Creat Ratio 13.8 RATIO (10-20); Calcium,Total 9.1 mg/dL (8.5-10.1); Chloride 90 mmol/L (98-107); Creatinine, Serum 0.94 mg/dL (0.55-1.02); EST Glomerular Filtration Rate 62 mL/min (>60); Est Glom Filt Rate - Afr Amer 75 mL/min (>60); Estimated Creatinine Clearance 46.27 ml/min; Globulin 4.1 g/dL (2.2-4.2); Glucose 121 mg/dL (74-106); Lipase 12 U/L (13-75); Potassium 4.9 mmol/L (3.5-5.1); Protein, Total 6.6 g/dL (6.4-8.2); Sodium Level 124 mmol/L (136-145)
[2023-06-11 22:14] VITALS: BP 141/85; PULSE 123; RESP 34; TEMP 39.2; O2SAT 91
[2023-06-11 22:18] LABS: Lymphocyte 12 % (19-41); Metamyelocyte 2 % (0-1); Monocyte 34 % (0-10); Myelocyte 16 % (0-0); Neutrophil-Band 2 % (0-5); Neutrophil-Segmented 34 % (47-70); Total Cells Counted 100 (MANUAL DIFF)
--- NOTE | 2023-06-11 22:20 | RAD_ITS ---
STUDY: X-RAY CHEST REASON FOR EXAM: Female, 72 years old. fever TECHNIQUE: PA and lateral COMPARISON: May 23, 2023 FINDINGS: There is prominence of the right infrahilar interstitial markings which have improved since previous exam... There is also improved aeration in the left lower lobe since prior exam with only mild residual interstitial thickening. There is no demonstrated pleural abnormality. Normal size heart. Normal mediastinum and zoran. Normal visualized pulmonary arteries. Mildly calcified aortic arch and descending thoracic aorta. Dorsal spine demonstrates mild degenerative change. Normal visualized, clavicles, and shoulders. Old right rib fracture There is no demonstrated abnormality of the visualized soft tissue structures of the upper abdomen. RAD/Chest PA and Lateral IMPRESSION: Persistent interstitial thickening in the right infrahilar region and left lower lobe improved since previous exam. No new infiltrates. Electronically Signed: Reinaldo Smart MD at 22:51 EDT ,
[2023-06-11 22:21] LABS: Absolute Lymphocyte Count 0.08 X10^3/uL (0.83-4.51); Absolute Neutrophil Count 0.3 X10^3/uL (2.0-7.7)
[2023-06-11 22:22] LABS: Anisocytosis 1+; Differential Comment SEE COMMENTS; Macrocytosis 1+; Platelet Estimate ADEQUATE (ADEQ); Red Cell Morphology N CHROM NORMAL (NORM C&C)
[2023-06-11 22:23] LABS: Ovalocyte RARE
[2023-06-11] MEDS: Piperacil/Tazobactam 4.5 GM in 0.9% Normal Saline (100mL MB+) 100 ML IV (23:38)
--- NOTE | 2023-06-11 23:39 | HP.PCM.HOS_ITS ---
HPI - General General Date of Admission: 06/11/23 Date of Service: 06/11/23 Chief Complaint: Fever, diarrhea, poor appetite. 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 Shah recently changed chemotherapy agents who presents to the [facility] ED on 06/11/23 with history of as noted new chemotherapeutic agent started the Thursday prior to current presentation with onset following loose stools which she reports are more pronounced whenever she has oral intake with abdominal cramping as well as decreased oral intake but no specific nausea or emesis which persisted with increasing fatigue and malaise however she started to be more tachycardic and had a temperature of 100.5 prompting eventual ED evaluation to be cautious. Workup in the ED included T1-2 0.5, heart rate 123, BP 141/85, respiratory rate 34, initially 91% on room air improving to 90% on 2 L nasal cannula, CBC with WBC 0.7, hemoglobin 11.7, MCV 96.4, platelet 281 with neutropenia and lymphopenia evident, CMP with sodium 124, chloride 90, BUN/creatinine 13/0.94, GFR 62, glucose 121, T. bili 1.20, AST/LT 41/23, lipase 12, chest x-ray with persistent interstitial thickening in the right infrahilar region and left lower lobe which is improved since prior with no new infiltrates identified, rapid SARS COVID/influenza/RSV PCR negative, blood culture x 2 pending per ED. In the ED patient ministered IV vancomycin and IV Zosyn as well as Tylenol 650 mg p.o. x 1 and 1 L normal saline bolus. [facility] Medical History (Updated 06/12/23 @ 01:[address] Rosalina Villanueva MD) Adenocarcinoma of lung Anxiety and depression Asthma-COPD overlap syndrome BMI 23.0-23.9, adult COPD (chronic obstructive pulmonary disease) Former smoker History of echocardiogram History of stress test Wears dentures Wears glasses Home Medications cholecalciferol (vitamin D3) 250 mcg (10,000 unit) capsule 250 mcg PO DAILY supplement 08/05/22 [History Last Taken 05/10/23] mecobalamin (vitamin B12) 2,500 mcg chewable tablet 2,500 mcg PO DAILY supplement 08/05/22 [History Last Taken 05/10/23] Nebulizer machine #1 ea 08/29/22 [Rx Last Taken Unknown] albuterol sulfate 2.5 mg/3 mL (0.083 %) solution for nebulization 2.5 mg (3 mL) inhalation Q4H PRN Sob &/Or Wheezing #180 mL 08/29/22 [Rx Last Taken Unknown] albuterol sulfate 90 mcg/actuation aerosol inhaler (Ventolin HFA) 2 puff inhalation Q4H PRN shortness of breath or wheezing #18 grams 08/29/22 [Rx Last Taken Unknown] fluticasone fur. 200 mcg-umeclid 62.5 mcg-vilant 25 mcg inhalat.powder (Trelegy Ellipta) 1 inh inhalation DAILY breathing #3 ea 11/17/22 [Rx Last Taken 05/11/23] folic acid 1 mg tablet 1 mg PO DAILY vit 05/24/23 [History Last Taken Unknown] Allergy/AdvReac Type Severity Reaction Status Date / Time No Known Allergies Allergy Verified 06/11/23 20:16 Family History Father Asthma Son Asthma Mother Breast cancer Uncle Diabetes Type 1 Surgical History H/O tubal ligation Hx of tonsillectomy Social History (Updated 06/12/23 @ 01:[address] Rosalina Villanueva MD) household members: none Smoking Status: Former smoker quit date: 03/23/22 Tobacco: How many years used: 50 how long ago did patient quit smokin03/2022 alcohol intake: never substance use type: does not use caffeine: Yes Type: coffee Number of servings: 2 ROS ROS Narrative Admission Review of Systems: CONSTITUTIONAL: No weight loss, + fever, chills, weakness or fatigue. HEENT: Eyes: No visual loss, blurred vision, double vision or yellow sclerae. Ears, Nose, Throat: No hearing loss, sneezing, congestion, runny nose or sore throat. SKIN: No rash or itching, lesions, wounds. CARDIOVASCULAR: No chest pain, chest pressure or chest discomfort, palpitations, edema, orthopnea, syncopal events. RESPIRATORY: + Chronic shortness of breath. No markedly new cough or sputum, wh eezing, hemoptysis. GASTROINTESTINAL: + Anorexia, diarrhea, abdominal cramping. No nausea, vomiting, melena, BRBPR. GENITOURINARY: No dysuria, frequency, urgency or retention. NEUROLOGICAL: No headache, dizziness, syncope, paralysis, ataxia, numbness or tingling in the extremities, focal weakness, change in bowel or bladder control, seizure. MUSCULOSKELETAL: + muscle, back pain, joint pain or stiffness. HEMATOLOGIC: + anemia, easy bleeding/bruising. LYMPHATICS: No enlarged nodes. No history of splenectomy. PSYCHIATRIC: + history of depression and anxiety. ENDOCRINOLOGIC: No reports of sweating, cold or heat intolerance. No polyuria or polydipsia. ALLERGIES: No history of asthma, hives, eczema or rhinitis. Vital Signs Vital Signs Vital Signs: 06/11/23 20:14 06/11/23 22:14 Temperature 97.2 F L 102.5 F H Temperature Source Temporal Axillary Pulse Rate 129 H 123 H Respiratory Rate 16 34 H Blood Pressure 154/76 H 141/85 H Blood Pressure Mean 102 103 Pulse Ox 98 91 Oxygen Delivery Method Room Air Room Air Weight Weight: 132 lb 15.02 oz Body Mass Index (BMI) 24.3 Physical Exam Narrative Physical Examination: General: Awake, alert, oriented x 3 and cooperative, seated upright in the ED, f atigued and ill-appearing. Skin: Normal color, normal turgor, no icterus, no cyanosis except occasional staged ecchymoses, abrasion. HEENT: AT/NC, EOMI, PERRLA, dry MM, no carotid bruits or JVD noted. Lungs: Severely diminished, greater bases, right greater than left, more so posteriorly at bases, occasional expiratory wheeze, mildly increased respiratory rate but no distress noted, no marked rales or rhonchi. Heart: Tachycardic with regular rhythm; no gallop, rub audible. Abdomen: Soft, NTTP with no rebound or guarding, no marked distention, mildly hyperactive BS, no appreciated HSM. Extremities: No cyanosis, clubbing, or edema. Neurological: Patient awake, alert, oriented as noted, cognitive function intact; pupils equally reactive to light and accommodation, cranial nerves II- XII grossly normal, moving all 4 extremities, no focal deficits, strength moderately to severely globally decreased secondary to acute presentation complicated by underlying comorbidities. Psychiatric: Affect appears flat, fatigued, ill-appearing, no acute evidence of depressive or anxiety feelings. Results Lab / Micro Data 06/11/23 21:34 06/11/23 21:34 Labs: Laboratory Results - last 24 hr 06/11/23 21:34: WBC 0.7 L*, RBC 3.66 L, Hgb 11.7 L, Hct 35.3 L, MCV 96.4, MCH 32.0, MCHC 33.1, RDW Std Deviation 48.6 H, RDW Coeff of Francie 13.5, Plt Count 281, MPV 9.1, Neut % (Auto) Not Reportable, Absolute Neuts (auto) 0.3 L, Absolute Lymphs (auto) 0.08 L, Total Counted 100, Neutrophils % (Manual) 34 L, Band Neutrophils % 2, Lymphocytes % (Manual) 12 L, Monocytes % (Manual) 34 H, Metamyelocytes % 2 H, Myelocytes % 16 H, Differential Comment SEE COMMENTS, Diff Path Review May foll, Platelet Estimate ADEQUATE, RBC Morphology N CHROM, Anisocytosis 1+, Macrocytosis 1+, Ovalocytes RARE, Sodium 124 L, Potassium 4.9, Chloride 90 L, Carbon Dioxide 27.0, Anion Gap 7, BUN 13, Creatinine 0.94, Estim Creat Clear Calc 46.27, Est GFR (MDRD) Af Amer 75, Est GFR (MDRD) Non-Af 62, BUN/Creatinine Ratio 13.8, Glucose 121 H, Calcium 9.1, Total Bilirubin 1.20 H, AST 41 H, ALT 23, Alkaline Phosphatase 53, Total Protein 6.6, Albumin 2.5 L, Globulin 4.1, Albumin/Globulin Ratio 0.6 L, Lipase 12 L Micro: Microbiology 06/11/23 21:35 Mucosa - Nose SARS-CoV-2, Influenza & RSV (PCR) - Final Imaging Radiology Impression Chest X-Ray 06/11/23 22:20 IMPRESSION: Persistent interstitial thickening in the right infrahilar region and left lower lobe improved since previous exam. No new infiltrates. 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 Shah recently changed chemotherapy agents who presents to the [facility] ED on 06/11/23 with history of as noted new chemotherapeutic agent started the Thursday prior to current presentation with onset following loose stools which she reports are more pronounced whenever she has oral intake with abdominal cramping as well as decreased oral intake but no specific nausea or emesis which persisted with increasing fatigue and malaise however she started to be more tachycardic and had a temperature of 100.5 prompting eventual ED evaluation to be cautious. #1. Neutropenic fever of unclear etiology with recent new chemotherapeutic change with following abdominal cramping and diarrhea with now onset of fever concurrently: Will admit to [facility] telemetry, maintain on Neutropenic precautions, obtain mag and phos level given recent chemotherapy treatments, maintain I&Os, treat with IV vancomycin and IV Zosyn broad-spectrum antibiotic therapy pending cultures. PRN tylenol, anti-emetics, pain regimen. Will request stool enteric and C. difficile testing. Procalcitonin requested. Patient's abdomen is benign with no rebound or guarding and soft thus deferring CT scan at this time but low threshold to obtain if concerns arise. If stool assessments are negative for C. difficile and enteric pathogen's would initiate loperamide at that time. Given patient report of profuse diarrhea with oral intake will allow clears and continue to monitor with advance diet as tolerated. Will maintain on famotidine. Additionally given judicious hydration ongoing will plan repeat chest x-ray in a.m. to assure no developing infiltrate. #2. Acute hyponatremia, hypochloremia, hypovolemic secondary to GI losses as noted: Admission CMP with sodium 124, chloride 90, will continue judicious hydration, repeat CMP in AM. #3. Chronic normocytic anemia: Associated with patient's underlying cancer as noted, admission hemoglobin 11.7 however dehydrated, baseline appears primarily 8-9, will repeat CBC in AM. #4. Metastatic non-small cell Right lung CA: Patient with with metastases to the pancreas and kidney, following with Dr. Shah recently changed chemotherapy agents as noted with then onset of symptoms, continue evaluation as noted above #1, magnesium and phosphorus levels requested, if necessary may consider involvement of patient's oncologist however at this time we will continue current plan of care. #5. Chronic COPD/asthma: Will maintain on oxygen with wean as tolerated to room air, hold home inhalers in the interim transition to ATC budesonide therapy as well as PRN albuterol, HOB, IS parameters. #6. Anxiety and depression: Per current list not on any regimen, encourage continued close and early follow-up given underlying diagnoses patient is high risk. #7. Chronic Kidney Disease Stage II per GFR trending: Admission BUN/Cr 13/0.94, GFR 62, baseline renal function primarily 0.5-0.7, repeat CMP in AM. #8. Former tobacco use: Encourage continued tobacco cessation. #9. DVT prophylaxis: Lovenox. #10. CODE status: Patient does not have healthcare power of commercial attorney or living will in place but she notes Genoveva who is her best friend who is present with her in the ED would be her medical decision-maker if she was unable to do so. Discussed CODE status at length including difference between FULL code, DNR-CCA and DNR-CC status. Following discussions about the differences in these status, requested Full Code status. Advanced Care Planning Face to Face Time: 16 minutes. Charges/Coding Visit Charges Inpatient E&M: 08319 Init Hosp L3 Procedures Hospitalists Procedures: 99857 Advncd Care Plan 30 Min
[2023-06-11 23:43] VITALS: BP 131/60; PULSE 123; RESP 30; TEMP 39.2; O2SAT 91
[2023-06-12] VITALS (14 sets, daily range): BP systolic 96–126; BP diastolic 58–73; PULSE 92–129; RESP 16–38; TEMP 36.2–38.3; O2SAT 92–98; BMI 24.6
[2023-06-12] MEDS: Acetaminophen 325 MG Tablet 650 MG PO (00:10)
[2023-06-12 00:27] LABS: Magnesium 1.9 mg/dL (1.6-2.6); Phosphorus 2.8 mg/dL (2.5-4.9)
[2023-06-12] MEDS: Vancomycin HCl 1,500 MG in 0.9% Normal Saline (500mL Bag) 500 ML 250 MG IV (01:16)
[2023-06-12 02:57] LABS: Bacteria 0 SEEN /hpf (None Seen); Mucous, Urine 0 SEEN /hpf (<or=2+); Squamous Epithelial Cells - UA 0 SEEN /hpf (5-10)
[2023-06-12 03:01] LABS: Color, Urine Amber (Yellow); Glucose, Dipstick Normal (Normal); Ketone-Dipstick 5 mg/dl (Negative); Leukocyte Esterase-Dipstick 25 /ul (Negative); Nitrite-Dipstick Negative (Negative); Occult Blood-Urine 10 /ul (Negative); Protein-Dipstick 15 mg/dl (Negative); Specific Gravity, Urine 1.015 (1.002-1.030); Urine Clarity Clear (Clear); Urine Urobilinogen 1 mg/dl (Normal)
--- NOTE | 2023-06-12 03:05 | PCM.RX.CS ---
Consult Antibiotic Management Pharmacy has been consulted to manage selected antibiotic: Vancomycin Type of Intervention Type of Consult: New start Labs Labs: Sodium 124 mmol/L (136-145) L 06/11/23 21:34 Potassium 4.9 mmol/L (3.5-5.1) 06/11/23 21:34 Chloride 90 mmol/L (98-107) L 06/11/23 21:34 Carbon Dioxide 27.0 mmol/L (21.0-32.0) 06/11/23 21:34 Anion Gap 7 (5-15) 06/11/23 21:34 BUN 13 mg/dL (7-18) 06/11/23 21:34 Creatinine 0.94 mg/dL (0.55-1.02) 06/11/23 21:34 Est GFR (MDRD) Af Amer 75 mL/min (>60) 06/11/23 21:34 Est GFR (MDRD) Non-Af 62 mL/min (>60) 06/11/23 21:34 BUN/Creatinine Ratio 13.8 RATIO (10-20) 06/11/23 21:34 Glucose 121 mg/dL (74-106) H 06/11/23 21:34 Microbiology Microbiology: Microbiology 06/11/23 21:35 Mucosa - Nose SARS-CoV-2, Influenza & RSV (PCR) - Final Dosing Weight Weight used for dosin.1 kg Estimated Creatinine Clearance Estimated Creatinine Clearance: 46.27 Pharmacy Plan for Drug Dosing Pharmacy Plan for Drug Dosing: Pharmacy Service will continue to monitor and adjust dosing as required. 1500 MG GIVEN IN ER, 500MG Q12H AND FOLLOW UP TROUGH PRIOR TO 4TH DOSE Follow-Up Labs Follow-Up Labs: Trough: Vancomycin Date/Time Labs Ordered Labs to be done on [date and time ordered]: 06/12 @ 1300
[2023-06-12 03:47] LABS: Red Blood Cells-Urine 0-5 SEEN /hpf (0-5); Urine Bilirubin Dipstick 1 mg/dL (Negative); White Blood Cells 0-5 SEEN /hpf (0-5)
[2023-06-12 04:33] LABS: M R Staph aureus DNA By PCR POSITIVE (Negative); Probe Check PASS
[2023-06-12] MEDS: 0.9% Normal Saline (1000mL) 1,000 ML 125 ML IV ×2 (05:04→13:09)
[2023-06-12] MEDS: Piperacil/Tazobactam 3.375 GM in 0.9% Normal Saline (50mL MB+) 50 ML IV ×3 (05:49→22:07)
--- NOTE | 2023-06-12 05:55 | RAD_ITS ---
EXAM: XR CHEST, 1 VIEW CLINICAL INDICATION: Hypoxia, fever TECHNIQUE: Frontal view of the chest. COMPARISON: 06/11/2023 FINDINGS: LUNGS AND PLEURAL SPACES: Persistent but improving patchy consolidation in the right middle lobe. No pneumothorax. No effusion. HEART: Unremarkable. Cardiac silhouette not enlarged. MEDIASTINUM: Central airways and mediastinal contour are unremarkable. BONES/JOINTS: Unremarkable. No acute fracture. SOFT TISSUES: Unremarkable. RAD/Chest 1 View (Portable) IMPRESSION: Persistent but improving patchy consolidation in the right middle lobe. Electronically Signed: Suhas Castillo MD at 6:54 EDT ,
[2023-06-12] MEDS: Budesonide Respules 0.5 MG/2 ML AMPUL.NEB. INHALATION ×2 (07:08→19:06)
[2023-06-12 08:13] LABS: Absolute Lymphocyte Count 0.26 X10^3/uL (0.83-4.51); Absolute Neutrophil Count 0.4 X10^3/uL (2.0-7.7); Basophil# 0.03 X10^3/uL; Basophil% 2.5 % (0-1); Hematocrit 32.4 % (37-47); Hemoglobin 10.8 g/dL (12.0-15.0); Lymphocyte # 0.26 X10^3/ul (0.83-4.51); Mean Corp Hgb Conc 33.3 g/dL (32-36); Mean Corpuscular Hgb 31.9 pg (27.0-32.0); Mean Corpuscular Volume 95.6 fL (81-99); Mean Platelet Vol. 9.4 fl (6.2-12.0); Monocyte# 0.44 X10^3/uL; Monocyte% 37.3 % (0-10); NRBC Flagged by Analyzer 0 % (0-5); Neutrophil # 0.44 X10^3/uL (2.7-7.7); Neutrophil % 37.4 % (47-70); POSITIVE COUNT YES; POSITIVE DIFFERENTIAL YES; POSITIVE MORPHOLOGY YES; Platelet Count 224 K/mm3 (150-450); RBC Distribution Width CV 13.7 % (11.6-14.6); RBC Distribution Width SD 48.5 fl (35.1-43.9); Red Blood Count 3.39 M/mm3 (4.2-5.4)
[2023-06-12 08:16] LABS: Differential Indicated SCAN CRITERIA MET; White Blood Count 1.2 K/mm3 (4.4-11.0)
[2023-06-12] MEDS: Enoxaparin 40 MG/0.4 ML Syringe SC (08:42)
[2023-06-12] MEDS: Menthol/Lanolin/Calamine/Znox 113 GM Tube 1 APPLIC TOPICAL ×2 (08:42→22:06)
[2023-06-12] MEDS: Folic Acid 1 MG Tablet PO (08:42)
[2023-06-12] MEDS: Famotidine 20 MG Tablet PO (08:42)
[2023-06-12 10:17] LABS: ALB/GLOB Ratio 0.5 RATIO (0.9-2.4); AST(SGOT) 21 U/L (15-37); Alanine Aminotransfer ALT/SGPT 17 U/L (13-56); Albumin, Serum 1.8 g/dL (3.2-5.0); Alkaline Phosphatase 43 U/L (45-117); Anion Gap 9 (5-15); BUN 16 mg/dL (7-18); BUN/Creat Ratio 18.7 RATIO (10-20); Calcium,Total 8.2 mg/dL (8.5-10.1); Chloride 97 mmol/L (98-107); Creatinine, Serum 0.86 mg/dL (0.55-1.02); EST Glomerular Filtration Rate 69 mL/min (>60); Est Glom Filt Rate - Afr Amer 84 mL/min (>60); Estimated Creatinine Clearance 48.84 ml/min; Globulin 3.5 g/dL (2.2-4.2); Glucose 106 mg/dL (74-106); Potassium 4.2 mmol/L (3.5-5.1); Protein, Total 5.3 g/dL (6.4-8.2); Sodium Level 128 mmol/L (136-145)
[2023-06-12 10:56] LABS: Differential Comment SCANNED
--- NOTE | 2023-06-12 12:23 | CASEMGMT ---
DEVANTE ALVARADO Readmission Note Previous Admission: 05/24/23-05/26/23 Diagnosis: AE COPD with multifocal pna DC Disposition: Home with family support Current Admission: Admitted 06/11/23 Current Diagnosis: neutropenic fever Pt with lung cancer with mets to pancreas and kidney. Pt receiving chemo every 3 wks and had a new chemo that started last Thursday. Pt had been admitted recently for AE COPD and pna. Pt was dc'd on 2 days of prednisone and augmentin. Pt reports she did complete this course. She states she has been taking her medications as ordered and followed up with Dr. Shah. Pt was dc'd without the need for supplemental oxygen. Pt presented to ER with N/V/D. She is placed on antibiotics, stool studies ordered and blood cultures are pending. Pt report she has a walker at home. She states she has very good family support. She denies need for any services in the home. DEVANTE ALVARADO to follow. Pt is out of area for [facility], nor does pt want any services. DC Plan: Home
[2023-06-12] MEDS: Vancomycin IV 500 MG/100 ML BAG 100 MG IV (13:09)
--- NOTE | 2023-06-12 13:59 | PN_ITS ---
Subjective Subjective Patient seen and examined. She complained of feeling tired. She denied any fever, any chills, any nausea or vomiting, any belly pain or any other symptoms. Review of systems otherwise negative. Blood cultures are positive for gram- positive cocci. She is on IV vancomycin and Zosyn. Objective Data Objective Data Vital Signs: Vital Signs Temp Pulse Resp BP Pulse Ox O2 Del Method O2 Flow Rate 97.1 F L 104 H 16 126/73 H 94 Room Air 2 06/12/23 11:23 06/12/23 12:16 06/12/23 11:23 06/12/23 11:23 06/12/23 11:23 06/12/23 11:23 06/12/23 07:09 Oxygen Flow Rate (L/min) 2 Oxygen Delivery Method Room Air Weight: 130 lb 4.691 oz Body Mass Index (BMI) 24.6 Intake & Output: Intake and Output for Last 24 Hours 06/10/23 06/11/23 06/12/23 23:59 23:59 23:59 Intake Total 1000 / 1000 1886.25 / 1886.25 Output Total 200 / 200 Balance 1000 / 1000 1686.25 / 1686.25 Lab / Micro Data 06/12/23 08:04 06/12/23 08:04 Labs: Laboratory Results - last 24 hr 06/11/23 21:34: WBC 0.7 L*, RBC 3.66 L, Hgb 11.7 L, Hct 35.3 L, MCV 96.4, MCH 32.0, MCHC 33.1, RDW Std Deviation 48.6 H, RDW Coeff of Francie 13.5, Plt Count 281, MPV 9.1, Neut % (Auto) Not Reportable, Absolute Neuts (auto) 0.3 L, Absolute Lymphs (auto) 0.08 L, Total Counted 100, Neutrophils % (Manual) 34 L, Band Neutrophils % 2, Lymphocytes % (Manual) 12 L, Monocytes % (Manual) 34 H, Metamyelocytes % 2 H, Myelocytes % 16 H, Differential Comment SEE COMMENTS, Diff Path Review May foll, Platelet Estimate ADEQUATE, RBC Morphology N CHROM, Anisocytosis 1+, Macrocytosis 1+, Ovalocytes RARE, Sodium 124 L, Potassium 4.9, Chloride 90 L, Carbon Dioxide 27.0, Anion Gap 7, BUN 13, Creatinine 0.94, Estim Creat Clear Calc 46.27, Est GFR (MDRD) Af Amer 75, Est GFR (MDRD) Non-Af 62, BUN/Creatinine Ratio 13.8, Glucose 121 H, Calcium 9.1, Total Bilirubin 1.20 H, AST 41 H, ALT 23, Alkaline Phosphatase 53, Total Protein 6.6, Albumin 2.5 L, Globulin 4.1, Albumin/Globulin Ratio 0.6 L, Lipase 12 L 06/11/23 23:44: Phosphorus 2.8, Magnesium 1.9 06/11/23 23:50: Procalcitonin 2.40 H 06/12/23 02:30: Urine Color Yu, Urine Clarity Clear, Urine pH 5.0, Ur Specific Casar 1.015, Urine Protein 15 H, Urine Glucose (UA) Normal, Urine Ketones 5 H, Urine Occult Blood 10 H, Urine Nitrite Negative, Urine Bilirubin 1 H, Urine Urobilinogen 1 H, Ur Leukocyte Esterase 25 H, Urine RBC 0-5 SEEN, Urine WBC 0-5 SEEN, Ur Squamous Epith Cells 0 SEEN, Urine Bacteria 0 SEEN, Urine Mucus 0 SEEN, MRSA (PCR) POSITIVE H 06/12/23 08:04: WBC 1.2 L*, RBC 3.39 L, Hgb 10.8 L, Hct 32.4 L, MCV 95.6, MCH 31.9, MCHC 33.3, RDW Std Deviation 48.5 H, RDW Coeff of Francie 13.7, Plt Count 224, MPV 9.4, Immature Gran % (Auto) 0.800, Neut % (Auto) 37.4 L, Lymph % (Auto) 22.0, [place] % (Auto) 37.3 H, Eos % (Auto) 0.0, Baso % (Auto) 2.5 H, Absolute Neuts (auto) 0.4 L, Absolute Lymphs (auto) 0.26 L, Nucleated RBC % 0, Differential Comment SCANNED, Diff Path Review July, Sodium 128 L, Potassium 4.2, Chloride 97 L, Carbon Dioxide 22.0, Anion Gap 9, BUN 16, Creatinine 0.86, Estim Creat Clear Calc 48.84, Est GFR (MDRD) Af Amer 84, Est GFR (MDRD) Non-Af 69, BUN/Creatinine Ratio 18.7, Glucose 106, Calcium 8.2 L, Total Bilirubin 1.10 H, AST 21, ALT 17, Alkaline Phosphatase 43 L, Total Protein 5.3 L, Albumin 1.8 L , Globulin 3.5, Albumin/Globulin Ratio 0.5 L Micro: Microbiology 06/11/23 22:03 Blood Culture (Wb) - No Site/Description Given Blood Culture - Preliminary 06/12/23 01:37 Mucosa - Nasopharyngeal Respiratory Panel (PCR) - Final 06/12/23 02:35 Urine Catheter - Catheter Streptococcus pneumoniae Antigen (M - Final 06/12/23 02:35 Urine Catheter - Catheter Legionella Antigen - Final 06/11/23 21:35 Mucosa - Nose SARS-CoV-2, Influenza & RSV (PCR) - Final Radiography Diagnostic Testing: Radiology Impression Chest X-Ray 06/11/23 22:20 IMPRESSION: Persistent interstitial thickening in the right infrahilar region and left lower lobe improved since previous exam. No new infiltrates. Electronically Signed: Reinaldo Smart MD at 22:51 EDT , Chest X-Ray 06/12/23 05:55 IMPRESSION: Persistent but improving patchy consolidation in the right middle lobe. Electronically Signed: Suhas Castillo MD at 6:54 EDT , Physical Exam Const alert, oriented x3 and no apparent distress General Appearance: cooperative and well developed HEENT normocephalic, head/scalp atraumatic, moist oral mucous membranes and oropharynx normal Eyes PERRL and EOMs intact bilaterally Neck no lymphadenopathy and supple Lymph Lymphatic: no lymphadenopathy noted and no lymphedema noted Resp normal respiratory effort, normal air movement and clear to auscultation bilaterally Cardio regular rate, regular rhythm, S1 normal heart sound, S2 normal heart sound and no murmurs GI normal to inspection, nondistended, normoactive bowel sounds, soft to palpation, non-tender and non-distended Extremity normal capillary refill, no clubbing, cyanosis or edema and no calf tenderness General Extremity: no tenderness to palpation of joints or extremities Skin General Skin Exam: no breakdown Neuro CN's II-XII intact bilaterally, no focal motor deficits, no sensory deficits noted and deep tendon reflexes 2+ bilaterally Motor Exam: strength 5/5 throughout and general weakness Psych thought process normal, cooperative and affect normal Appearance: appropriate Assessment & Plan Assessment/Plan (1) Neutropenic fever: (2) Hyponatremia: (3) Diarrhea: PLAN: Plan #Neutropenic fever due to gram negative bacteremia * on chemotherapy for metastatic cancer * on IV vancomycin and zosyn * blood cultures positive for gram positive cocci (1/2 samples) * ID consulted * MRSA PCR positive * will get 2D echo * #Hyponatremia: likely likely due to diarrhea. hydrating with IVF. Will monitor. #Leucopenia * wbc s 1.2 toay. Hb is 10.8 * wbc was 0.7 on admission. * platelets are 224. 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 Cr is 0.86. #COPD: not in exacerbation. Breathing treatment with bronchodilators. DVT prophylaxis: on lovenox Charges/Coding Visit Charges Inpatient E&M: 38766 Subs Hosp L3
--- NOTE | 2023-06-12 14:20 | ECHOD_ITS ---
Reason For Study: Emboli Procedure This was a 2D Doppler, Color Flow transthoracic echocardiogram. The study was technically difficult. Exam performed portable in patient room. Left Ventricle Normal left ventricle. The estimated ejection fraction is 55-60 %. Right Ventricle Normal right ventricle. Normal systolic function. Atria Normal left atrium. Normal right atrium. Mitral Valve The mitral valve is structurally normal. No prolapse or stenosis seen. Trivial mitral valve insufficiency. Tricuspid Valve Normal tricuspid valve. Aortic Valve Trisinus/trileaflet aortic valve. Pulmonic Valve The pulmonic valve is not well visualized. Great Vessels Normal aortic root. Pericardium/Pleural No pericardial effusion. MMode/2D Measurements & Calculations LVIDd: 4.2 cm IVSd: 0.94 cm LA dimension: 3.3 cm LVIDs: 3.2 cm LVPWd: 0.85 cm FS: 23.7 % LAV(MOD-bp): 35.5 ml LA A4 area: 13.1 cm2 LAV(MOD-bp) Indexed: 22.6 ml/m2 LAV(MOD-sp2): 32.3 ml LAV(MOD-sp4): 32.4 ml Time Measurements MV dec time: 0.19 sec Doppler Measurements & Calculations MV E max deni: 46.0 cm/sec Lat Peak E' Deni: 9.9 cm/sec Med Peak E' Deni: 7.1 cm/sec MV A max deni: 77.8 cm/sec E/E' lat: 4.6 E/E' med: 6.5 MV E/A: 0.59 MV dec slope: 239.5 cm/sec2 Ao V2 max: 114.8 cm/sec LV V1 max: 103.4 cm/sec Ao max P.3 mmHg LV V1 max P.3 mmHg Ao V2 mean: 72.7 cm/sec LV V1 mean P.6 mmHg Ao mean P.5 mmHg LV V1 mean: 76.4 cm/sec Ao V2 VTI: 15.0 cm LV V1 VTI: 12.9 cm AV (velocity ratio): 0.86 PA V2 max: 89.8 cm/sec TR max deni: 228.4 cm/sec TR max P.9 mmHg ECHO/Echo Complete Interpretation Summary The estimated ejection fraction is 55-60 %. Ordering Physician: Graciela Quijano Performed By: Dante Moe RCS
--- NOTE | 2023-06-12 15:01 | PCM.CONS.GEN ---
Assessment & Plan Assessment/Plan (1) Neutropenic fever: PLAN: No new cough or dyspnea. On RA here. Fever has resolved. ANC slightly better, 400 today. No port/picc in place, will stop vanc. Cont zosyn. If remains afebrile and ANC is over 1000, plan on discharge home with po augmentin 875mg bid to complete 7-10 days total of abx. Will follow, thank you. (2) Non-small cell cancer of right lung: HPI Consult Data Date of Consult: 06/12/23 HPI Narrative Reason for Consultation: neutropenic fever HPI Narrative: MARIAM KOCH, is a 72 F with stage 4 NSCLC, last chemo a week ago via peripheral. No port or picc in place. No sick contacts. Over past few days, developed progressive fatigue, some loose stool, then fever and chills. No abd pain, no oral lesions, no vision changes, no dysuria. Admitted on vanc/zosyn with neutropenic fever. Feeling better. Full ROS performed and neg except as noted above. [facility] Medical History Adenocarcinoma of lung Anxiety and depression Asthma-COPD overlap syndrome BMI 23.0-23.9, adult COPD (chronic obstructive pulmonary disease) Former smoker History of echocardiogram History of stress test Wears dentures Wears glasses Home Medications cholecalciferol (vitamin D3) 250 mcg (10,000 unit) capsule 250 mcg PO DAILY supplement 08/05/22 [History Last Taken 05/10/23] mecobalamin (vitamin B12) 2,500 mcg chewable tablet 2,500 mcg PO DAILY supplement 08/05/22 [History Last Taken 05/10/23] Nebulizer machine #1 ea 08/29/22 [Rx Last Taken Unknown] albuterol sulfate 2.5 mg/3 mL (0.083 %) solution for nebulization 2.5 mg (3 mL) inhalation Q4H PRN Sob &/Or Wheezing #180 mL 08/29/22 [Rx Last Taken Unknown] albuterol sulfate 90 mcg/actuation aerosol inhaler (Ventolin HFA) 2 puff inhalation Q4H PRN shortness of breath or wheezing #18 grams 08/29/22 [Rx Last Taken Unknown] fluticasone fur. 200 mcg-umeclid 62.5 mcg-vilant 25 mcg inhalat.powder (Trelegy Ellipta) 1 inh inhalation DAILY breathing #3 ea 11/17/22 [Rx Last Taken 05/11/23] folic acid 1 mg tablet 1 mg PO DAILY vit 05/24/23 [History Last Taken Unknown] alprazolam 0.5 mg tablet 0.5 mg PO BID PRN PRN anxiety 06/12/23 [History Last Taken Unknown] guaifenesin 1,200 mg tablet, extended release 12 hr (Mucus Relief ER) 1,200 mg PO QHS MUCOUS 06/12/23 [History Last Taken Unknown] hydrocodone-acetaminophen 5-325mg 5mg-325mg 1 tab PO Q6H PRN PAIN 06/12/23 [History Last Taken Unknown] ondansetron 8 mg disintegrating tablet 8 mg PO Q8H PRN NAUSEA 06/12/23 [History Last Taken Unknown] Allergy/AdvReac Type Severity Reaction Status Date / Time No Known Allergies Allergy Verified 06/11/23 20:16 Family History Father Asthma Son Asthma Mother Breast cancer Uncle Diabetes Type 1 Surgical History H/O tubal ligation Hx of tonsillectomy Social History (Updated 06/12/23 @ 01:[address] Rosalina Villanueva MD) household members: none Smoking Status: Former smoker quit date: 03/23/22 Tobacco: How many years used: 50 how long ago did patient quit smokin03/2022 alcohol intake: never substance use type: does not use caffeine: Yes Type: coffee Number of servings: 2 Physical Exam Const alert, oriented x3 and no apparent distress General Appearance: cooperative HEENT normocephalic and head/scalp atraumatic HEENT Narrative: No thrush Eyes PERRL and EOMs intact bilaterally Neck supple and No nodes Resp normal air movement and clear to auscultation bilaterally Cardio regular rate and regular rhythm GI soft to palpation, non-tender and non-distended Extremity General Extremity: Negative for edema Skin no rashes or lesions noted Neuro CN's II-XII intact bilaterally Lab / Micro Data Attestation: I reviewed the patient's lab results. 06/12/23 08:04 06/12/23 08:04 Labs: Laboratory Results - last 24 hr 06/11/23 21:34: WBC 0.7 L*, RBC 3.66 L, Hgb 11.7 L, Hct 35.3 L, MCV 96.4, MCH 32.0, MCHC 33.1, RDW Std Deviation 48.6 H, RDW Coeff of Francie 13.5, Plt Count 281, MPV 9.1, Neut % (Auto) Not Reportable, Absolute Neuts (auto) 0.3 L, Absolute Lymphs (auto) 0.08 L, Total Counted 100, Neutrophils % (Manual) 34 L, Band Neutrophils % 2, Lymphocytes % (Manual) 12 L, Monocytes % (Manual) 34 H, Metamyelocytes % 2 H, Myelocytes % 16 H, Differential Comment SEE COMMENTS, Diff Path Review July, Platelet Estimate ADEQUATE, RBC Morphology N CHROM, Anisocytosis 1+, Macrocytosis 1+, Ovalocytes RARE, Sodium 124 L, Potassium 4.9, Chloride 90 L, Carbon Dioxide 27.0, Anion Gap 7, BUN 13, Creatinine 0.94, Estim Creat Clear Calc 46.27, Est GFR (MDRD) Af Amer 75, Est GFR (MDRD) Non-Af 62, BUN/Creatinine Ratio 13.8, Glucose 121 H, Calcium 9.1, Total Bilirubin 1.20 H, AST 41 H, ALT 23, Alkaline Phosphatase 53, Total Protein 6.6, Albumin 2.5 L, Globulin 4.1, Albumin/Globulin Ratio 0.6 L, Lipase 12 L 06/11/23 23:44: Phosphorus 2.8, Magnesium 1.9 06/11/23 23:50: Procalcitonin 2.40 H 06/12/23 02:30: Urine Color Yu, Urine Clarity Clear, Urine pH 5.0, Ur Specific [place] 1.015, Urine Protein 15 H, Urine Glucose (UA) Normal, Urine Ketones 5 H, Urine Occult Blood 10 H, Urine Nitrite Negative, Urine Bilirubin 1 H, Urine Urobilinogen 1 H, Ur Leukocyte Esterase 25 H, Urine RBC 0-5 SEEN, Urine WBC 0-5 SEEN, Ur Squamous Epith Cells 0 SEEN, Urine Bacteria 0 SEEN, Urine Mucus 0 SEEN, MRSA (PCR) POSITIVE H 06/12/23 08:04: WBC 1.2 L*, RBC 3.39 L, Hgb 10.8 L, Hct 32.4 L, MCV 95.6, MCH 31.9, MCHC 33.3, RDW Std Deviation 48.5 H, RDW Coeff of Francie 13.7, Plt Count 224, MPV 9.4, Immature Gran % (Auto) 0.800, Neut % (Auto) 37.4 L, Lymph % (Auto) 22.0, Phelps % (Auto) 37.3 H, Eos % (Auto) 0.0, Baso % (Auto) 2.5 H, Absolute Neuts (auto) 0.4 L, Absolute Lymphs (auto) 0.26 L, Nucleated RBC % 0, Differential Comment SCANNED, Diff Path Review July, Sodium 128 L, Potassium 4.2, Chloride 97 L, Carbon Dioxide 22.0, Anion Gap 9, BUN 16, Creatinine 0.86, Estim Creat Clear Calc 48.84, Est GFR (MDRD) Af Amer 84, Est GFR (MDRD) Non-Af 69, BUN/Creatinine Ratio 18.7, Glucose 106, Calcium 8.2 L, Total Bilirubin 1.10 H, AST 21, ALT 17, Alkaline Phosphatase 43 L, Total Protein 5.3 L, Albumin 1.8 L, Globulin 3.5, Albumin/Globulin Ratio 0.5 L Micro: Microbiology 06/11/23 22:03 Blood Culture (Wb) - No Site/Description Given Blood Culture - Preliminary 06/12/23 01:37 Mucosa - Nasopharyngeal Respiratory Panel (PCR) - Final 06/12/23 02:35 Urine Catheter - Catheter Streptococcus pneumoniae Antigen (M - Final 06/12/23 02:35 Urine Catheter - Catheter Legionella Antigen - Final 06/11/23 21:35 Mucosa - Nose SARS-CoV-2, Influenza & RSV (PCR) - Final Imaging Radiology Impression Chest X-Ray 06/11/23 22:20 IMPRESSION: Persistent interstitial thickening in the right infrahilar region and left lower lobe improved since previous exam. No new infiltrates. Electronically Signed: Reinaldo Smart MD at 22:51 EDT , Chest X-Ray 06/12/23 05:55 IMPRESSION: Persistent but improving patchy consolidation in the right middle lobe. Electronically Signed: Suhas Castillo MD at 6:54 EDT ,
[2023-06-13 00:03] VITALS: BP 101/62; PULSE 113; RESP 18; TEMP 36.6; O2SAT 95
[2023-06-13] MEDS: Vancomycin 125 MG/5 ML Susp PO.SYRINGE PO ×4 (00:04→17:44)
[2023-06-13] MEDS: 0.9% Normal Saline (250mL Bag) 250 ML 15 ML IV (00:06)
[2023-06-13 05:12] VITALS: BMI 24.5
[2023-06-13 05:31] VITALS: BP 102/65; PULSE 115; RESP 22; TEMP 37.1; O2SAT 96
[2023-06-13] MEDS: Piperacil/Tazobactam 3.375 GM in 0.9% Normal Saline (50mL MB+) 50 ML IV ×3 (05:34→21:53)
[2023-06-13] MEDS: Acetaminophen 325 MG Tablet 650 MG PO (05:40)
[2023-06-13 08:36] LABS: Absolute Lymphocyte Count 0.48 X10^3/uL (0.83-4.51); Absolute Neutrophil Count 4.8 X10^3/uL (2.0-7.7); Basophil# 0.01 X10^3/uL; Basophil% 0.1 % (0-1); Eosinophil# 0.01 X10^3/uL; Eosinophils% 0.1 % (0-5); Hemoglobin 12.8 g/dL (12.0-15.0); Lymphocyte # 0.48 X10^3/ul (0.83-4.51); Lymphocyte % 6.3 % (19-41); Mean Corp Hgb Conc 33.7 g/dL (32-36); Mean Corpuscular Hgb 32.1 pg (27.0-32.0); Mean Corpuscular Volume 95.2 fL (81-99); Mean Platelet Vol. 10.1 fl (6.2-12.0); Monocyte# 2.17 X10^3/uL; Monocyte% 28.6 % (0-10); NRBC Flagged by Analyzer 0.4 % (0-5); Neutrophil % 63.3 % (47-70); POSITIVE DIFFERENTIAL YES; POSITIVE MORPHOLOGY YES; Platelet Count 272 K/mm3 (150-450); Red Blood Count 3.99 M/mm3 (4.2-5.4); White Blood Count 7.6 K/mm3 (4.4-11.0)
[2023-06-13 08:40] LABS: Differential Indicated SCAN CRITERIA MET
[2023-06-13 08:56] LABS: Anion Gap 10 (5-15); BUN 22 mg/dL (7-18); BUN/Creat Ratio 21.8 RATIO (10-20); Calcium,Total 7.6 mg/dL (8.5-10.1); Chloride 98 mmol/L (98-107); Creatinine, Serum 1.01 mg/dL (0.55-1.02); EST Glomerular Filtration Rate 57 mL/min (>60); Est Glom Filt Rate - Afr Amer 69 mL/min (>60); Estimated Creatinine Clearance 41.59 ml/min; Glucose 102 mg/dL (74-106); Potassium 4.7 mmol/L (3.5-5.1); Sodium Level 126 mmol/L (136-145)
[2023-06-13] MEDS: Enoxaparin 40 MG/0.4 ML Syringe SC (09:39)
[2023-06-13] MEDS: Famotidine 20 MG Tablet PO (09:39)
[2023-06-13] MEDS: Folic Acid 1 MG Tablet PO (09:39)
[2023-06-13] MEDS: Menthol/Lanolin/Calamine/Znox 113 GM Tube 1 APPLIC TOPICAL ×4 (09:41→21:53)
[2023-06-13 09:42] VITALS: BP 112/69; PULSE 112; RESP 18; TEMP 36.1; O2SAT 97
[2023-06-13 10:13] LABS: Differential Comment SCANNED; Toxic Granulation 1+
[2023-06-13 10:34] VITALS: PULSE 91; RESP 18; O2SAT 97
[2023-06-13] MEDS: Budesonide Respules 0.5 MG/2 ML AMPUL.NEB. INHALATION (10:36)
--- NOTE | 2023-06-13 11:53 | PN_ITS ---
Subjective Subjective Patient seen and examined. Her friend Genoveva was by her bedside. She had no active complaints. She says her diarrhea is improving. Review of systems is otherwise negative. She did test positive for C Diff yesterday so was started on oral vancomycin. Review of systems is otherwise negative. Objective Data Objective Data Vital Signs: Vital Signs Temp Pulse Resp BP Pulse Ox O2 Del Method O2 Flow Rate 97.0 F L 91 18 112/69 97 Nasal Cannula 2 06/13/23 09:42 06/13/23 10:34 06/13/23 10:34 06/13/23 09:42 06/13/23 10:34 06/13/23 10:34 06/13/23 10:34 Oxygen Flow Rate (L/min) 2 Oxygen Delivery Method Nasal Cannula Weight: 130 lb 4.691 oz Body Mass Index (BMI) 24.5 Intake & Output: Intake and Output for Last 24 Hours 06/11/23 06/12/23 06/13/23 23:59 23:59 23:59 Intake Total 1000 / 1000 3325.83 / 3325.83 104.17 / 104.17 Output Total 200 / 200 Balance 1000 / 1000 3125.83 / 3125.83 104.17 / 104.17 Lab / Micro Data 06/13/23 08:17 06/13/23 08:17 Labs: Laboratory Results - last 24 hr 06/12/23 02:30: Urine Color Yu, Urine Clarity Clear, Urine pH 5.0, Ur Specific [place] 1.015, Urine Protein 15 H, Urine Glucose (UA) Normal, Urine Ketones 5 H, Urine Occult Blood 10 H, Urine Nitrite Negative, Urine Bilirubin 1 H, Urine Urobilinogen 1 H, Ur Leukocyte Esterase 25 H, Urine RBC 0-5 SEEN, Urine WBC 0-5 SEEN, Ur Squamous Epith Cells 0 SEEN, Urine Bacteria 0 SEEN, Urine Mucus 0 SEEN 06/13/23 08:17: WBC 7.6, RBC 3.99 L, Hgb 12.8, Hct 38.0, MCV 95.2, MCH 32.1 H, MCHC 33.7, RDW Std Deviation 49.0 H, RDW Coeff of Francie 14.0, Plt Count 272, MPV 10.1, Immature Gran % (Auto) 1.600 H, Neut % (Auto) 63.3, Lymph % (Auto) 6.3 L, [place] % (Auto) 28.6 H, Eos % (Auto) 0.1, Baso % (Auto) 0.1, Absolute Neuts (auto) 4.8, Absolute Lymphs (auto) 0.48 L, Nucleated RBC % 0.4, Differential Comment SCANNED, Diff Path Review May foll, Toxic Granulation 1+, Sodium 126 L, Potassium 4.7, Chloride 98, Carbon Dioxide 18.0 L, Anion Gap 10, BUN 22 H, Creatinine 1.01, Estim Creat Clear Calc 41.59, Est GFR (MDRD) Af Amer 69, Est GFR (MDRD) Non-Af 57 L, BUN/Creatinine Ratio 21.8 H, Glucose 102, Calcium 7.6 L Micro: Microbiology 06/11/23 16:18 Stool Stool Lactoferrin - Final 06/11/23 16:18 Stool Enteric Bacteriology - Final 06/11/23 16:18 Stool C. difficile GDH Antigen & Toxins - Final Toxigenic C. difficile 06/11/23 16:18 Stool Clostridioides difficile (PCR) - Final 06/11/23 22:03 Blood Culture (Wb) - No Site/Description Given Blood Culture - Preliminary Gram positive april 06/12/23 01:37 Mucosa - Nasopharyngeal Respiratory Panel (PCR) - Final 06/12/23 02:35 Urine Catheter - Catheter Streptococcus pneumoniae Antigen (M - Final 06/12/23 02:35 Urine Catheter - Catheter Legionella Antigen - Final 06/11/23 21:35 Mucosa - Nose SARS-CoV-2, Influenza & RSV (PCR) - Final Physical Exam Const alert, oriented x3 and no apparent distress General Appearance: cooperative and well developed HEENT normocephalic, head/scalp atraumatic, moist oral mucous membranes and oropharynx normal Eyes PERRL and EOMs intact bilaterally Neck no lymphadenopathy and supple Lymph Lymphatic: no lymphadenopathy noted and no lymphedema noted Resp normal respiratory effort, normal air movement and clear to auscultation bilaterally Cardio regular rate, regular rhythm, S1 normal heart sound, S2 normal heart sound and no murmurs GI normal to inspection, nondistended, normoactive bowel sounds, soft to palpation, non-tender and non-distended Extremity normal capillary refill, no clubbing, cyanosis or edema and no calf tenderness General Extremity: no tenderness to palpation of joints or extremities Skin General Skin Exam: no breakdown Neuro CN's II-XII intact bilaterally, no focal motor deficits, no sensory deficits noted and deep tendon reflexes 2+ bilaterally Motor Exam: strength 5/5 throughout and general weakness Psych thought process normal, cooperative and affect normal Appearance: appropriate Assessment & Plan Assessment/Plan (1) Neutropenic fever: (2) Hyponatremia: (3) Diarrhea: PLAN: Plan #Neutropenic fever due to gram negative bacteremia * on chemotherapy for metastatic cancer * on IV vancomycin and zosyn * blood cultures now showing gram positive rods. * ID on board. * MRSA PCR positive * 2D echo done, read is pending * #C Diff infection * Was admitted with diarrhea and C. difficile screen done was positive for C. difficile. * Currently on oral vancomycin. * #Hyponatremia: likely likely due to diarrhea. Sodium is further down to 126 today. Will continue hydration with fluids and monitor. #Leucopenia * Resolved * WBC is up to 7.6 today. Platelets are normal and hemoglobin is 12.8. Will monitor. 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 #COPD: not in exacerbation. Breathing treatment with bronchodilators. DVT prophylaxis: on lovenox Charges/Coding Visit Charges Inpatient E&M: 08973 Subs Hosp L2
[2023-06-13] MEDS: 0.9% Normal Saline (1000mL) 1,000 ML 125 ML IV ×2 (12:44→20:13)
[2023-06-13 14:27] VITALS: BP 135/76; PULSE 110; RESP 18; TEMP 36.4; O2SAT 97
[2023-06-13] MEDS: ALPRAZolam 0.5 MG Tablet PO (17:44)
[2023-06-13 20:30] VITALS: BP 122/74; PULSE 114; RESP 18; TEMP 36.4; O2SAT 97
[2023-06-14] VITALS (43 sets, daily range): BP systolic 47–151; BP diastolic 19–120; PULSE 80–128; RESP 0–34; TEMP 35.1–36.6; O2SAT 46–99; BMI 24.5
[2023-06-14] MEDS: ALPRAZolam 0.5 MG Tablet PO ×2 (00:46→06:03)
[2023-06-14] MEDS: Vancomycin 125 MG/5 ML Susp PO.SYRINGE PO ×3 (00:46→12:30)
[2023-06-14] MEDS: 0.9% Normal Saline (1000mL) 1,000 ML 125 ML IV (05:23)
[2023-06-14] MEDS: Piperacil/Tazobactam 3.375 GM in 0.9% Normal Saline (50mL MB+) 50 ML IV ×2 (05:23→14:51)
[2023-06-14 06:50] LABS: Absolute Neutrophil Count 14.4 X10^3/uL (2.0-7.7); Basophil# 0.02 X10^3/uL; Basophil% 0.1 % (0-1); Hematocrit 49.1 % (37-47); Hemoglobin 15.7 g/dL (12.0-15.0); Lymphocyte % 5.4 % (19-41); Mean Corpuscular Hgb 32.3 pg (27.0-32.0); Mean Platelet Vol. 10.4 fl (6.2-12.0); Monocyte# 4.32 X10^3/uL; Monocyte% 19.4 % (0-10); NRBC Flagged by Analyzer 6.6 % (0-5); Neutrophil # 14.35 X10^3/uL (2.7-7.7); Neutrophil % 64.3 % (47-70); POSITIVE COUNT YES; POSITIVE DIFFERENTIAL YES; POSITIVE MORPHOLOGY YES; Platelet Count 377 K/mm3 (150-450); RBC Distribution Width CV 14.6 % (11.6-14.6); RBC Distribution Width SD 54.5 fl (35.1-43.9); Red Blood Count 4.86 M/mm3 (4.2-5.4); White Blood Count 22.3 K/mm3 (4.4-11.0)
[2023-06-14 06:59] LABS: Differential Indicated SCAN CRITERIA MET
[2023-06-14 07:36] LABS: Anion Gap 14 (5-15); BUN 31 mg/dL (7-18); BUN/Creat Ratio 21.5 RATIO (10-20); Calcium,Total 7.7 mg/dL (8.5-10.1); Chloride 103 mmol/L (98-107); Creatinine, Serum 1.44 mg/dL (0.55-1.02); EST Glomerular Filtration Rate 38 mL/min (>60); Est Glom Filt Rate - Afr Amer 46 mL/min (>60); Estimated Creatinine Clearance 29.15 ml/min; Glucose 121 mg/dL (74-106); Potassium 5.6 mmol/L (3.5-5.1); Sodium Level 128 mmol/L (136-145)
[2023-06-14] MEDS: Etomidate 20 MG/10 ML Vial IV (08:34)
--- NOTE | 2023-06-14 08:35 | NURSING ---
Patient transferred emergently from [facility] for intubation Etomidate 20mg IV given at 0835 Patient successfully intubated at 0835 ETT size 7.5, 25lip- positive color change and equal breath sounds bilateral CXR done- ETT pulled back to 21cm lip 0930 -Central line placed by Dr. Gipson
[2023-06-14] MEDS: Norepinephrine 8 MG in 0.9% Normal Saline (250mL Bag) 242 ML 9.4 MG CONT INF (08:45)
[2023-06-14] MEDS: Atropine Sulfate 1 MG/10 ML Syringe IV ×2 (08:55→09:02)
[2023-06-14] MEDS: 0.9% Normal Saline (1000mL) 1,000 ML 999 ML IV (09:00)
[2023-06-14] MEDS: Phenylephrine 1 MG/10 ML SYRINGE IV (09:01)
--- NOTE | 2023-06-14 09:15 | RAD_ITS ---
EXAM: XR ABDOMEN, 1 VIEW CLINICAL INDICATION: OGT placement TECHNIQUE: Frontal supine view of the abdomen/pelvis. COMPARISON: Chest radiograph subsequently on the same date. CT abdomen and pelvis, 05/12/2023 FINDINGS: LOWER THORAX: Ill-defined opacities in the bibasilar lungs perhaps evidence of atelectasis or pneumonia. GASTROINTESTINAL TRACT: Gaseous distention of bowel loops in the upper abdomen. ORGANS: Normal as visualized. No organomegaly. No abnormal calcifications. BONES/JOINTS: No acute pathology. SOFT TISSUES: No acute pathology. TUBES, LINES AND DEVICES: At the time of this examination, the endotracheal tube appears to extend into the right mainstem bronchus, subsequently retracted. The enteric tube tip and side-port well below the level of the GE junction. Right IJ venous catheter overlying the SVC. RAD/Abdomen Single View (Portable) IMPRESSION: 1. At the time of this examination, the endotracheal tube appears to extend into the right mainstem bronchus, subsequently retracted. 2. Ill-defined opacities in the bibasilar lungs perhaps evidence of atelectasis or pneumonia. 3. The enteric tube tip and side-port well below the level of the GE junction. 4. Gaseous distention of bowel loops in the upper abdomen. Electronically Signed: Jonatan Rivera DO at 10:33 EDT ,
--- NOTE | 2023-06-14 09:15 | RAD_ITS ---
EXAM: XR CHEST, 1 VIEW CLINICAL INDICATION: ETT placement TECHNIQUE: Frontal view of the chest. COMPARISON: 06/12/2023 FINDINGS: LUNGS AND PLEURAL SPACES: Patchy pulmonary opacities may be atelectasis or pneumonia. No pneumothorax. No effusion. HEART: No significant abnormality. Cardiac silhouette not enlarged. MEDIASTINUM: Central airways and mediastinal contour are unremarkable. BONES/JOINTS: Degenerative changes in the spine and shoulders. Likely chronic right posterior lateral rib fracture. SOFT TISSUES: No significant abnormality. VASCULATURE: Atherosclerosis. TUBES, LINES AND DEVICES: The endotracheal tube is well-positioned with tip 3.2 cm above the ayah. There is also an enteric tube which is well-positioned with tip and side-port below the GE junction in the right internal jugular venous catheter with tip overlying the SVC. UPPER ABDOMEN: Partially visualized gaseous distention of bowel. RAD/Chest 1 View (Portable) IMPRESSION: 1. Patchy pulmonary opacities may be atelectasis or pneumonia. This is similar to the prior examination. 2. The endotracheal tube is well-positioned with tip 3.2 cm above the ayah. There is also an enteric tube which is well-positioned with tip and side-port below the GE junction in the right internal jugular venous catheter with tip overlying the SVC. 3. Partially visualized gaseous distention of bowel. Electronically Signed: Jonatan Rivera DO at 10:31 EDT ,
[2023-06-14 09:54] LABS: Allen Test Positive; Base Excess -26 mmol/L (-2 to +2); Bicarbonate 8.2 mmol/L (22-26); Blood Gas Specimen Type ART; Mode AC; O2 Delivery Device Adult Vent; PEEP 5; PO2 155 mmHG (75-100); RR 14; SITE R Brach; SO2 97 % (95-99); Total Carbon Dioxide 10 mmol/L; pCO2 47.6 mmHg (35-45); pH 6.84 (7.35-7.45)
[2023-06-14] MEDS: Vasopressin 20 UNITS in 0.9% Normal Saline (50mL Bag) 24 ML 3 UNITS CONT INF ×2 (10:35→14:53)
[2023-06-14] MEDS: Sodium Bicarbonate 8.4% 50 ML Syringe 100 MEQ IV (10:40)
[2023-06-14] MEDS: Epinephrine (1 mg/ml) 1 MG in 0.9% Normal Saline (250mL Bag) 250 ML 15.1 MG CONT INF (10:57)
--- NOTE | 2023-06-14 10:57 | PCMCONS.TICU ---
HPI Consult Data Date of Consult: 06/14/23 HPI Narrative Reason for Consultation: sp cardiac arrest, shock with multiorgan failure HPI Narrative: 72Y F PMH metastatic NSCLC with mets to pancreas/kidney on active chemotherapy (new agent started ~last week), COPD/Asthma, Former tobacco use, Anxiety and Depression, Chronic anemia, CKD stage II who was initially admitted on 06/11/23 with nonspecific complaints of not feeling well, loose stools, poor appetite and fever of 100.5. She was found to have febrile neutropenia and admitted for further treatment. She also tested positive for C. diff after admission. Despite initial improvements the patient was found this morning to be acutely worse with hypotension, mottled extremities, guppy breathing and altered mentation. She was emergently transferred to the ICU and given fluids and NEpi. Given her worsening respiratory status she was emergently intubated and a central line was placed. Despite these measures she developed bradycardia and ultimately received 2 doses of atropine. She progressed to PEA cardiac arrest at 0903 and ultimately had sustained/strong ROSC ~0909. She received 2 doses Epi, HCO3 push as well as 2g Mg sulfate during the code. Afterwards she was noted to have severe acidosis with pH 6.8 and worsening serum bicarb levels. I was emergently asked to consult on her at this point for on-going life sustaining interventions. [facility] Medical History Adenocarcinoma of lung Anxiety and depression Asthma-COPD overlap syndrome BMI 23.0-23.9, adult COPD (chronic obstructive pulmonary disease) Former smoker History of echocardiogram History of stress test Wears dentures Wears glasses Home Medications cholecalciferol (vitamin D3) 250 mcg (10,000 unit) capsule 250 mcg PO DAILY supplement 08/05/22 [History Last Taken 05/10/23] mecobalamin (vitamin B12) 2,500 mcg chewable tablet 2,500 mcg PO DAILY supplement 08/05/22 [History Last Taken 05/10/23] Nebulizer machine #1 ea 08/29/22 [Rx Last Taken Unknown] albuterol sulfate 2.5 mg/3 mL (0.083 %) solution for nebulization 2.5 mg (3 mL) inhalation Q4H PRN Sob &/Or Wheezing #180 mL 08/29/22 [Rx Last Taken Unknown] albuterol sulfate 90 mcg/actuation aerosol inhaler (Ventolin HFA) 2 puff inhalation Q4H PRN shortness of breath or wheezing #18 grams 08/29/22 [Rx Last Taken Unknown] fluticasone fur. 200 mcg-umeclid 62.5 mcg-vilant 25 mcg inhalat.powder (Trelegy Ellipta) 1 inh inhalation DAILY breathing #3 ea 11/17/22 [Rx Last Taken 05/11/23] folic acid 1 mg tablet 1 mg PO DAILY vit 05/24/23 [History Last Taken Unknown] alprazolam 0.5 mg tablet 0.5 mg PO BID PRN PRN anxiety 06/12/23 [History Last Taken Unknown] guaifenesin 1,200 mg tablet, extended release 12 hr (Mucus Relief ER) 1,200 mg PO QHS MUCOUS 06/12/23 [History Last Taken Unknown] hydrocodone-acetaminophen 5-325mg 5mg-325mg 1 tab PO Q6H PRN PAIN 06/12/23 [History Last Taken Unknown] ondansetron 8 mg disintegrating tablet 8 mg PO Q8H PRN NAUSEA 06/12/23 [History Last Taken Unknown] Allergy/AdvReac Type Severity Reaction Status Date / Time No Known Allergies Allergy Verified 06/11/23 20:16 Family History Father Asthma Son Asthma Mother Breast cancer Uncle Diabetes Type 1 Surgical History H/O tubal ligation Hx of tonsillectomy Social History (Updated 06/12/23 @ 01:[address] Rosalina Villanueva MD) household members: none Smoking Status: Former smoker quit date: 03/23/22 Tobacco: How many years used: 50 how long ago did patient quit smokin03/2022 alcohol intake: never substance use type: does not use caffeine: Yes Type: coffee Number of servings: 2 ROS ROS Narrative Unable to obtain due to clinical condition Objective Data Objective Data Vital Signs: Vital Signs Last response Temperature 35.5 C L 06/14/23 07:50 Temperature Source Temporal 06/14/23 07:50 Pulse Rate 107 H 06/14/23 09:08 Pulse Strength Normal (2+) 06/13/23 22:00 Respiratory Rate 32 H 06/14/23 09:08 Respiratory Effort Short of Breath, Labored 06/14/23 07:52 Respiratory Depth Normal 06/12/23 22:11 Respiratory Pattern Irregular 06/14/23 09:08 Blood Pressure 100/59 L 06/14/23 07:50 Blood Pressure Mean 72 06/14/23 07:50 Blood Pressure Source Monitor 06/14/23 07:50 Blood Pressure Position Semi-Fowlers 06/14/23 07:50 Blood Pressure Location Right Arm 06/14/23 07:50 Pulse Ox 78 06/14/23 07:50 Oxygen Delivery Method Nasal Cannula 06/14/23 07:52 Oxygen Flow Rate (L/min) 4 06/14/23 07:52 Fraction of Inspired Oxygen (FIO2) 100 06/14/23 09:08 I&O: I&O Last 24 Hours 06/13/23 06/13/23 06/14/23 11:59 23:59 11:59 Intake Total 104.17 / 1823.59 1519.42 / 1823.59 2169.33 / 2169.33 Balance 104.17 / 1823.59 1519.42 / 1823.59 2169.33 / 2169.33 I&O: Total Stay 06/11/23 20:14 thru 06/14/23 10:51 Intake Total 8118.75 Output Total 200 Balance 7918.75 Current Meds Ordered / Administered: Current meds ordered / Administered Generic Name Dose Route Start Last Admin Trade Name Freq PRN Reason Stop Dose Admin Acetaminophen 650 mg 06/12/23 01:22 06/13/23 05:40 Acetaminophen 325 Mg Tablet PO 650 mg Q4H PRN PRN Administration Fever, pain 1-10/10 Al Hydroxide/Mg Hydroxide 30 ml 06/12/23 01:22 Mag Hydrox/Al Hydrox/Simeth 30 Ml Udc PO Q6H PRN PRN Gastric Burning Albuterol Sulfate 2.5 mg 06/12/23 01:22 Albuterol 2.5 Mg/3 Ml Vial.Neb. INHALATION Q2H PRN PRN Dyspnea, wheezing Alprazolam 0.5 mg 06/12/23 14:18 06/14/23 06:03 Alprazolam 0.5 Mg Tablet PO 0.5 mg BID PRN PRN Administration anxiety Budesonide 0.5 mg 06/12/23 01:22 06/13/23 10:36 Budesonide Respules 0.5 Mg/2 Ml Ampul.Neb. INHALATION 0.5 mg BID.RT RUI Administration Calamine/Phenol 1 applic 06/12/23 10:00 06/14/23 10:51 Menthol/Lanolin/Calamine/Znox 113 Gm Tube TOPICAL Not Given 4X/DAY RUI Protocol Enoxaparin Sodium 30 mg 06/14/23 10:00 Enoxaparin 30 Mg/0.3 Ml Syringe SC DAILY RUI Famotidine 20 mg 06/12/23 10:00 06/13/23 09:39 Famotidine 20 Mg Tablet PO 20 mg DAILY RUI Administration Folic Acid 1 mg 06/12/23 08:00 06/14/23 10:50 Folic Acid 1 Mg Tablet PO Not Given DAILYCM RUI Guaifenesin 20 ml 06/12/23 01:22 Guaifenesin 10 Ml Udc (200mg/10ml) PO Q4H PRN PRN COUGH Hydralazine HCl 10 mg 06/12/23 01:22 Hydralazine 20 Mg/Ml Vial IV Q4H PRN PRN SBP > 160 Protocol Piperacillin Sod/Tazobactam 50 mls @ 12.5 mls/hr 06/12/23 06:00 06/14/23 05:23 Sod 3.375 gm/ Sodium Chloride IV 12.5 mls/hr Q8 RUI Administration Sodium Chloride 250 mls @ 15 mls/hr 06/12/23 01:58 06/14/23 07:25 IV Infused .[id number] PRN Infusion Saline Flush Sodium Chloride 1,000 mls @ 125 mls/hr 06/13/23 12:00 06/14/23 10:51 IV 06/14/23 11:59 Infused .Q8H RUI Infusion Norepinephrine Bitartrate 8 mg 250 mls @ 9.375 mls/hr 06/14/23 08:25 06/14/23 08:45 / Sodium Chloride CONT INF 5 mcg/min .[id number] RUI 9.4 mls/hr Administration Protocol 5 MCG/MIN Fentanyl 100 mls @ 5 mls/hr 06/14/23 08:45 06/14/23 10:51 CONT INF Not Given UD RUI Protocol 50 MCG/HR Propofol 1,000 mg in 100 mls @ 3.54 mls/hr 06/14/23 08:45 06/14/23 10:51 Diprivan CONT INF Not Given .Q12H RUI Protocol 10 MCG/KG/MIN Vasopressin 20 units/ Sodium 25 mls @ 3 mls/hr 06/14/23 09:05 06/14/23 10:35 Chloride CONT INF 0.04 units/min .Q8H20M RUI 3 mls/hr Administration 0.04 UNITS/MIN Epinephrine HCl 1 mg/ Sodium 251 mls @ 15.06 mls/hr 06/14/23 10:45 Chloride CONT INF .[id number] [facility] Protocol 1 MCG/MIN Sodium Bicarbonate 100 meq/ 1,100 mls @ 150 mls/hr 06/14/23 10:35 Dextrose IV .Q7H20M RUI Melatonin 3 mg 06/12/23 01:22 Melatonin 3 Mg Tablet PO QHS PRN PRN INSOMNIA Ondansetron HCl 4 mg 06/12/23 01:22 Ondansetron 4 Mg/2 Ml Vial IV Q8H PRN PRN NAUSEA/VOMITING Prochlorperazine Edisylate 5 mg 06/12/23 01:22 Prochlorperazine 10 Mg/2 Ml Vial IV Q4H PRN PRN Breakthrough nausea/vomiting Sodium Chloride 10 - 40 ml 06/12/23 01:58 0.9% Saline Lock 10 Ml Syringe IV UD PRN SALINE FLUSH Vancomycin HCl 125 mg 06/13/23 00:00 06/14/23 05:23 Vancomycin 125 Mg/5 Ml Susp Po.Syringe PO 125 mg Q6 RUI Administration Lab / Micro Data 06/14/23 10:10 06/14/23 10:10 Labs: Laboratory Results - last 24 hr 06/14/23 06:28: WBC 22.3 H, RBC 4.86, Hgb 15.7 H, Hct 49.1 H, MCV 101.0 H D, MCH 32.3 H, MCHC 32.0 D, RDW Std Deviation 54.5 H, RDW Coeff of Francie 14.6, Plt Count 377, MPV 10.4, Immature Gran % (Auto) 10.800 H, Neut % (Auto) 64.3, Lymph % (Auto) 5.4 L, Benton % (Auto) 19.4 H, Eos % (Auto) 0.0, Baso % (Auto) 0.1, Absolute Neuts (auto) 14.4 H, Absolute Lymphs (auto) 1.20, Nucleated RBC % 6.6 H, Diff Path Review July, Sodium 128 L, Potassium 5.6 H, Chloride 103, Carbon Dioxide 11.0 L, Anion Gap 14, BUN 31 H, Creatinine 1.44 H, Estim Creat Clear Calc 29.15, Est GFR (MDRD) Af Amer 46 L, Est GFR (MDRD) Non-Af 38 L, BUN/Creatinine Ratio 21.5 H, Glucose 121 H, Calcium 7.7 L Micro: Microbiology 06/11/23 22:03 Blood Culture (Wb) - No Site/Description Given Blood Culture - Final Clostridium septicum 06/11/23 16:18 Stool Stool Lactoferrin - Final 06/11/23 16:18 Stool Enteric Bacteriology - Final 06/11/23 16:18 Stool C. difficile GDH Antigen & Toxins - Final Toxigenic C. difficile 06/11/23 16:18 Stool Clostridioides difficile (PCR) - Final ABG Data ABG results: ABG 06/14/23 09:49 Specimen Type ART Sample Site R Brach pH 6.84 L* Bicarbonate Actual 8.2 L Total CO2 10 Base Excess -26 L O2 Saturation 97 O2 % 100.0 ABG pCO2 47.6 H ABG pO2 155 H Itz Test Positive Respiration Rate 14 O2 Delivery Device Adult Vent Vent Mode AC Tidal Volume 350.0 POC PEEP 5 Crit Call To/Read Back Yes Blood Gas Notified Whom bam Blood Gas Notified Time 09:50:31 Imaging Radiology Impression Echocardiogram 06/12/23 14:20 Interpretation Summary The estimated ejection fraction is 55-60 %. Ordering Physician: Graciela Quijano Performed By: Dante Moe RCS Chest X-Ray 06/14/23 09:15 IMPRESSION: 1. Patchy pulmonary opacities may be atelectasis or pneumonia. This is similar to the prior examination. 2. The endotracheal tube is well-positioned with tip 3.2 cm above the ayah. There is also an enteric tube which is well-positioned with tip and side-port below the GE junction in the right internal jugular venous catheter with tip overlying the SVC. 3. Partially visualized gaseous distention of bowel. Electronically Signed: Jonatan Rivera, at 10:31 EDT , KUB X-Ray 06/14/23 09:15 IMPRESSION: 1. At the time of this examination, the endotracheal tube appears to extend into the right mainstem bronchus, subsequently retracted. 2. Ill-defined opacities in the bibasilar lungs perhaps evidence of atelectasis or pneumonia. 3. The enteric tube tip and side-port well below the level of the GE junction. 4. Gaseous distention of bowel loops in the upper abdomen. Electronically Signed: Jonatan Rivera DO at 10:33 EDT , Assessment and Plan . Assessment and plan: PE: General: acute on chronically ill well developed female; +MV HEENT: anicteric Sclera; + ETT, nl nose; supple neck, no masses Cardiovascular: tachy; No murmurs, rubs, gallops; no displaced PMI Respiratory: clear B/L; no crackles, wheezes, or rhonchi Abdominal: Non distended; hypoBS x 4; No Hepatosplenomegaly Extremities: Cool, mottled; No cyanosis; capillary refill > 2 sec Neurological: unresponsive A/P: #Acute respiratory failure #Shock, septic #SP cardiac arrest #WILLY #Severe metabolic acidosis #Hyponatremia #Shock liver #Febrile neutropenia #Immunosuppressed 2* active chemo #Metastatic NSCLC #Reported COPD/asthma -Cont MV; settings reviewed & adjusted to maximally ventilate in the setting of life threatening acidosis -Cont NEpi, added vaso + Epi gtts; sp fluid boluses; check lactate -Broad emp IV Abx coverage + C. diff treatment; ID on board; F/U Cx -Trend Simone, repeat TTE -SP HCO3 pushes; start HCO3; cont strict I/Os, consult nephro; candidate for CRRT if she stabilizes -Trend LFTs -Monitor Na and other lytes NPO SCDs Grave prognosis; survival not expected DNR 06/13: I had a lengthy conversation with the patient's 3 children who are at bedside and explained in detail patient's condition and prognosis. We discussed goals of care and they agreed to change to DNR. Update: Pt with progressive worsening despite max life sustaining interventions. LA > 9 and recheck pending but anticipate will be worse. Likely 2* to dysregulated process in profound septic shock but ischemic gut or other etiology possible. I had several F/U conversations with the nurse & RT. I also had another long conversation with the family re: prognosis and goals of care. They verbalized understanding re: patient's grim condition and clinical worsening despite max support. They are deciding between continued care vs no escalation or withdrawal life support. Critical Care Time: 60 min The entirety of this encounter was done via Telemedicine
[2023-06-14] MEDS: Sodium Bicarbonate 100 MEQ in Dextrose 5%-Water (1000mL Bag) 1,000 ML 150 MEQ IV (10:59)
[2023-06-14] MEDS: Budesonide Respules 0.5 MG/2 ML AMPUL.NEB. INHALATION (11:21)
[2023-06-14] MEDS: Albuterol 2.5 MG/3 ML VIAL.NEB. INHALATION (11:22)
[2023-06-14 11:30] LABS: CPK Total, Creatine Kinase 190 U/L (26-192); Triglycerides 314 mg/dL
[2023-06-14 11:33] LABS: Hematocrit 38.8 % (37-47); Hemoglobin 11.8 g/dL (12.0-15.0); Mean Corp Hgb Conc 30.4 g/dL (32-36); Mean Corpuscular Hgb 31.5 pg (27.0-32.0); Mean Corpuscular Volume 103.5 fL (81-99); Mean Platelet Vol. 9.9 fl (6.2-12.0); POSITIVE COUNT YES; POSITIVE DIFFERENTIAL YES; POSITIVE MORPHOLOGY YES; Platelet Count 297 K/mm3 (150-450); RBC Distribution Width CV 14.7 % (11.6-14.6); RBC Distribution Width SD 55.7 fl (35.1-43.9); Red Blood Count 3.75 M/mm3 (4.2-5.4)
[2023-06-14 11:39] LABS: White Blood Count 31.9 K/mm3 (4.4-11.0)
[2023-06-14 11:42] LABS: Differential Indicated MANUAL DIFF
[2023-06-14 11:47] LABS: ALB/GLOB Ratio 0.4 RATIO (0.9-2.4); AST(SGOT) 2391 U/L (15-37); Alanine Aminotransfer ALT/SGPT 1808 U/L (13-56); Alkaline Phosphatase 192 U/L (45-117); Anion Gap 19 (5-15); BUN 36 mg/dL (7-18); BUN/Creat Ratio 21.7 RATIO (10-20); Calcium,Total 6.4 mg/dL (8.5-10.1); Chloride 106 mmol/L (98-107); Creatinine, Serum 1.66 mg/dL (0.55-1.02); EST Glomerular Filtration Rate 32 mL/min (>60); Est Glom Filt Rate - Afr Amer 39 mL/min (>60); Estimated Creatinine Clearance 25.28 ml/min; Globulin 2.7 g/dL (2.2-4.2); Glucose 106 mg/dL (74-106); Phosphorus 7.8 mg/dL (2.5-4.9); Potassium 4.4 mmol/L (3.5-5.1); Protein, Total 3.7 g/dL (6.4-8.2); Sodium Level 135 mmol/L (136-145); Troponin-I HS 15 pg/mL (3.0-54.0)
[2023-06-14 11:47] LABS: Lactic Acid 9.4 mmol/L (0.4-1.9)
--- NOTE | 2023-06-14 12:05 | RAD_ITS ---
HISTORY: r/o Pneumo. TECHNIQUE: XR Chest 1 View. COMPARISON: 09:31. FINDINGS: LINES/TUBES: Right internal jugular central venous catheter tip at the level of the superior vena cava. Endotracheal tube tip 3-4 cm above the ayah. Nasogastric tube tip in the left upper quadrant region of the stomach with gaseous distention of bowel in the upper abdomen again seen. CARDIOMEDIASTINAL BORDERS: Stable. LUNGS: Mass or masslike consolidation in the right perihilar region again seen. Mild bibasilar opacities, decreased on the left. PLEURA: No pleural effusion or pneumothorax. RAD/Chest 1 View (Portable) IMPRESSION: No pneumothorax identified. Decreased left basilar atelectasis or pneumonia. Electronically Signed: Valentina Coffman MD at 13:13 EDT ,
[2023-06-14 12:16] LABS: Basophil 2 % (0-1); Lymphocyte 13 % (19-41); Metamyelocyte 6 % (0-1); Monocyte 1 % (0-10); Myelocyte 9 % (0-0); Neutrophil-Band 17 % (0-5); Neutrophil-Segmented 44 % (47-70); Nucleated Red Bld Cells,Manual 5 % (0-5); Promyelocyte 8 % (0-0); Total Cells Counted 100 (MANUAL DIFF)
[2023-06-14 12:17] LABS: Absolute Lymphocyte Count 4.15 X10^3/uL (0.83-4.51); Absolute Neutrophil Count 19.5 X10^3/uL (2.0-7.7); Platelet Estimate ADEQUATE (ADEQ)
[2023-06-14 12:18] LABS: Red Cell Morphology NORM C+C NORMAL (NORM C&C)
[2023-06-14 12:19] LABS: Platelet Morphology LARGE
[2023-06-14] MEDS: Famotidine 20 MG Tablet PO (12:30)
[2023-06-14] MEDS: Enoxaparin 30 MG/0.3 ML Syringe SC (12:31)
--- NOTE | 2023-06-14 13:24 | OP.PCM_ITS ---
Report of Operation Date of Procedure: 06/14/23 Pre-Operative Diagnosis: hypotension Post-Operative Diagnosis: same Surgery/Procedure Performed:: placement of right femoral lew Surgeon: Belen Martinez Specimen's removed: none Estimated Blood Loss (mL): < 10 cc Description of Procedure: Patient's right groin was prepped draped usual sterile fashion with chlorhexidin e. Ultrasound was used to locate the right femoral artery. Under ultrasound visualization needle was placed in the artery and pulsatile blood was aspirated. Guidewire was placed and easily advanced. Pediatric catheter was placed and wire was removed. Catheter was attached to the pressure bag. Patient did have a good waveform systolic pressure was 104. This was sutured in place with 3-0 Vicryl. Dressing was placed. Complications none
--- NOTE | 2023-06-14 13:24 | CON.PCM.SX_ITS ---
Assessment & Plan Assessment/Plan (1) Hypotension: PLAN: Plan Plan to place right femoral art line. Consent was obtained from family. Belen Martinez M.D. Pager: [phone] [facility] [address] [place] [address], [facility], [address] [place] [address] Office: [phone] HPI Consult Data Date of Consult: 06/14/23 HPI Narrative Reason for Consultation: Hypotension/insertion of femoral A-line HPI Narrative: MARIAM KOCH, is a 72 F who admitted and transferred to the ICU this morning due to hypotension. Patient was intubated and was on 3 pressors unable to get a line. Requested placed femoral and A-line. ON LICENSE OF [facility] Medical History Adenocarcinoma of lung Anxiety and depression Asthma-COPD overlap syndrome BMI 23.0-23.9, adult COPD (chronic obstructive pulmonary disease) Former smoker History of echocardiogram History of stress test Wears dentures Wears glasses Home Medications cholecalciferol (vitamin D3) 250 mcg (10,000 unit) capsule 250 mcg PO DAILY supplement 08/05/22 [History Last Taken 05/10/23] mecobalamin (vitamin B12) 2,500 mcg chewable tablet 2,500 mcg PO DAILY supplement 08/05/22 [History Last Taken 05/10/23] Nebulizer machine #1 ea 08/29/22 [Rx Last Taken Unknown] albuterol sulfate 2.5 mg/3 mL (0.083 %) solution for nebulization 2.5 mg (3 mL) inhalation Q4H PRN Sob &/Or Wheezing #180 mL 08/29/22 [Rx Last Taken Unknown] albuterol sulfate 90 mcg/actuation aerosol inhaler (Ventolin HFA) 2 puff inhalation Q4H PRN shortness of breath or wheezing #18 grams 08/29/22 [Rx Last Taken Unknown] fluticasone fur. 200 mcg-umeclid 62.5 mcg-vilant 25 mcg inhalat.powder (Trelegy Ellipta) 1 inh inhalation DAILY breathing #3 ea 11/17/22 [Rx Last Taken 05/11/23] folic acid 1 mg tablet 1 mg PO DAILY vit 05/24/23 [History Last Taken Unknown] alprazolam 0.5 mg tablet 0.5 mg PO BID PRN PRN anxiety 06/12/23 [History Last Taken Unknown] guaifenesin 1,200 mg tablet, extended release 12 hr (Mucus Relief ER) 1,200 mg PO QHS MUCOUS 06/12/23 [History Last Taken Unknown] hydrocodone-acetaminophen 5-325mg 5mg-325mg 1 tab PO Q6H PRN PAIN 06/12/23 [History Last Taken Unknown] ondansetron 8 mg disintegrating tablet 8 mg PO Q8H PRN NAUSEA 06/12/23 [History Last Taken Unknown] Allergy/AdvReac Type Severity Reaction Status Date / Time No Known Allergies Allergy Verified 06/11/23 20:16 Family History Father Asthma Son Asthma Mother Breast cancer Uncle Diabetes Type 1 Surgical History H/O tubal ligation Hx of tonsillectomy Social History (Updated 06/12/23 @ 01:[address] Rosalina Villanueva MD) household members: none Smoking Status: Former smoker quit date: 03/23/22 Tobacco: How many years used: 50 how long ago did patient quit smokin03/2022 alcohol intake: never substance use type: does not use caffeine: Yes Type: coffee Number of servings: 2 ROS Review of Systems ROS Unobtainable: due to endotracheal tube and due to mental status Physical Exam Const Constitutional Narrative: Patient intubated/sedated Extremity Extremity Narrative: Right femoral artery was visualized under ultrasound. Lab / Micro Data 06/14/23 10:10 06/14/23 10:10 Labs: Laboratory Results - last 24 hr 06/14/23 06:28: WBC 22.3 H, RBC 4.86, Hgb 15.7 H, Hct 49.1 H, MCV 101.0 H D, MCH 32.3 H, MCHC 32.0 D, RDW Std Deviation 54.5 H, RDW Coeff of Francie 14.6, Plt Count 377, MPV 10.4, Immature Gran % (Auto) 10.800 H, Neut % (Auto) 64.3, Lymph % (Auto) 5.4 L, Knott % (Auto) 19.4 H, Eos % (Auto) 0.0, Baso % (Auto) 0.1, Absolute Neuts (auto) 14.4 H, Absolute Lymphs (auto) 1.20, Nucleated RBC % 6.6 H , Diff Path Review July foll, Sodium 128 L, Potassium 5.6 H, Chloride 103, Carbon Dioxide 11.0 L, Anion Gap 14, BUN 31 H, Creatinine 1.44 H, Estim Creat Clear Calc 29.15, Est GFR (MDRD) Af Amer 46 L, Est GFR (MDRD) Non-Af 38 L, BUN/Creatinine Ratio 21.5 H, Glucose 121 H, Calcium 7.7 L 06/14/23 10:10: WBC 31.9 H*, RBC 3.75 L, Hgb 11.8 L, Hct 38.8, MCV 103.5 H, MCH 31.5, MCHC 30.4 L, RDW Std Deviation 55.7 H, RDW Coeff of Francie 14.7 H, Plt Count 297, MPV 9.9, Neut % (Auto) Not Reportable, Absolute Neuts (auto) 19.5 H, Absolute Lymphs (auto) 4.15, Total Counted 100, Neutrophils % (Manual) 44 L, Band Neutrophils % 17 H, Lymphocytes % (Manual) 13 L, Monocytes % (Manual) 1, Basophils % (Manual) 2 H, Metamyelocytes % 6 H, Myelocytes % 9 H, Promyelocytes % 8 H, Nucleated RBCs/100 WBC 5, Diff Path Review July foll, Platelet Estimate ADEQUATE, Plt Morphology Comment LARGE, RBC Morphology NORM C+C, Sodium 135 L, Potassium 4.4, Chloride 106, Carbon Dioxide 10.0 L, Anion Gap 19 H, BUN 36 H, Creatinine 1.66 H, Estim Creat Clear Calc 25.28, Est GFR (MDRD) Af Amer 39 L, Est GFR (MDRD) Non-Af 32 L, BUN/Creatinine Ratio 21.7 H, Glucose 106, Calcium 6.4 L*, Phosphorus 7.8 H, Magnesium 4.0 H, Total Bilirubin 0.50, AST 2391 H, ALT 1808 H, Alkaline Phosphatase 192 H, Total Creatine Kinase 190, Troponin I High Sens 15, Total Protein 3.7 L, Albumin 1.0 L, Globulin 2.7, Albumin/Globulin Ratio 0.4 L, Triglycerides 314 H 06/14/23 11:15: Lactic Acid 9.4 H* Micro: Microbiology 06/11/23 22:03 Blood Culture (Wb) - No Site/Description Given Blood Culture - Final Clostridium septicum ABG Data ABG results: ABG 06/14/23 09:49 Specimen Type ART Sample Site R Brach pH 6.84 L* Bicarbonate Actual 8.2 L Total CO2 10 Base Excess -26 L O2 Saturation 97 O2 % 100.0 ABG pCO2 47.6 H ABG pO2 155 H Itz Test Positive Respiration Rate 14 O2 Delivery Device Adult Vent Vent Mode AC Tidal Volume 350.0 POC PEEP 5 Crit Call To/Read Back Yes Blood Gas Notified Whom bam Blood Gas Notified Time 09:50:31 Imaging Radiology Impression Echocardiogram 06/12/23 14:20 Interpretation Summary The estimated ejection fraction is 55-60 %. Ordering Physician: Graciela Quijano Performed By: Dante Moe RCS Chest X-Ray 06/14/23 09:15 IMPRESSION: 1. Patchy pulmonary opacities may be atelectasis or pneumonia. This is similar to the prior examination. 2. The endotracheal tube is well-positioned with tip 3.2 cm above the ayah. There is also an enteric tube which is well-positioned with tip and side-port below the GE junction in the right internal jugular venous catheter with tip overlying the SVC. 3. Partially visualized gaseous distention of bowel. Electronically Signed: Jonatan Rivera DO at 10:31 EDT , KUB X-Ray 06/14/23 09:15 IMPRESSION: 1. At the time of this examination, the endotracheal tube appears to extend into the right mainstem bronchus, subsequently retracted. 2. Ill-defined opacities in the bibasilar lungs perhaps evidence of atelectasis or pneumonia. 3. The enteric tube tip and side-port well below the level of the GE junction. 4. Gaseous distention of bowel loops in the upper abdomen. Electronically Signed: Jonatan Rivera DO at 10:33 EDT , Chest X-Ray 06/14/23 12:05 IMPRESSION: No pneumothorax identified. Decreased left basilar atelectasis or pneumonia. Electronically Signed: Valentina Coffman MD at 13:13 EDT , Charges/Coding Visit Charges Inpatient E&M: 51097 Init Hosp L2
[2023-06-14] MEDS: Norepinephrine 8 MG in 0.9% Normal Saline (250mL Bag) 242 ML 56.3 MG CONT INF (13:45)
[2023-06-14 13:54] LABS: Base Excess -18 mmol/L (-2 to +2); Blood Gas Specimen Type ART; Mode AC; O2 Delivery Device Adult Vent; PEEP 5; PO2 207 mmHG (75-100); RR 32; SITE Art Line; SO2 100 % (95-99); Total Carbon Dioxide 10 mmol/L; pCO2 19.3 mmHg (35-45); pH 7.28 (7.35-7.45)
--- NOTE | 2023-06-14 14:11 | PN_ITS ---
Subjective Subjective Patient was seen and examined this morning. I was called emergently by her nurse early this morning on account of patient being found very weak and lethargic and confused. She also had very cold and mottled extremities. I immediately rushed to see patient. She was alert but very restless and confused. She thought she was in [place]. Extremities were very cold. Patient's skin was multiple to touch. Decision made to urgently transfer patient to ICU. Blood pressure started dropping while she was on MedSurg 3 and at time of her being transferred to the ICU her blood pressure was 41/28. A probe oxygen saturation could not be obtained because of every cold extremities. The neoprobe was used but did not seem to be very accurate. She had been on IV fluids. I stated patient was emergently transferred to the ICU. While there, patient had to be emergently intubated on account of worsening respiratory status and altered mental status. A central line was also placed emergently due to shock not responsive to fluids. Critical care was consulted. Of note, had bicarb this morning had dropped to 11 from 18 yesterday and anion gap was 14. Concern therefore was for possible ischemic process which was driving this underlying deterioration. Objective Data Objective Data Vital Signs: Vital Signs Temp Pulse Resp BP Pulse Ox O2 Del Method O2 Flow Rate 96 F L 120 H 33 H 100/59 L 93 Nasal Cannula 4 06/14/23 07:50 06/14/23 13:55 06/14/23 13:55 06/14/23 07:50 06/14/23 13:55 06/14/23 07:52 06/14/23 07:52 FiO2 35 06/14/23 13:55 Oxygen Flow Rate (L/min) 4 Oxygen Delivery Method Nasal Cannula Weight: 130 lb 1.164 oz Body Mass Index (BMI) 24.5 Intake & Output: Intake and Output for Last 24 Hours 06/12/23 06/13/23 06/14/23 23:59 23:59 23:59 Intake Total 3325.83 / 3325.83 1623.59 / 1823.59 2391.94 / 2391.94 Output Total 200 / 200 Balance 3125.83 / 3125.83 1623.59 / 1823.59 2391.94 / 2391.94 Lab / Micro Data 06/14/23 10:10 06/14/23 10:10 Labs: Laboratory Results - last 24 hr 06/14/23 06:28: WBC 22.3 H, RBC 4.86, Hgb 15.7 H, Hct 49.1 H, MCV 101.0 H D, MCH 32.3 H, MCHC 32.0 D, RDW Std Deviation 54.5 H, RDW Coeff of Francie 14.6, Plt Count 377, MPV 10.4, Immature Gran % (Auto) 10.800 H, Neut % (Auto) 64.3, Lymph % (Auto) 5.4 L, [place] % (Auto) 19.4 H, Eos % (Auto) 0.0, Baso % (Auto) 0.1, Absolute Neuts (auto) 14.4 H, Absolute Lymphs (auto) 1.20, Nucleated RBC % 6.6 H , Diff Path Review July niki, Sodium 128 L, Potassium 5.6 H, Chloride 103, Carbon Dioxide 11.0 L, Anion Gap 14, BUN 31 H, Creatinine 1.44 H, Estim Creat Clear Calc 29.15, Est GFR (MDRD) Af Amer 46 L, Est GFR (MDRD) Non-Af 38 L, BUN/Creatinine Ratio 21.5 H, Glucose 121 H, Calcium 7.7 L 06/14/23 10:10: WBC 31.9 H*, RBC 3.75 L, Hgb 11.8 L, Hct 38.8, MCV 103.5 H, MCH 31.5, MCHC 30.4 L, RDW Std Deviation 55.7 H, RDW Coeff of Francie 14.7 H, Plt Count 297, MPV 9.9, Neut % (Auto) Not Reportable, Absolute Neuts (auto) 19.5 H, Absolute Lymphs (auto) 4.15, Total Counted 100, Neutrophils % (Manual) 44 L, Band Neutrophils % 17 H, Lymphocytes % (Manual) 13 L, Monocytes % (Manual) 1, Basophils % (Manual) 2 H, Metamyelocytes % 6 H, Myelocytes % 9 H, Promyelocytes % 8 H, Nucleated RBCs/100 WBC 5, Diff Path Review May niki, Platelet Estimate AD EQUATE, Plt Morphology Comment LARGE, RBC Morphology NORM C+C, Sodium 135 L, Potassium 4.4, Chloride 106, Carbon Dioxide 10.0 L, Anion Gap 19 H, BUN 36 H, Creatinine 1.66 H, Estim Creat Clear Calc 25.28, Est GFR (MDRD) Af Amer 39 L, Est GFR (MDRD) Non-Af 32 L, BUN/Creatinine Ratio 21.7 H, Glucose 106, Calcium 6.4 L*, Phosphorus 7.8 H, Magnesium 4.0 H, Total Bilirubin 0.50, AST 2391 H, ALT 1808 H, Alkaline Phosphatase 192 H, Total Creatine Kinase 190, Troponin I High Sens 15, Total Protein 3.7 L, Albumin 1.0 L, Globulin 2.7, Albumin/Globulin Ratio 0.4 L, Triglycerides 314 H 06/14/23 11:15: Lactic Acid 9.4 H* Micro: Microbiology 06/11/23 22:03 Blood Culture (Wb) - No Site/Description Given Blood Culture - Final Clostridium septicum 06/11/23 16:18 Stool Stool Lactoferrin - Final 06/11/23 16:18 Stool Enteric Bacteriology - Final 06/11/23 16:18 Stool C. difficile GDH Antigen & Toxins - Final Toxigenic C. difficile 06/11/23 16:18 Stool Clostridioides difficile (PCR) - Final 06/12/23 01:37 Mucosa - Nasopharyngeal Respiratory Panel (PCR) - Final 06/12/23 02:35 Urine Catheter - Catheter Streptococcus pneumoniae Antigen (M - Final 06/12/23 02:35 Urine Catheter - Catheter Legionella Antigen - Final 06/11/23 21:35 Mucosa - Nose SARS-CoV-2, Influenza & RSV (PCR) - Final ABG Data ABG results: ABG 06/14/23 06/14/23 09:49 13:48 Specimen Type ART ART Sample Site R Brach Art Line pH 6.84 L* 7.28 L Bicarbonate Actual 8.2 L 9.0 L Total CO2 10 10 Base Excess -26 L -18 L O2 Saturation 97 100 H O2 % 100.0 70.0 ABG pCO2 47.6 H 19.3 L ABG pO2 155 H 207 H Itz Test Positive Respiration Rate 14 32 O2 Delivery Device Adult Vent Adult Vent Vent Mode AC AC Tidal Volume 350.0 500.0 POC PEEP 5 5 Crit Call To/Read Back Yes Blood Gas Notified Whom koram Blood Gas Notified Time 09:50:31 Radiography Diagnostic Testing: Radiology Impression Echocardiogram 03/22/24 14:20 Interpretation Summary The estimated ejection fraction is 55-60 %. Ordering Physician: Graciela Quijano Performed By: Dante Moe RCS Chest X-Ray 06/14/23 09:15 IMPRESSION: 1. Patchy pulmonary opacities may be atelectasis or pneumonia. This is similar to the prior examination. 2. The endotracheal tube is well-positioned with tip 3.2 cm above the ayah. There is also an enteric tube which is well-positioned with tip and side-port below the GE junction in the right internal jugular venous catheter with tip overlying the SVC. 3. Partially visualized gaseous distention of bowel. Electronically Signed: Jonatan Rivera DO at 10:31 EDT , KUB X-Ray 06/14/23 09:15 IMPRESSION: 1. At the time of this examination, the endotracheal tube appears to extend into the right mainstem bronchus, subsequently retracted. 2. Ill-defined opacities in the bibasilar lungs perhaps evidence of atelectasis or pneumonia. 3. The enteric tube tip and side-port well below the level of the GE junction. 4. Gaseous distention of bowel loops in the upper abdomen. Electronically Signed: Jonatan Rivera DO at 10:33 EDT , Chest X-Ray 06/14/23 12:05 IMPRESSION: No pneumothorax identified. Decreased left basilar atelectasis or pneumonia. Electronically Signed: Valentina Coffman MD at 13:13 EDT , Physical Exam Const Constitutional Narrative: patient intubated, sedated, RASS score is -4 HEENT HEENT Narrative: patient intubated, sedated. Eyes PERRL and EOMs intact bilaterally Neck no lymphadenopathy and supple Lymph Lymphatic: no lymphadenopathy noted and no lymphedema noted Resp Resp Narrative: intubated, sedated, RASS score is -4. diminished breath sounds bilaterally, coarse crackles. Cardio regular rhythm, S1 normal heart sound, S2 normal heart sound and no murmurs Cardio Narrative: tachycardicv GI GI Narrative: abdomen mildly distended, nontender, very mottled skin on her abdomen Extremity Extremity Narrative: extremities very cold to touch, mottled skin, pulse weak Skin Skin Narrative: skin mottled and pale generally. SKin very cool to touch Neuro Neuro Narrative: intubated, sedated. RASS score is -4 Psych Psych Narrative: intubated, sedated, RASS score is -4 Assessment & Plan Assessment/Plan (1) Neutropenic fever: (2) Hyponatremia: (3) Diarrhea: PLAN: Plan #Acute hypoxic respiratory failure * Etiology is unclear but suspected GI ischemic event which led to septic shock and resulted in the respiratory failure. * She was found very mottled and confused this morning with very cold extremiti es. * She was emergently transferred to the ICU where she became hypoxic and had to be emergently intubated. * Currently on IV vancomycin and Zosyn. Will continue antibiotics. * ID on board. Critical care also consulted. * She did have 2D echo done on 06/13/2023 which showed EF of 55 to 60% with no regional motion abnormalities. * Currently on Levophed and vasopressin. A CODE BLUE was called after she had a central line placed and she was resuscitated with 2 doses of epinephrine and she also received an amp of bicarb. She had high-quality CPR and return of spontaneous circulation was obtained. * Prognosis is poor * #Acute cardiopulmonary arrest * As stated above, patient had a cardiac arrest and CODE BLUE was called after she was intubated and had central line placed. She had high-quality CPR. She was in [place]. She had 2 doses of epinephrine and an amp of bicarb. Return of spontaneous circulation was obtained. * Currently intubated and sedated and on Levophed and vasopressin. She also re ceived 1 dose of phenylephrine * Critical care on board. 2D echo as above * * #Septic shock * As mentioned patient likely had a possible ischemic bowel. He is also being managed for neutropenic fever due to gram-negative bacteremia and C. difficile infection. * She is on IV vancomycin and Zosyn as well as oral vancomycin. Blood cultures did grow gram-positive rods and MRSA PCR was positive * WBC also down to 22.6 today. * She is not requiring Levophed and vasopressin and is maxed out on these proc ess. * Bicarb this morning was 11 and anion gap was 14. Lactic acid is markedly elevated but that is to be expected in view of the hypotension and shock * Critical care reviewed patient and wanted an IV line inserted. Dr. Dr Martinez kindly assisted with insertion of the femoral arterial line. This will help with adequate monitoring of the blood pressure * Titrate vasopressors to maintain a MAP of more than 65. * Will benefit from abdominal imaging such as CT abdomen to evaluate for any GI etiology such as ischemic bowel once medically stable. #Neutropenic fever due to gram negative bacteremia * on chemotherapy for metastatic cancer * on IV vancomycin and zosyn * blood cultures now showing gram positive rods. * ID on board. * MRSA PCR positive * 2D echo done, read is pending * As above under septic shock * #C Diff infection * Was admitted with diarrhea and C. difficile screen done was positive for C. difficile. * Currently on oral vancomycin. * #Hyponatremia: Resolved. Sodium is 135. * Resolved * WBC is up to 7.6 today. Platelets are normal and hemoglobin is 12.8. Will monitor. * #WILLY: * Creatinine was 1.01 yesterday and today had trended up to 1.44 and then to 1.66. * Likely due to the septic shock. Patient on Levophed and vasopressin as mentioned above and also received IV fluids. If creatinine trends upwards consider consulting nephrology. 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 Shah did discuss prognosis with family today in light of the current sep tic shock and acute hypoxic respiratory failure. Family subsequently changed CODE STATUS to DNR CCA with intubation. * #Anxiety and depression; on xanax #COPD: not in exacerbation. Breathing treatment with bronchodilators. DVT prophylaxis: on lovenox Prognosis: Very poor. Family counseled about this and CODE STATUS was switched to DNR CCA with intubation Total time spent on the care of the patient today including counseling her family and her friend Genoveva who has been her caregiver, 92 mins Charges/Coding Visit Charges Inpatient E&M: 79529 PROLNG IP/OBS E/M EA 15 MIN
--- NOTE | 2023-06-14 14:26 | PCM.HOSP.N ---
Hospitalist Note Patient was emergently transferred to ICU today and decision made to intubate patient. INTUBATION NOTE Patient was preoxygenated with 100% oxygen via Ambu bag. Patient was given IV 20 mg of etomidate. After being placed in the appropriate sniffing position, a curved Ginny blade laryngoscope was inserted and the vocal cords visualized. A 7.5 [place] endotracheal tube was successfully inserted at first attempt and inflated. Color change was observed via capnography. Audible breath sounds were auscultated in the lungs. ET tube was 25 cm at the lip. Postprocedural chest x-ray ordered and showed that the ET tube was in the right main bronchus so was withdrawn 3 cm. Procedures Hospitalists Procedures: [id number] Insert Emergency Airway
--- NOTE | 2023-06-14 14:48 | PCM.PN.BLA ---
Progress Note Central Venous Catheter Indication: Septic shock Consent was obtained from: Emergent A time-out was completed verifying correct patient, procedure, site, positioning, and special equipment if applicable. The patient was placed in a dependent position appropriate for central line placement based on the vein to be cannulated. The patient's right neck and chest was prepped and draped in a sterile fashion. 1% lidocaine was used to anesthetize the surrounding skin area. A triple-lumen catheter was introduced into the right internal jugular vein using the Seldinger technique and under ultrasound guidance. The catheter was threaded smoothly over the guidewire and appropriate blood return was obtained. Each lumen of the catheter was evacuated of air and flushed with sterile saline. The catheter was then sutured in place to the skin and a sterile dressing applied. Chest x-ray to confirm appropriate positioning is pending. ULTRASOUND GUIDANCE STATEMENT (Vascular Access): I performed ultrasound image acquisition and interpretation for needle placement during the procedure. The vessel was identified and found to be free of thrombosis by compression technique. A safe point of entry was marked at the skin in an angle for axis was determined. The needle was guided by obtaining free-flowing fluid and by real-time visualization. Procedures Hospitalists Procedures: [id number] Insert Non-tunnel CV Cath
[2023-06-14] MEDS: Epinephrine (1 mg/ml) 1 MG in 0.9% Normal Saline (250mL Bag) 250 ML 135.5 MG CONT INF (15:06)
[2023-06-14 15:19] LABS: Reflex Lactate? Y
[2023-06-14] MEDS: Phenylephrine 10 MG in 0.9% Normal Saline (250mL Bag) 249 ML 15 MG CONT INF (15:54)
[2023-06-14 15:55] LABS: Base Excess -26 mmol/L (-2 to +2); Bicarbonate 4.4 mmol/L (22-26); Blood Gas Specimen Type ART; Mode AC; PEEP 5; PO2 105 mmHG (75-100); RR 32; SITE R Radial; SO2 95 % (95-99); Time Given 15:51:22; Total Carbon Dioxide < 5 mmol/L; pCO2 15.4 mmHg (35-45); pH 7.07 (7.35-7.45)
--- NOTE | 2023-06-14 16:13 | CPS ---
Pt cold and mottling, unable to obtain P-ox reading, Dr aware.
[2023-06-14] MEDS: LORazepam 2 MG/ML Syringe 1 MG IV (16:49)
[2023-06-14 16:55] LABS: Troponin-I HS 107 pg/mL (3.0-54.0)
--- NOTE | 2023-06-14 17:00 | NURSING ---
Patient terminally extubated at 1649, Time of 1700. Verified with Tenisha Tapia RN. Family at bedside
[2023-06-14 17:01] LABS: Lactic Acid 14.6 mmol/L (0.4-1.9)
[2023-06-14 17:18] LABS: O2 Delivery Device Vent
[2023-06-14] MEDS: Morphine 2 MG/ML Syringe IV (18:18)
--- NOTE | 2023-06-14 19:54 | PCM.DEATH ---
Preliminary Cause of Preliminary Cause of Preliminary Cause of : asystole due to acute cardiopulmonary arrest due to acute hypoxic respiratory failure from severe metabolic acidosis and septic shock underlying conditions: febrile neutropenia, staph bacteremia, C Diff infection Date of Admission: 06/11/23 Date of : 06/14/23 Principle Diagnosis Problem List: Active and Suspected Problems (Updated 06/14/23 @ 13:[address] Belen Martinez MD) Hypotension (Acute) Neutropenic fever (Acute) Hyponatremia (Acute) Diarrhea (Acute) Non-small cell cancer of right lung (Acute) Hospital Course Patient is a 72 y/o female with an extensive PMH as outlined including metastatic lung cancer who was admitted via the ED with a complaint of fever, chills and diarrhea as well as generalised weakness. She had received chemotherapy just a few days prior to admission. On admission she was febrile and also neutropenic. She was admitted and managed for febrile neutropenia. Shew was started on broad spectrum antibiotics. C diff testing was positive and she was also started on oral vancomycin. Blood cultures were positive for staph. ID was therefore consulted.Patient was responding to treatment, but on the morning of 06/14/2023, shw was found to be mottled and with cold extremities. She was very eak, confused and lethargic. She was emergently transferred to the ICU. Her blood pressure also dropped and she was emergently intubated. She also had a central line inserted and she was started on vasopressors due to septic shock. Labs showed that her bicarb had dropped and she had an anion gap metabolic acidosis. There was the supspicion of a possible ishemic gut pathology being the underlying etiology. Patient was howver too unstable to be taken down for an abdominal CT scan. Patient had a cardiopulmonary arrest after the central line was inserted. She was resuscitated with high quality CPR and given 2 doses of IV epinephrine. She also received an ampoule of bicarb and one dose phenylephrine. THere was spontaneous return of circulation. Critical care was urgently consulted. Critical care attending requested a femoral line to adequately monitor the arterial pressure. Dr Martinez of general surgery placed the femoral line. Patient however continued to deteriorate and was maxed out on levophed and vasopressin. She however continued to deteriorate and blood pressure continued to drop despite being maxed out on vasopressors. family was counseled about grim prognosis. Code status was switched to DNRCCA with intubation. Due to patient's worsening state, family decided to withdraw care. She was emergently extubated and patient at 1700 on 06/14/2023. Cause of is asystole due to acute hypoxic respiratory failure due to severe metabolic acidosis and septic shock. Contributory conditions include staph bacteremia and C diff infection. Visit Charges Inpatient E&M: 40884 Disch Hosp
[2023-06-15 09:44] LABS: Pathologist Review Reviewed
[2023-06-16 08:48] LABS: Pathologist Review Reviewed
[2023-06-16 08:51] LABS: Pathologist Review Reviewed
[2023-06-16 09:23] LABS: Pathologist Review Reviewed
[2023-06-16 09:36] LABS: Pathologist Review Reviewed
== END 2023-06-14 18:00 | DRG 808 ==
LOC: ED 23:11 → MS3 23:44 → ICU 06-14 11:14
PROVIDERS: Internal Medicine Pulmonary Disease; Physician Assistant; Admitting Provider Family Medicine; Emergency Provider Emergency Medicine; PCP Student in an Organized Health Care Education/Training Program; Visit Provider Student in an Organized Health Care Education/Training Program
DX: D70.9 Neutropenia, unspecified (principal); A41.02 Sepsis due to Methicillin resistant Staphylococcus aureus; R65.21 Severe sepsis with septic shock; J96.01 Acute respiratory failure with hypoxia; K72.00 Acute and subacute hepatic failure without coma; D84.821 Immunodeficiency due to drugs; E87.1 Hypo-osmolality and hyponatremia; C78.89 Secondary malignant neoplasm of other digestive organs; C79.01 Secondary malignant neoplasm of right kidney and renal pelvis; C34.2 Malignant neoplasm of middle lobe, bronchus or lung; N17.9 Acute kidney failure, unspecified; A04.72 Enterocolitis due to Clostridium difficile, not specified as recurrent; J44.9 Chronic obstructive pulmonary disease, unspecified; I46.2 Cardiac arrest due to underlying cardiac condition; F32.A Depression, unspecified; D63.0 Anemia in neoplastic disease; E86.1 Hypovolemia; N18.2 Chronic kidney disease, stage 2 (mild); F41.9 Anxiety disorder, unspecified; R50.81 Fever presenting with conditions classified elsewhere; T45.1X5A Adverse effect of antineoplastic and immunosuppressive drugs, initial encounter; Z66 Do not resuscitate; Z79.51 Long term (current) use of inhaled steroids; Z79.899 Other long term (current) drug therapy; Z87.891 Personal history of nicotine dependence
CPT/HCPCS: 31720; 36415; 36600; 71045; 71046; 74018; 80048; 80053; 81001; 82550; 82803; 83605; 83630; 83690; 83735; 84100; 84145; 84478; 84484; 85025; 87040; 87070; 87077; 87177; 87205; 87209; 87449; 87493; 87506; 87631; 87633; 87641; 93306; 94002; 94640; 94668; 97110; 97162; 97166; 97530; 99252; 99284; 99406; J7030; J7040; J7050; Q9957; A4216; C1751; G0463; J3475; J3490